=== PATIENT | male | born 1970 | race Caucasian/White ===

== ENCOUNTER 2024-06-07 15:26 | Inpatient (IN) ==
--- NOTE | 2024-06-07 16:02 | Emergency Department Note ---
Impression & Plan Alcoholic hepatitis with ascites, Jaundice, Alcohol use disorder, severe, dependence, Hyponatremia, Transaminitis, Elevated serum creatinine ED Provider Note NAME: RADHA WEEKS AGE: 53 SEX: M : 1970 ARRIVES VIA: Walk-In INFORMANT: Patient ED PROVIDER(S): Ramakrishna Sahu DO CHIEF COMPLAINT: Weakness, shortness of breath, jaundice HPI: Patient is a 53-year-old male who presents to the ER brought in for weakness, shortness of breath, and sleepiness. Symptoms started over a month ago. Patient notes that he has been gradually turning yellow. Family believes that this is actually has been present for the past 2 weeks. He admits to shortness of breath with exertion. Swelling of the legs which has been present for the past month. Admits to increased swelling in the abdomen which has been present for the past month. Denies any dysuria, urgency, or frequency. Admits to drinking a box of wine per day. Last drink was 1 PM today. No focal weakness or numbness in the arms legs. ADDITIONAL HISTORY OBTAINED: Girlfriend is present at bedside and notes that he has become more jaundiced over the past month. Sisters present bedside notes that he is been an alcoholic for the past several decades. Chronic Medical/Social Conditions Affecting Care: Per HPI PAST MEDICAL HISTORY:See Below PAST SURGICAL HISTORY:See Below FAMILY HISTORY:See Below SOCIAL HISTORY:See Below HOME MEDICATIONS:See Below ALLERGIES:See Below VITALS:See Below PHYSICAL EXAMINATION: GENERAL: Sitting up in bed, alert, jaundice of the face abdomen and legs EYE EXAM: normal conjunctiva. OROPHARYNX: mucous membranes are moist LUNGS: Clear to auscultation. Normal chest wall mechanics HEART: no murmurs, S1 normal and S2 normal ABDOMEN: abdomen soft, non-tender, normo-active bowel sounds, distended BACK: Back is symmetrical on inspection and there is no deformity, no midline tenderness, no CVA tenderness. SKIN: no rashes and no bruising UPPER EXTREMITIES: upper extremities are grossly normal. LOWER EXTREMITIES: Pitting edema NEURO EXAM: Normal sensorium, cranial nerves II-XII grossly intact, normal speech, no gross weakness of arms, no gross weakness of legs. MEDICAL DECISION MAKING: Patient is a 53-year-old male with a past medical history of alcohol abuse who presents to the ER for the above-stated complaint. IV was established and blood work was obtained. Labs showed a leukocytosis of 14,000 and mild anemia at 11. INR at 1.3. Hyponatremia at 114. CO2 slightly low at 19. Creatinine at 2.8. Transaminitis with AST of 212. ALT 64. Discussed with the kapok machine operator Dr. Griffin at 5:45 PM who recommended admission to the hospital service and close monitoring. No need for ICU admission at this time. T. bili at 40. Ammonia unable to calculate. Troponin mildly elevated at 40. Albumin at 3.3. Unable to calculate a lipase. UA shows epithelial cells. Urine sodium was ordered. Alcohol elevated at 170. CT abdomen pelvis shows pleural effusions and ascites as well as cirrhosis. Case was discussed with kapok machine operator Dr. Griffin who recommended admission to the hospitalist. Discussed with Dr. Lin who accept the patient to his service. Urine and serum osmole's are still pending upon admission. Patient was monitored closely. Consults/Care Managements Discussions: Per [facility] Triage Nursing notes reviewed. Limited review of prior medical records performed Vital Signs: reviewed and remarkable for no significant abnormalities Differential diagnosis: Infection, dehydration, metabolic abnormality, hypo/hyperglycemia, electrolyte disturbance, anemia, hypoxia, cardiac sources, intracerebral event, toxicologic, neurologic, as well as other pathologies. ER treatment provided: See below Diagnostics interpreted by me include EKG and cardiac monitoring as listed below: -Cardiac Monitoring: An order was placed for continuous cardiac monitoring. The monitor shows a rate of 90 with sinus rhythm. -ECG: Sinus rhythm rate 88 Normal axis No PVCs QTc 450 -Laboratory studies:Interpreted by me as stated above in MDM and shown below. Imaging studies: Xrays: As interpreted by me: Portable AP portable view of the chest shows no focal Lutrate CTs show: CT of the abdomen pelvis as described above Procedures:none Critical Care: I have personally spent 35 minutes of critical care time in the direct management of this patient. This includes bedside care, interpretation of diagnostic studies, and testing, discussion with consultants, patient, and family members, and other required patient management activities. This 35 minutes is in excess of all separately billable procedures. Past Med/Surg History Problem List (Updated 06/07/24 @ 18:47 by Willy Lo DO) Elevated serum creatinine Transaminitis Hyponatremia Alcohol use disorder, severe, dependence Jaundice Alcoholic hepatitis with ascites Social History Smoking Status: Never smoker Preferred Language: Namibian Feels Safe at Home: Yes Allergies Allergies Allergy/AdvReac Type Severity Reaction Status Date / Time No Known Allergies Allergy Verified 06/07/24 18:16 Home Meds Home Medications Medication Instructions Recorded Confirmed cholecalciferol (vitamin D3) 25 0 mcg PO DAILY 06/07/24 06/07/24 mcg (1,000 unit) capsule (Vitamin D3) cyanocobalamin (vitamin B-12) 0 mcg PO DAILY 06/07/24 06/07/24 1,000 mcg tablet (Vitamin B-12) empagliflozin 10 mg tablet 10 mg PO DAILY 06/07/24 06/07/24 (Jardiance) folic acid 400 mcg tablet 400 mcg PO DAILY 06/07/24 06/07/24 loratadine 10 mg tablet 10 mg PO DAILY 06/07/24 06/07/24 losartan 100 mg tablet 100 mg PO DAILY 06/07/24 06/07/24 omeprazole 40 mg capsule,delayed 40 mg PO DAILY 06/07/24 06/07/24 release Results & Data (ED) Vital Signs Vital Signs - 24 hr 06/07/24 15:32 06/07/24 15:53 06/07/24 15:53 Temperature 36.1 C L Temperature Source Temporal Artery Scan Pulse Rate 96 H Pulse Rate [Apical] 89 Respiratory Rate 12 15 Respiratory Effort / Characteristics Non-Labored Spontaneous Non-Labored Spontaneous Respiratory Depth Normal Normal Respiratory Pattern Regular Blood Pressure 118/72 Blood Pressure [Right Arm] 133/75 Blood Pressure Mean 87 Blood Pressure Mean [Right Arm] 94 Pulse Oximetry 98 97 99 Oxygen Delivery Method Room Air Room Air Room Air Sepsis Recent Fever Within 48 Hours No Sepsis New/Unexplained Change in Mental Status No Sepsis Action Taken by Nursing No Action Required 06/07/24 16:05 06/07/24 17:28 06/07/24 17:41 Temperature Temperature Source Pulse Rate 90 Pulse Rate [Apical] 87 Respiratory Rate 24 Respiratory Effort / Characteristics Non-Labored Respiratory Depth Normal Respiratory Pattern Blood Pressure Blood Pressure [Right Arm] 122/73 Blood Pressure Mean Blood Pressure Mean [Right Arm] 89 Pulse Oximetry 99 99 Oxygen Delivery Method Room Air Sepsis Recent Fever Within 48 Hours Sepsis New/Unexplained Change in Mental Status Sepsis Action Taken by Nursing Laboratory Data 06/07/24 15:49 06/07/24 15:49 Lab Results 06/07/24 06/07/2406/07/25 Range/Units 15:40 15:49 16:45 WBC 14.03 H (4.8-10.8) K/ul RBC 3.17 L (4.70-6.10) M/uL Hgb 11.0 L (14.0-18.0) g/dl Hct 29.8 L (42.0-52.0) % MCV 94.0 (80.0-100.0) fL MCH 34.7 H (25.0-34.0) pg MCHC 36.9 H (32.0-36.0) g/dL RDW Std Deviation 59.0 H (36.4-46.3) fL RDW Coeff of Rosalia 17.1 H (11.5-14.5) % Plt Count 167 (130-400) K/uL MPV 11.0 (9.4-12.4) fL Immature Gran % (Auto) 1.1 % Neut % (Auto) 86.7 % Lymph % (Auto) 3.5 % [place] % (Auto) 7.8 % Eos % (Auto) 0.3 % Baso % (Auto) 0.6 % Neut # (Auto) 12.17 H (1.40-6.50) K/uL Lymph # (Auto) 0.49 L (1.20-3.40) K/uL [place] # (Auto) 1.09 H (0.11-0.59) K/uL Eos # (Auto) 0.04 (0.00-0.50) K/uL Baso # (Auto) 0.08 (0.00-0.20) K/uL Immature Gran # (Auto) 0.16 (0.01-0.20) K/uL PT 13.5 H (9.0-12.0) Seconds INR 1.3 H (0.9-1.1) Sodium 114 L* (136-145) mmol/L Potassium 4.9 (3.5-5.1) mmol/L Chloride 84 L (98-107) mmol/L Carbon Dioxide 19 L (21-32) mmol/L Anion Gap 11 (3-11) BUN TNP Creatinine 2.82 H (0.6-1.4) mg/dl Est Cr Clr Drug Dosing 36.6 ml/min eGFR 26.10 BUN/Creatinine Ratio TNP Glucose 133 H (70-99(Fasting)) mg/dl POC Glucose 136 H (70-99) mg/dl Calcium 8.5 L (8.6-10.3) mg/dl Total Bilirubin 40.8 H (0.2-1.0) mg/dl AST 212 H (13-39) U/L ALT 64 H (7-52) U/L Alkaline Phosphatase TNP Ammonia TNP Troponin I High Sens 40.7 H (0-20) pg/ml Total Protein 6.4 (6.0-8.3) gm/dl Albumin 3.3 L (3.4-5.0) gm/dl Globulin 3.1 (2.5-4.0) gm/dl Albumin/Globulin Ratio 1.1 (0.9-2) Lipase TNP Urine Color See Comment Urine Appearance Clear (Clear) Urine pH Not Reportable Ur Specific [place] 1.018 (1.000-1.030) Urine Protein Not Reportable Urine Glucose (UA) Not Reportable Urine Ketones Not Reportable Urine Blood Not Reportable Urine Nitrite Not Reportable Urine Bilirubin Not Reportable Urine Urobilinogen Not Reportable Ur Leukocyte Esterase Not Reportable Urine RBC 3-5 H (0-2) /hpf Urine WBC 0-5 (0-5) /hpf Ur Epithelial Cells 3-5 H (0-2) /hpf Urine Bacteria None Seen (None Seen) Urine Osmolality Ethyl Alcohol mg/dL 171.4 H (<10.0) mg/dl 06/07/24 Range/Units Unknown WBC (4.8-10.8) K/ul RBC (4.70-6.10) M/uL Hgb (14.0-18.0) g/dl Hct (42.0-52.0) % MCV (80.0-100.0) fL MCH (25.0-34.0) pg MCHC (32.0-36.0) g/dL RDW Std Deviation (36.4-46.3) fL RDW Coeff of Rosalia (11.5-14.5) % Plt Count (130-400) K/uL MPV (9.4-12.4) fL Immature Gran % (Auto) % Neut % (Auto) % Lymph % (Auto) % [place] % (Auto) % Eos % (Auto) % Baso % (Auto) % Neut # (Auto) (1.40-6.50) K/uL Lymph # (Auto) (1.20-3.40) K/uL [place] # (Auto) (0.11-0.59) K/uL Eos # (Auto) (0.00-0.50) K/uL Baso # (Auto) (0.00-0.20) K/uL Immature Gran # (Auto) (0.01-0.20) K/uL PT (9.0-12.0) Seconds INR (0.9-1.1) Sodium (136-145) mmol/L Potassium (3.5-5.1) mmol/L Chloride (98-107) mmol/L Carbon Dioxide (21-32) mmol/L Anion Gap (3-11) BUN Creatinine (0.6-1.4) mg/dl Est Cr Clr Drug Dosing ml/min eGFR BUN/Creatinine Ratio Glucose (70-99(Fasting)) mg/dl POC Glucose (70-99) mg/dl Calcium (8.6-10.3) mg/dl Total Bilirubin (0.2-1.0) mg/dl AST (13-39) U/L ALT (7-52) U/L Alkaline Phosphatase Ammonia Troponin I High Sens (0-20) pg/ml Total Protein (6.0-8.3) gm/dl Albumin (3.4-5.0) gm/dl Globulin (2.5-4.0) gm/dl Albumin/Globulin Ratio (0.9-2) Lipase Urine Color Urine Appearance (Clear) Urine pH Ur Specific [place] (1.000-1.030) Urine Protein Urine Glucose (UA) Urine Ketones Urine Blood Urine Nitrite Urine Bilirubin Urine Urobilinogen Ur Leukocyte Esterase Urine RBC (0-2) /hpf Urine WBC (0-5) /hpf Ur Epithelial Cells (0-2) /hpf Urine Bacteria (None Seen) Urine Osmolality Cancelled Ethyl Alcohol mg/dL (<10.0) mg/dl Administered Medications Discontinued Medications Sodium Chloride (Nss) 1,000 mls @ 999 mls/hr IV .Q1H1M ONE Stop: 06/07/24 18:16 Last Admin: 06/07/24 18:08 Dose: 999 mls/hr Documented By: MIGEL Thiamine HCl 100 mg/ Syringe 10 mls @ 2 mls/min IV NOW STA Stop: 06/07/24 17:20 Last Admin: 06/07/24 18:38 Dose: 2 mls/min Documented By: MIGEL Folic Acid 1 mg/ Syringe 10 mls @ 5 mls/min IV NOW STA Stop: 06/07/24 17:17 Last Admin: 06/07/24 18:38 Dose: 5 mls/min Documented By: MIGEL Imaging Data Radiologist's Impression: Chest X-Ray 06/07/24 15:59 EXAM: XR chest 1V portable CLINICAL HISTORY: sob TECHNIQUE: An X-ray image of the chest is obtained in 1 AP projection. COMPARISON: No prior studies are available for comparison. FINDINGS: Pulmonary Parenchyma: No evidence of consolidation, collapse, or focal opacities. No pulmonary nodules are identified. No evidence of pleural effusion or pleural thickening. Heart and Mediastinum: Heart size and shape are normal. No mediastinal widening or masses. No hilar or mediastinal lymphadenopathy. Bony Thorax: Bony thorax appears intact without fractures or deformities. Osteodegenerative changes of visulaized shoulder joint Soft Tissues: Soft tissues overlying the chest wall are unremarkable. IMPRESSION: No acute cardiopulmonary findings. Electronically signed by Onur [place] 06-07-2024 5:34 PM Abdomen/Pelvis CT 06/07/24 17:14 EXAMINATION: CT of the abdomen and pelvis performed without contrast TECHNIQUE: Helical CT images from the lung bases through the symphysis pubis were obtained without contrast. Coronal and sagittal reformatted images were generated at a workstation for further assessment. Dose reduction techniques were achieved by using automatic exposure control and/or adjustment of mA and/or kV according to patient size and/or use of iterative reconstruction technique. COMPARISON: None HISTORY: Abdominal pain FINDINGS: Lower chest: There are moderate pleural effusions. Bibasilar atelectasis. Liver: A low-density focus measuring approximately 15 mm is seen at the dome of the liver on axial image 17. The liver appears enlarged and is markedly fatty infiltrated, measuring 24.2 cm craniocaudal. Gallbladder: A single small gallstone is seen. No evidence of acute cholecystitis. Spleen: Enlarged measuring 15.6 cm craniocaudal. Pancreas: No suspicious pancreatic lesions. The pancreatic duct is not dilated. Adrenal glands: No adrenal nodules. Kidneys: No hydronephrosis or obstructing renal stones. Bladder / Pelvic organs: Unremarkable. Bowel: No bowel obstruction. No abnormal bowel wall thickening. The appendix is unremarkable. Lymph nodes: No retroperitoneal, mesenteric, or pelvic lymphadenopathy. Peritoneum / Retroperitoneum: Moderate ascites. Vessels: No infrarenal aortic aneurysm. Bones and soft tissues: No suspicious lesion in the bones. Severe degenerative changes noted about the superior portions of the hips. IMPRESSION: Hepatomegaly and hepatic steatosis noted. Steatosis is severe, and the possibility of steatohepatitis is considered. Splenomegaly and moderate ascites as well as pleural effusions may be due to portal hypertension in the setting of intrinsic liver disease, such as cirrhosis or fibrosis. There is an ill-defined low-density lesion in the liver measuring 15 mm, which is indeterminate. Recommend follow-up MRI. Electronically signed by Noel Ortiz 06-07-2024 6:19 PM Discharge Plan Visit Data Chief Complaint: Confusion Stated Complaint: JAUNDICE, CONFUSION, UNABALANCED, VIS CHANGES ED Provider: Ramakrishna Sahu Discharge Problem: Alcoholic hepatitis with ascites, Jaundice, Alcohol use disorder, severe, dependence, Hyponatremia, Transaminitis, Elevated serum creatinine Forms Stand Alone Forms: My [facility] Jaco Solarsi Prescriptions Prescriptions: No Action cyanocobalamin (vitamin B-12) [Vitamin B-12] 1,000 mcg Tablet 0 mcg PO DAILY Rx Instructions: PT AND FAMILY UNSURE OF STRENGTH folic acid 400 mcg tablet 400 mcg PO DAILY omeprazole 40 mg capsule,delayed release(DR/EC) 40 mg PO DAILY losartan 100 mg tablet 100 mg PO DAILY loratadine 10 mg Tablet 10 mg PO DAILY cholecalciferol (vitamin D3) [Vitamin D3] 25 mcg (1,000 unit) Capsule 0 mcg PO DAILY Rx Instructions: PT AND FAMILY UNSURE OF STRENGTH Jardiance 10 mg tablet 10 mg PO DAILY Referrals Referrals: PCP,NO [Physician] -
[2024-06-07 16:12] LABS: Hematocrit (blood only) 29.8 % (42.0-52.0); Mean Corpuscular Hemoglobin 34.7 pg (25.0-34.0); Mean Corpuscular Hgb Conc 36.9 g/dL (32.0-36.0); Red Blood Count 3.17 M/uL (4.70-6.10); White Blood Count 14.03 K/ul (4.8-10.8)
[2024-06-07 16:13] LABS: Basophils # (auto) 0.08 K/uL (0.00-0.20); Basophils % (auto) 0.6 %; Eosinophils # (auto) 0.04 K/uL (0.00-0.50); Eosinophils % (auto) 0.3 %; Immature Granulocytes # (auto) 0.16 K/uL (0.01-0.20); Immature Granulocytes % (auto) 1.1 %; Lymphocytes # (auto) 0.49 K/uL (1.20-3.40); Lymphocytes % (auto) 3.5 %; Monocytes # (auto) 1.09 K/uL (0.11-0.59); Monocytes % (auto) 7.8 %; Neutrophils # (auto) 12.17 K/uL (1.40-6.50); Neutrophils % (auto) 86.7 %; Platelet Count 167 K/uL (130-400); RDW Coefficient of Variation 17.1 % (11.5-14.5)
[2024-06-07 16:43] LABS: INR 1.3 (0.9-1.1); Prothrombin Time 13.5 Seconds (9.0-12.0)
[2024-06-07 17:11] LABS: Appearance Urine Clear (Clear); Specific Gravity Urine 1.018 (1.000-1.030)
[2024-06-07 17:13] LABS: Sodium 114 mmol/L (136-145)
[2024-06-07 17:14] LABS: Alanine Aminotransferase 64 U/L (7-52); Albumin Globulin Ratio 1.1 (0.9-2); Albumin Level 3.3 gm/dl (3.4-5.0); Anion Gap 11 (3-11); Aspartate Aminotransferase 212 U/L (13-39); Bilirubin,Total 40.8 mg/dl (0.2-1.0); Calcium 8.5 mg/dl (8.6-10.3); Carbon Dioxide 19 mmol/L (21-32); Chloride 84 mmol/L (98-107); Creatinine Clr Calc Pharmacy 36.6 ml/min; Globulin 3.1 gm/dl (2.5-4.0); Glucose 133 mg/dl (70-99(Fasting)); Potassium 4.9 mmol/L (3.5-5.1); Total Protein 6.4 gm/dl (6.0-8.3); Troponin I High Sensitivity 40.7 pg/ml (0-20)
[2024-06-07 17:22] LABS: Bacteria Urine None Seen (None Seen); WBC Urine 0-5 /hpf (0-5)
--- NOTE | 2024-06-07 17:35 | XRay Report ---
EXAM: XR chest 1V portable CLINICAL HISTORY: sob TECHNIQUE: An X-ray image of the chest is obtained in 1 AP projection. COMPARISON: No prior studies are available for comparison. FINDINGS: Pulmonary Parenchyma: No evidence of consolidation, collapse, or focal opacities. No pulmonary nodules are identified. No evidence of pleural effusion or pleural thickening. Heart and Mediastinum: Heart size and shape are normal. No mediastinal widening or masses. No hilar or mediastinal lymphadenopathy. Bony Thorax: Bony thorax appears intact without fractures or deformities. Osteodegenerative changes of visulaized shoulder joint Soft Tissues: Soft tissues overlying the chest wall are unremarkable. IMPRESSION: No acute cardiopulmonary findings. Electronically signed by Onur [place] 06-07-2024 5:34 PM
[2024-06-07] MEDS: SODIUM CHLORIDE 0.9% 1,000 ML IV ONE (18:08)
[2024-06-07] MEDS ORDERED: Ativan IV Alcohol Withdrawal--Active Protocol IV PRN (18:14)
[2024-06-07] MEDS ORDERED: LORazepam 2 MG/1 ML VIAL IV PRN (18:14)
--- NOTE | 2024-06-07 18:19 | CT Scan Report ---
EXAMINATION: CT of the abdomen and pelvis performed without contrast TECHNIQUE: Helical CT images from the lung bases through the symphysis pubis were obtained without contrast. Coronal and sagittal reformatted images were generated at a workstation for further assessment. Dose reduction techniques were achieved by using automatic exposure control and/or adjustment of mA and/or kV according to patient size and/or use of iterative reconstruction technique. COMPARISON: None HISTORY: Abdominal pain FINDINGS: Lower chest: There are moderate pleural effusions. Bibasilar atelectasis. Liver: A low-density focus measuring approximately 15 mm is seen at the dome of the liver on axial image 17. The liver appears enlarged and is markedly fatty infiltrated, measuring 24.2 cm craniocaudal. Gallbladder: A single small gallstone is seen. No evidence of acute cholecystitis. Spleen: Enlarged measuring 15.6 cm craniocaudal. Pancreas: No suspicious pancreatic lesions. The pancreatic duct is not dilated. Adrenal glands: No adrenal nodules. Kidneys: No hydronephrosis or obstructing renal stones. Bladder / Pelvic organs: Unremarkable. Bowel: No bowel obstruction. No abnormal bowel wall thickening. The appendix is unremarkable. Lymph nodes: No retroperitoneal, mesenteric, or pelvic lymphadenopathy. Peritoneum / Retroperitoneum: Moderate ascites. Vessels: No infrarenal aortic aneurysm. Bones and soft tissues: No suspicious lesion in the bones. Severe degenerative changes noted about the superior portions of the hips. IMPRESSION: Hepatomegaly and hepatic steatosis noted. Steatosis is severe, and the possibility of steatohepatitis is considered. Splenomegaly and moderate ascites as well as pleural effusions may be due to portal hypertension in the setting of intrinsic liver disease, such as cirrhosis or fibrosis. There is an ill-defined low-density lesion in the liver measuring 15 mm, which is indeterminate. Recommend follow-up MRI. Electronically signed by Noel Ortiz 06-07-2024 6:19 PM
--- NOTE | 2024-06-07 18:19 | History & Physical Report ---
Date of Service June 07, 2024 Assessment & Plan (1) Alcoholic hepatitis with ascites: (2) Jaundice: (3) Alcohol use disorder, severe, dependence: (4) Hyponatremia: (5) Transaminitis: (6) Elevated serum creatinine: (7) Elevated troponin: Plan 53 yo male PMHx T2DM, HTN, GERD admitted for progressive jaundice. #Alcoholic Hepatitis/Jaundice/EtOH Use Disorder Meld 36 AWSS protocol with IV lorazepam If patient experiences severe w/d would recommend ICU status with phenobarbital Significant Ascites and Edema - CT demonstrates liver lesion, f/u MRI ordered as recommended Daily thiamine and folate Ammonia pending - if elevated start lactulose Coags with mild elevation #Hyponatremia In setting of poor solute intake, beer-potomania Q6h 3% saline infusions Monitor chemistries Salt tab BID Aim for 0.5 mmol/hr #Troponin elevation Likely 2/2 metabolic demand Will check echo #Leukocytosis No febrile illness Daily CBC History of Present Illness Primary Care Provider: Jeny Marte MD 53 yo male PMHx T2DM, HTN, GERD admitted for progressive jaundice. Admits to drinking a box of wine (equivalant to 4 bottles) daily for at least several years. Over the last week or two he noticed that his skin was beginning to yellow. States that he has been feeling sluggish without appetite. His partner noticed over the last week his b/l LE have been edematous. Currently without withdraw symptoms. ED Course: Labs performed and significant for: mild leukocytosis, PT/INR elevation, hyponatremia, hypochloremia, elevated creatinine, hyperbilirubinemia, transaminitis, mild troponin elevation, EtOH level 171.4 CT AP: Hepatomegaly and hepatic steatosis noted. Steatosis is severe, and the possibility of steatohepatitis is considered. Splenomegaly and moderate ascites as well as pleural effusions may be due to portal hypertension in the setting of intrinsic liver disease, such as cirrhosis or fibrosis. Received 1L NSS, 100mg thiamine, 1mg folate Allergies Allergy/AdvReac Type Severity Reaction Status Date / Time No Known Allergies Allergy Verified 06/07/24 18:16 Home Medications Medication Instructions Recorded Confirmed Type cholecalciferol (vitamin D3) 25 0 mcg PO DAILY 06/07/24 06/07/24 History mcg (1,000 unit) capsule (Vitamin D3) cyanocobalamin (vitamin B-12) 0 mcg PO DAILY 06/07/24 06/07/24 History 1,000 mcg tablet (Vitamin B-12) empagliflozin 10 mg tablet 10 mg PO DAILY 06/07/24 06/07/24 History (Jardiance) folic acid 400 mcg tablet 400 mcg PO DAILY 06/07/24 06/07/24 History loratadine 10 mg tablet 10 mg PO DAILY 06/07/24 06/07/24 History losartan 100 mg tablet 100 mg PO DAILY 06/07/24 06/07/24 History omeprazole 40 mg capsule,delayed 40 mg PO DAILY 06/07/24 06/07/24 History release Past Med/Surg History Problem List (Updated 06/07/24 @ 19:20 by Willy Lo, DO) Elevated troponin Elevated serum creatinine Transaminitis Hyponatremia Alcohol use disorder, severe, dependence Jaundice Alcoholic hepatitis with ascites Social History Smoking Status: Never smoker Preferred Language: B[place]udian Feels Safe at Home: Yes Review of Systems Review of Systems: reviewed, per HPI Physical Exam Physical Exam: Constitutional: ill appearing, NAD HEENT: +scleral icterus CV: regular rhythm, no murmur appreciated, extremities well-perfused, 2+ pitting edema Resp: CTABL, no wheezes/rales/rhonchi appreciated, no increased work of breathing GI: Distended MSK: no gross deformities appreciated Skin: +jaundice Neuro: alert, oriented, no focal neurologic deficit appreciated Results & Data Results & Data Vital Signs (Past 12 Hours) Vital Signs Temp Pulse Pulse Resp BP BP Pulse Ox 06/07/24 17:41 90 06/07/24 17:28 87 24 122/73 99 06/07/24 16:05 99 06/07/24 15:53 99 06/07/24 15:53 89 15 133/75 97 06/07/24 15:32 36.1 C L 96 H 12 118/72 98 O2 Del Method 06/07/24 17:41 06/07/24 17:28 Room Air 06/07/24 16:05 06/07/24 15:53 Room Air 06/07/24 15:53 Room Air 06/07/24 15:32 Room Air Supervising Physician Co-Signing Physician Notes Attending attestation Pt seen and examined in concert with Dr. Lo. In agreement with the documented findings as noted in the resident documentation with any exceptions or additions as noted here. Longstanding etOH use w/ multiple litre of wine per day x 10 + years without significant healthcare encounter preceing 2 months ago with new onset DMII started on empagliflozin and losartan for HTN. Feeling diffusely off, but mostly concern from family re: jaundice. On examination, S1/S2 nl RRR no MCG. CTAB. Abd distended, nontender abdomen BS+ve. 2+ pitting edema to the knee. Diffuse jaundice. Acute alcoholic hepatitis with jaundice, concern for cirrhosis - GI consult - trend CMP, CMP, PT/INR. Check hepatitis labs. Alcohol with concern for acute withdrawal - etOH 171.4 on presentation - thiamine, folate, ativan with AWSS, low threshold for ICU evaluation Hyponatremia - 114 - trend sodium q6 hr, start with 100ml IV bolus hypertonic saline. Add salt tabs. JARAD in the setting of above - caution with hydration in the setting of fluid overload and hypernatremia Leukocytosis without febrile illness - continue to monitor in AM. DMII - hold jardiance, losartan 2/2 JARAD Else see resident documentation as noted. Resident Activity Tracking Resident Involvement: Resident Care Provided Care Provided: Adult Hospital Medicine
[2024-06-07] MEDS: FOLIC ACID 1 MG in SYRINGE 9.8 ML IV STA (18:38)
[2024-06-07] MEDS: THIAMINE HCL 100 MG in SYRINGE 9 ML IV STA (18:38)
[2024-06-07] MEDS ORDERED: STAT IV/IM STA (18:56)
[2024-06-07 19:04] LABS: Bilirubin,Total 37.3 mg/dl (0.2-1.0)
[2024-06-07] MEDS: SODIUM CHLORIDE 3 % 100 ML IV ONE (19:10)
[2024-06-07 20:00] LABS: Bilirubin Direct 21.3 mg/dl (0-0.2)
[2024-06-07] MEDS ORDERED: MAGNESIUM HYDROXIDE SUSP 30 ML UDC PO PRN (20:28)
[2024-06-07] MEDS ORDERED: POLYETHYLENE (MIRALAX) 17 GM PACK PO PRN (20:28)
[2024-06-07] MEDS ORDERED: ALUMINUM/MAGNESIUM SUSP 30 ML UDC PO PRN (20:28)
[2024-06-07] MEDS ORDERED: ONDANSETRON INJ 2 MG/ML 2 ML VIAL IV PRN (20:28)
[2024-06-07 20:40] LABS: Anion Gap 10 (3-11); Calcium 7.9 mg/dl (8.6-10.3); Carbon Dioxide 18 mmol/L (21-32); Chloride 87 mmol/L (98-107); Creatinine Clr Calc Pharmacy 40.2 ml/min; Glucose 106 mg/dl (70-99(Fasting)); Potassium 4.8 mmol/L (3.5-5.1); Sodium 115 mmol/L (136-145)
[2024-06-07] MEDS: LACTULOSE SYRUP 20 GM/30 ML UDC PO ONE (20:44)
[2024-06-07] MEDS: LORazepam 2 MG/1 ML VIAL IV PRN (20:54)
[2024-06-07] MEDS ORDERED: SODIUM CHLORIDE 1 GM TABLET PO SCH (21:00)
[2024-06-08] MEDS: PANTOprazole 40 MG/10 ML SYR IV SCH (00:10)
[2024-06-08 00:42] LABS: Hemoglobin 10.1 g/dl (14.0-18.0)
[2024-06-08 01:09] LABS: Anion Gap 10 (3-11); Calcium 7.8 mg/dl (8.6-10.3); Carbon Dioxide 17 mmol/L (21-32); Chloride 88 mmol/L (98-107); Creatinine Clr Calc Pharmacy 45.8 ml/min; Glucose 112 mg/dl (70-99(Fasting)); Potassium 4.7 mmol/L (3.5-5.1); Sodium 115 mmol/L (136-145)
[2024-06-08] MEDS ORDERED: STAT IV/IM STA (01:11)
[2024-06-08] MEDS: SODIUM CHLORIDE 3 % 100 ML IV ONE (01:37)
[2024-06-08 04:38] LABS: Base Excess VBG -8.6 mEq/L; HCO3 VBG 16 mmol/L; Oxygen Saturation VBG 79.1 %; PCO2 VBG 28 mmHg (38-50); PO2 VBG 46 mmHg; pH VBG 7.35 (7.36-7.41)
[2024-06-08 05:02] LABS: Calcium 7.9 mg/dl (8.6-10.3); Carbon Dioxide 17 mmol/L (21-32); Chloride 88 mmol/L (98-107); Glucose 104 mg/dl (70-99(Fasting)); Potassium 4.7 mmol/L (3.5-5.1); Sodium 116 mmol/L (136-145)
[2024-06-08 05:03] LABS: Anion Gap 11 (3-11); Creatinine Clr Calc Pharmacy 52.1 ml/min; Total Protein 5.6 gm/dl (6.0-8.3)
[2024-06-08 05:26] LABS: INR 1.3 (0.9-1.1)
[2024-06-08 05:54] LABS: Alanine Aminotransferase 57 U/L (7-52); Albumin Globulin Ratio 1.2 (0.9-2); Aspartate Aminotransferase 183 U/L (13-39); Bilirubin,Total 37.9 mg/dl (0.2-1.0); Globulin 2.6 gm/dl (2.5-4.0)
[2024-06-08 06:22] LABS: Hematocrit (blood only) 26.2 % (42.0-52.0); Mean Corpuscular Hemoglobin 33.3 pg (25.0-34.0); Mean Corpuscular Hgb Conc 35.3 g/dL (32.0-36.0); Mean Corpuscular Volume 92.3 fL (80.0-100.0); Mean Platelet Volume 10.7 fL (9.4-12.4); Platelet Count 144 K/uL (130-400); RDW Coefficient of Variation 16.9 % (11.5-14.5); Red Blood Count 2.84 M/uL (4.70-6.10); White Blood Count 11.21 K/ul (4.8-10.8)
[2024-06-08 06:36] LABS: Basophils # (auto) 0.07 K/uL (0.00-0.20); Basophils % (auto) 0.6 %; Eosinophils % (auto) 0.9 %; Immature Granulocytes # (auto) 0.15 K/uL (0.01-0.20); Immature Granulocytes % (auto) 1.3 %; Lymphocytes # (auto) 0.54 K/uL (1.20-3.40); Lymphocytes % (auto) 4.8 %; Monocytes # (auto) 0.93 K/uL (0.11-0.59); Monocytes % (auto) 8.3 %; Neutrophils # (auto) 9.42 K/uL (1.40-6.50); Neutrophils % (auto) 84.1 %; Polychromasia 2+; Target Cells 1+
[2024-06-08 08:38] LABS: Anion Gap 10 (3-11); Calcium 7.8 mg/dl (8.6-10.3); Carbon Dioxide 17 mmol/L (21-32); Chloride 89 mmol/L (98-107); Creatinine Clr Calc Pharmacy 54.3 ml/min; Glucose 108 mg/dl (70-99(Fasting)); Potassium 4.6 mmol/L (3.5-5.1); Sodium 116 mmol/L (136-145)
[2024-06-08] MEDS: FOLIC ACID 1 MG in SYRINGE 9.8 ML IV SCH (08:45)
[2024-06-08] MEDS: THIAMINE HCL 200 MG in SODIUM CHLORIDE 0.9% 50 ML IV SCH (08:46)
[2024-06-08] MEDS: LACTULOSE SYRUP 20 GM/30 ML UDC PO SCH (08:48)
[2024-06-08] MEDS: CYANOCOBALAMIN (B-12) 500 MCG TABLET PO SCH (08:48)
[2024-06-08] MEDS: CHOLECALCIFEROL 25 MCG (1000 UNITS) TAB PO SCH (08:48)
[2024-06-08] MEDS: MULTIVITAMIN TAB PO SCH (08:48)
[2024-06-08] MEDS ORDERED: LOSARTAN POTASSIUM 50 MG TAB PO SCH ×2 (09:00)
[2024-06-08] MEDS ORDERED: PANTOprazole 40 MG TAB PO SCH (09:00)
--- NOTE | 2024-06-08 09:05 | Electrocardiogram Report ---
Test Reason : Blood Pressure : */* mmHG Vent. Rate : 88 BPM Atrial Rate : 88 BPM P-R Int : 168 ms QRS Dur : 102 ms QT Int : 372 ms P-R-T Axes : 114 -5 24 degrees QTcB Int : 450 ms Normal sinus rhythm Poor R wave progression, consider anterior SD vs. lead placement vs. LVH Abnormal ECG No previous ECGs available Confirmed by Earl Atwood ([id number]) on 06/08/2024 9:04:23 AM Referred By: Confirmed By: Earl Atwood
[2024-06-08] MEDS: LORATADINE 10 MG TAB PO SCH (09:32)
[2024-06-08 09:46] LABS: Hep B Surface Ag with confirm Negative (Negative)
[2024-06-08 09:50] LABS: Hep C Ab Rflx HepCQuant RNA Negative (Negative)
[2024-06-08 09:54] LABS: Hepatitis B Surface Ab Quant < 3.00 mIU/mL (>or=10mIU/mL Immune); Hepatitis B Surface Antibody Non-Immune
--- NOTE | 2024-06-08 10:15 | Gastrointestinal Consultation ---
Date of Consultation June 08, 2024 Assessment & Plan (1) Jaundice: Gentleman with obvious alcoholic hepatitis with jaundice and ascites. The main issue now is to treat problems as they occur. I suspect he will withdraw while he is here. I had a long discussion with him about his drinking and the fact that if he continues drinking he has a terminal disease. I would get a diagnostic paracentesis at some point. Would carefully diurese with his renal function and his sodium level. Would check and alpha-fetoprotein on him for this hepatic lesion. Use of steroids has always been controversial in alcoholic hepatitis. I have tended to not use them over the years but will leave that decision up to the primary team. He has heme (+) stools but that is likely just due to his drinking. He does need colonoscopy but that is the least of his issues now. History of Present Illness Reason for Consultation: alcoholic hepatitis Attending Physician: Ramakrishna Motley DO History of Present Illness 53 year old man admitted with jaundice and alcoholic hepatitis. His sister made him come in "immediately" yesterday because of his jaundice although he says physically he wasn't having much issue. He admits to drinking "four boxes of wine" per day "for a long time". He has been on omeprazole for 15 years but does not complain of any stomach problems other than the swelling in his abdomen now. He has never seen a GI doc for anything in the past and has never had screening colonoscopy. He currently thinks he might be starting to withdraw but otherwise he doesn't complain about much to me. Allergies Allergy/AdvReac Type Severity Reaction Status Date / Time No Known Allergies Allergy Verified 06/07/24 18:16 Home Medications Medication Instructions Recorded Confirmed Type cholecalciferol (vitamin D3) 25 0 mcg PO DAILY 06/07/24 06/07/24 History mcg (1,000 unit) capsule (Vitamin D3) cyanocobalamin (vitamin B-12) 0 mcg PO DAILY 06/07/24 06/07/24 History 1,000 mcg tablet (Vitamin B-12) empagliflozin 10 mg tablet 10 mg PO DAILY 06/07/24 06/07/24 History (Jardiance) folic acid 400 mcg tablet 400 mcg PO DAILY 06/07/24 06/07/24 History loratadine 10 mg tablet 10 mg PO DAILY 06/07/24 06/07/24 History losartan 100 mg tablet 100 mg PO DAILY 06/07/24 06/07/24 History omeprazole 40 mg capsule,delayed 40 mg PO DAILY 06/07/24 06/07/24 History release Patient History Social History (Updated 06/08/24 @ 10:14 by Dannielle Chew Jr, MD) Smoking Status: Never smoker Do You Dip or Chew Tobacco: No; Hx Alcohol Use: Yes Hx Substance Use: No Preferred Language: Uzbek Communication Ability: Effective 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 Beliefs That Will Affect Care: None Current Living Situation: Significant Other Current Living Situation Comment: with girlfriend Feels Safe at Home: Yes Assistive Devices: Glasses Review of Systems Review of Systems: All systems reviewed & are unremarkable except as noted in HPI & below Physical Exam Physical Exam: Markedly icteric, ill-appearing man in no over distress Constitutional: WD/WN, vitals as above Eyes: sclerae not anicteric Neck: trachea midline, no thyromegaly Respiratory: normal respiratory effort, lungs clear to auscultation Cardiovascular: RRR, no murmur, no edema Gastrointestinal (Abdomen): Inspection/Auscultation: + abdomen distended Percussion/Palpation: + ascites and + abdomen firm Results & Data Vital Signs (Past 12 Hours) Vital Signs Temp Pulse Pulse Resp BP BP Pulse Ox 06/08/24 07:22 36.3 C L 111 H 20 146/81 H 94 06/08/24 04:14 36.5 C 100 H 18 148/55 H 97 06/07/24 22:52 96 H 06/07/24 22:45 36.6 C 96 H 18 117/70 97 06/07/24 22:31 98 H 17 131/70 97 O2 Del Method 06/08/24 07:22 Room Air 06/08/24 04:14 Room Air 06/07/24 22:52 06/07/24 22:45 Room Air 06/07/24 22:31 Room Air Laboratory Results 06/08/24 06/08/24 06/08/24 Range/Units 07:37 04:24 04:00 WBC 11.21 H (4.8-10.8) K/ul RBC 2.84 L (4.70-6.10) M/uL Hgb 9.0 L (14.0-18.0) g/dl Hct 26.2 L (42.0-52.0) % MCV 92.3 (80.0-100.0) fL MCH 33.3 (25.0-34.0) pg MCHC 35.3 (32.0-36.0) g/dL RDW Std Deviation 57.0 H (36.4-46.3) fL RDW Coeff of Rosalia 16.9 H (11.5-14.5) % Plt Count 144 (130-400) K/uL MPV 10.7 (9.4-12.4) fL Immature Gran % (Auto) 1.3 % Neut % (Auto) 84.1 % Lymph % (Auto) 4.8 % Bates % (Auto) 8.3 % Eos % (Auto) 0.9 % Baso % (Auto) 0.6 % Neut # (Auto) 9.42 H (1.40-6.50) K/uL Lymph # (Auto) 0.54 L (1.20-3.40) K/uL Bates # (Auto) 0.93 H (0.11-0.59) K/uL Eos # (Auto) 0.10 (0.00-0.50) K/uL Baso # (Auto) 0.07 (0.00-0.20) K/uL Immature Gran # (Auto) 0.15 (0.01-0.20) K/uL Polychromasia 2+ Target Cells 1+ PT 14.0 H (9.0-12.0) Seconds INR 1.3 H (0.9-1.1) VBG pH 7.35 L (7.36-7.41) VBG pCO2 28 L (38-50) mmHg VBG pO2 46 mmHg VBG HCO3 16 mmol/L VBG O2 Saturation 79.1 % VBG Base Excess -8.6 mEq/L Sodium 116 L* 116 L* (136-145) mmol/L Potassium 4.6 4.7 (3.5-5.1) mmol/L Chloride 89 L 88 L (98-107) mmol/L Carbon Dioxide 17 L 17 L (21-32) mmol/L Anion Gap 10 11 (3-11) BUN TNP TNP Creatinine 2.32 H 2.42 H D (0.6-1.4) mg/dl Est Cr Clr Drug Dosing 54.3 52.1 ml/min eGFR 32.99 31.36 BUN/Creatinine Ratio TNP TNP Glucose 108 H 104 H (70-99(Fasting)) mg/dl POC Glucose (70-99) mg/dl Calcium 7.8 L 7.9 L (8.6-10.3) mg/dl Total Bilirubin 37.9 H (0.2-1.0) mg/dl Direct Bilirubin (0-0.2) mg/dl AST 183 H (13-39) U/L ALT 57 H (7-52) U/L Alkaline Phosphatase TNP Ammonia Troponin I High Sens (0-20) pg/ml Total Protein 5.6 L (6.0-8.3) gm/dl Albumin 3.0 L (3.4-5.0) gm/dl Globulin 2.6 (2.5-4.0) gm/dl Albumin/Globulin Ratio 1.2 (0.9-2) Lipase Urine Color Urine Appearance (Clear) Urine pH Ur Specific [place] (1.000-1.030) Urine Protein Urine Glucose (UA) Urine Ketones Urine Blood Urine Nitrite Urine Bilirubin Urine Urobilinogen Ur Leukocyte Esterase Urine RBC (0-2) /hpf Urine WBC (0-5) /hpf Ur Epithelial Cells (0-2) /hpf Urine Bacteria (None Seen) Urine Osmolality Ur Random Sodium mmol/L Stool Occult Bld Scrn Positive A (Negative) Ethyl Alcohol mg/dL (<10.0) mg/dl Hepatitis A Ab Total Pending Hep Bs Antigen Negative (Negative) Hep Bs Antibody Non-Immune Hep Bs Antibody, Quant < 3.00 (>or=10mIU/mL Immune) mIU/mL Hep B Core IgM Ab Pending Hepatitis C Antibody Negative (Negative) Miscellaneous Test Miscellaneous Test 2 Ref Lab Test Result 06/08/24 06/08/24 06/07/24 Range/Units 00:24 00:06 Unknown WBC (4.8-10.8) K/ul RBC (4.70-6.10) M/uL Hgb 10.1 L (14.0-18.0) g/dl Hct 27.0 L (42.0-52.0) % MCV (80.0-100.0) fL MCH (25.0-34.0) pg MCHC (32.0-36.0) g/dL RDW Std Deviation (36.4-46.3) fL RDW Coeff of Rosalia (11.5-14.5) % Plt Count (130-400) K/uL MPV (9.4-12.4) fL Immature Gran % (Auto) % Neut % (Auto) % Lymph % (Auto) % Bates % (Auto) % Eos % (Auto) % Baso % (Auto) % Neut # (Auto) (1.40-6.50) K/uL Lymph # (Auto) (1.20-3.40) K/uL Bates # (Auto) (0.11-0.59) K/uL Eos # (Auto) (0.00-0.50) K/uL Baso # (Auto) (0.00-0.20) K/uL Immature Gran # (Auto) (0.01-0.20) K/uL Polychromasia Target Cells PT (9.0-12.0) Seconds INR (0.9-1.1) VBG pH (7.36-7.41) VBG pCO2 (38-50) mmHg VBG pO2 mmHg VBG HCO3 mmol/L VBG O2 Saturation % VBG Base Excess mEq/L Sodium 115 L* (136-145) mmol/L Potassium 4.7 (3.5-5.1) mmol/L Chloride 88 L (98-107) mmol/L Carbon Dioxide 17 L (21-32) mmol/L Anion Gap 10 (3-11) BUN TNP Creatinine 2.75 H (0.6-1.4) mg/dl Est Cr Clr Drug Dosing 45.8 ml/min eGFR 26.90 BUN/Creatinine Ratio TNP Glucose 112 H (70-99(Fasting)) mg/dl POC Glucose (70-99) mg/dl Calcium 7.8 L (8.6-10.3) mg/dl Total Bilirubin (0.2-1.0) mg/dl Direct Bilirubin (0-0.2) mg/dl AST (13-39) U/L ALT (7-52) U/L Alkaline Phosphatase Ammonia Troponin I High Sens (0-20) pg/ml Total Protein (6.0-8.3) gm/dl Albumin (3.4-5.0) gm/dl Globulin (2.5-4.0) gm/dl Albumin/Globulin Ratio (0.9-2) Lipase Urine Color Urine Appearance (Clear) Urine pH Ur Specific [place] (1.000-1.030) Urine Protein Urine Glucose (UA) Urine Ketones Urine Blood Urine Nitrite Urine Bilirubin Urine Urobilinogen Ur Leukocyte Esterase Urine RBC (0-2) /hpf Urine WBC (0-5) /hpf Ur Epithelial Cells (0-2) /hpf Urine Bacteria (None Seen) Urine Osmolality Cancelled Ur Random Sodium < 10 mmol/L Stool Occult Bld Scrn (Negative) Ethyl Alcohol mg/dL (<10.0) mg/dl Hepatitis A Ab Total Hep Bs Antigen (Negative) Hep Bs Antibody Hep Bs Antibody, Quant (>or=10mIU/mL Immune) mIU/mL Hep B Core IgM Ab Hepatitis C Antibody (Negative) Miscellaneous Test Miscellaneous Test 2 Ref Lab Test Result 06/07/24 06/07/24 06/07/24 Range/Units 20:01 18:00 18:00 WBC (4.8-10.8) K/ul RBC (4.70-6.10) M/uL Hgb (14.0-18.0) g/dl Hct (42.0-52.0) % MCV (80.0-100.0) fL MCH (25.0-34.0) pg MCHC (32.0-36.0) g/dL RDW Std Deviation (36.4-46.3) fL RDW Coeff of Rosalia (11.5-14.5) % Plt Count (130-400) K/uL MPV (9.4-12.4) fL Immature Gran % (Auto) % Neut % (Auto) % Lymph % (Auto) % Bates % (Auto) % Eos % (Auto) % Baso % (Auto) % Neut # (Auto) (1.40-6.50) K/uL Lymph # (Auto) (1.20-3.40) K/uL Bates # (Auto) (0.11-0.59) K/uL Eos # (Auto) (0.00-0.50) K/uL Baso # (Auto) (0.00-0.20) K/uL Immature Gran # (Auto) (0.01-0.20) K/uL Polychromasia Target Cells PT (9.0-12.0) Seconds INR (0.9-1.1) VBG pH (7.36-7.41) VBG pCO2 (38-50) mmHg VBG pO2 mmHg VBG HCO3 mmol/L VBG O2 Saturation % VBG Base Excess mEq/L Sodium 115 L* (136-145) mmol/L Potassium 4.8 (3.5-5.1) mmol/L Chloride 87 L (98-107) mmol/L Carbon Dioxide 18 L (21-32) mmol/L Anion Gap 10 (3-11) BUN TNP Creatinine 2.57 H (0.6-1.4) mg/dl Est Cr Clr Drug Dosing 40.2 ml/min eGFR 29.17 BUN/Creatinine Ratio TNP Glucose 106 H (70-99(Fasting)) mg/dl POC Glucose (70-99) mg/dl Calcium 7.9 L (8.6-10.3) mg/dl Total Bilirubin (0.2-1.0) mg/dl Direct Bilirubin (0-0.2) mg/dl AST (13-39) U/L ALT (7-52) U/L Alkaline Phosphatase Ammonia Cancelled Troponin I High Sens (0-20) pg/ml Total Protein (6.0-8.3) gm/dl Albumin (3.4-5.0) gm/dl Globulin (2.5-4.0) gm/dl Albumin/Globulin Ratio (0.9-2) Lipase Urine Color Urine Appearance (Clear) Urine pH Ur Specific [place] (1.000-1.030) Urine Protein Urine Glucose (UA) Urine Ketones Urine Blood Urine Nitrite Urine Bilirubin Urine Urobilinogen Ur Leukocyte Esterase Urine RBC (0-2) /hpf Urine WBC (0-5) /hpf Ur Epithelial Cells (0-2) /hpf Urine Bacteria (None Seen) Urine Osmolality Ur Random Sodium mmol/L Stool Occult Bld Scrn (Negative) Ethyl Alcohol mg/dL (<10.0) mg/dl Hepatitis A Ab Total Hep Bs Antigen (Negative) Hep Bs Antibody Hep Bs Antibody, Quant (>or=10mIU/mL Immune) mIU/mL Hep B Core IgM Ab Hepatitis C Antibody (Negative) Miscellaneous Test Miscellaneous Test 2 Ref Lab Test Result Pending Pending 0406/07/24 06/07/24 Range/Units 18:00 18:00 16:45 WBC (4.8-10.8) K/ul RBC (4.70-6.10) M/uL Hgb (14.0-18.0) g/dl Hct (42.0-52.0) % MCV (80.0-100.0) fL MCH (25.0-34.0) pg MCHC (32.0-36.0) g/dL RDW Std Deviation (36.4-46.3) fL RDW Coeff of Rosalia (11.5-14.5) % Plt Count (130-400) K/uL MPV (9.4-12.4) fL Immature Gran % (Auto) % Neut % (Auto) % Lymph % (Auto) % Bates % (Auto) % Eos % (Auto) % Baso % (Auto) % Neut # (Auto) (1.40-6.50) K/uL Lymph # (Auto) (1.20-3.40) K/uL Bates # (Auto) (0.11-0.59) K/uL Eos # (Auto) (0.00-0.50) K/uL Baso # (Auto) (0.00-0.20) K/uL Immature Gran # (Auto) (0.01-0.20) K/uL Polychromasia Target Cells PT (9.0-12.0) Seconds INR (0.9-1.1) VBG pH (7.36-7.41) VBG pCO2 (38-50) mmHg VBG pO2 mmHg VBG HCO3 mmol/L VBG O2 Saturation % VBG Base Excess mEq/L Sodium (136-145) mmol/L Potassium (3.5-5.1) mmol/L Chloride (98-107) mmol/L Carbon Dioxide (21-32) mmol/L Anion Gap (3-11) BUN Creatinine (0.6-1.4) mg/dl Est Cr Clr Drug Dosing ml/min eGFR BUN/Creatinine Ratio Glucose (70-99(Fasting)) mg/dl POC Glucose (70-99) mg/dl Calcium (8.6-10.3) mg/dl Total Bilirubin 37.3 H (0.2-1.0) mg/dl Direct Bilirubin 21.3 H (0-0.2) mg/dl AST (13-39) U/L ALT (7-52) U/L Alkaline Phosphatase Ammonia Troponin I High Sens (0-20) pg/ml Total Protein (6.0-8.3) gm/dl Albumin (3.4-5.0) gm/dl Globulin (2.5-4.0) gm/dl Albumin/Globulin Ratio (0.9-2) Lipase Urine Color See Comment Urine Appearance Clear (Clear) Urine pH Not Reportable Ur Specific [place] 1.018 (1.000-1.030) Urine Protein Not Reportable Urine Glucose (UA) Not Reportable Urine Ketones Not Reportable Urine Blood Not Reportable Urine Nitrite Not Reportable Urine Bilirubin Not Reportable Urine Urobilinogen Not Reportable Ur Leukocyte Esterase Not Reportable Urine RBC 3-5 H (0-2) /hpf Urine WBC 0-5 (0-5) /hpf Ur Epithelial Cells 3-5 H (0-2) /hpf Urine Bacteria None Seen (None Seen) Urine Osmolality Ur Random Sodium mmol/L Stool Occult Bld Scrn (Negative) Ethyl Alcohol mg/dL (<10.0) mg/dl Hepatitis A Ab Total Hep Bs Antigen (Negative) Hep Bs Antibody Hep Bs Antibody, Quant (>or=10mIU/mL Immune) mIU/mL Hep B Core IgM Ab Hepatitis C Antibody (Negative) Miscellaneous Test Miscellaneous Test 2 Ref Lab Test Result Pending Pending 06/07/24 06/07/24 Range/Units 15:49 15:40 WBC 14.03 H (4.8-10.8) K/ul RBC 3.17 L (4.70-6.10) M/uL Hgb 11.0 L (14.0-18.0) g/dl Hct 29.8 L (42.0-52.0) % MCV 94.0 (80.0-100.0) fL MCH 34.7 H (25.0-34.0) pg MCHC 36.9 H (32.0-36.0) g/dL RDW Std Deviation 59.0 H (36.4-46.3) fL RDW Coeff of Rosalia 17.1 H (11.5-14.5) % Plt Count 167 (130-400) K/uL MPV 11.0 (9.4-12.4) fL Immature Gran % (Auto) 1.1 % Neut % (Auto) 86.7 % Lymph % (Auto) 3.5 % Bates % (Auto) 7.8 % Eos % (Auto) 0.3 % Baso % (Auto) 0.6 % Neut # (Auto) 12.17 H (1.40-6.50) K/uL Lymph # (Auto) 0.49 L (1.20-3.40) K/uL Bates # (Auto) 1.09 H (0.11-0.59) K/uL Eos # (Auto) 0.04 (0.00-0.50) K/uL Baso # (Auto) 0.08 (0.00-0.20) K/uL Immature Gran # (Auto) 0.16 (0.01-0.20) K/uL Polychromasia Target Cells PT 13.5 H (9.0-12.0) Seconds INR 1.3 H (0.9-1.1) VBG pH (7.36-7.41) VBG pCO2 (38-50) mmHg VBG pO2 mmHg VBG HCO3 mmol/L VBG O2 Saturation % VBG Base Excess mEq/L Sodium 114 L* (136-145) mmol/L Potassium 4.9 (3.5-5.1) mmol/L Chloride 84 L (98-107) mmol/L Carbon Dioxide 19 L (21-32) mmol/L Anion Gap 11 (3-11) BUN TNP Creatinine 2.82 H (0.6-1.4) mg/dl Est Cr Clr Drug Dosing 36.6 ml/min eGFR 26.10 BUN/Creatinine Ratio TNP Glucose 133 H (70-99(Fasting)) mg/dl POC Glucose 136 H (70-99) mg/dl Calcium 8.5 L (8.6-10.3) mg/dl Total Bilirubin 40.8 H (0.2-1.0) mg/dl Direct Bilirubin (0-0.2) mg/dl AST 212 H (13-39) U/L ALT 64 H (7-52) U/L Alkaline Phosphatase TNP Ammonia TNP Troponin I High Sens 40.7 H (0-20) pg/ml Total Protein 6.4 (6.0-8.3) gm/dl Albumin 3.3 L (3.4-5.0) gm/dl Globulin 3.1 (2.5-4.0) gm/dl Albumin/Globulin Ratio 1.1 (0.9-2) Lipase TNP Urine Color Urine Appearance (Clear) Urine pH Ur Specific [place] (1.000-1.030) Urine Protein Urine Glucose (UA) Urine Ketones Urine Blood Urine Nitrite Urine Bilirubin Urine Urobilinogen Ur Leukocyte Esterase Urine RBC (0-2) /hpf Urine WBC (0-5) /hpf Ur Epithelial Cells (0-2) /hpf Urine Bacteria (None Seen) Urine Osmolality Ur Random Sodium mmol/L Stool Occult Bld Scrn (Negative) Ethyl Alcohol mg/dL 171.4 H (<10.0) mg/dl Hepatitis A Ab Total Hep Bs Antigen (Negative) Hep Bs Antibody Hep Bs Antibody, Quant (>or=10mIU/mL Immune) mIU/mL Hep B Core IgM Ab Hepatitis C Antibody (Negative) Miscellaneous Test Pending Miscellaneous Test 2 Pending Ref Lab Test Result Diagnostic Findings Chest X-Ray 06/07/24 15:59 EXAM: XR chest 1V portable CLINICAL HISTORY: sob TECHNIQUE: An X-ray image of the chest is obtained in 1 AP projection. COMPARISON: No prior studies are available for comparison. FINDINGS: Pulmonary Parenchyma: No evidence of consolidation, collapse, or focal opacities. No pulmonary nodules are identified. No evidence of pleural effusion or pleural thickening. Heart and Mediastinum: Heart size and shape are normal. No mediastinal widening or masses. No hilar or mediastinal lymphadenopathy. Bony Thorax: Bony thorax appears intact without fractures or deformities. Osteodegenerative changes of visulaized shoulder joint Soft Tissues: Soft tissues overlying the chest wall are unremarkable. IMPRESSION: No acute cardiopulmonary findings. Electronically signed by Onur [place] 06-07-2024 5:34 PM Abdomen/Pelvis CT 06/07/24 17:14 EXAMINATION: CT of the abdomen and pelvis performed without contrast TECHNIQUE: Helical CT images from the lung bases through the symphysis pubis were obtained without contrast. Coronal and sagittal reformatted images were generated at a workstation for further assessment. Dose reduction techniques were achieved by using automatic exposure control and/or adjustment of mA and/or kV according to patient size and/or use of iterative reconstruction technique. COMPARISON: None HISTORY: Abdominal pain FINDINGS: Lower chest: There are moderate pleural effusions. Bibasilar atelectasis. Liver: A low-density focus measuring approximately 15 mm is seen at the dome of the liver on axial image 17. The liver appears enlarged and is markedly fatty infiltrated, measuring 24.2 cm craniocaudal. Gallbladder: A single small gallstone is seen. No evidence of acute cholecystitis. Spleen: Enlarged measuring 15.6 cm craniocaudal. Pancreas: No suspicious pancreatic lesions. The pancreatic duct is not dilated. Adrenal glands: No adrenal nodules. Kidneys: No hydronephrosis or obstructing renal stones. Bladder / Pelvic organs: Unremarkable. Bowel: No bowel obstruction. No abnormal bowel wall thickening. The appendix is unremarkable. Lymph nodes: No retroperitoneal, mesenteric, or pelvic lymphadenopathy. Peritoneum / Retroperitoneum: Moderate ascites. Vessels: No infrarenal aortic aneurysm. Bones and soft tissues: No suspicious lesion in the bones. Severe degenerative changes noted about the superior portions of the hips. IMPRESSION: Hepatomegaly and hepatic steatosis noted. Steatosis is severe, and the possibility of steatohepatitis is considered. Splenomegaly and moderate ascites as well as pleural effusions may be due to portal hypertension in the setting of intrinsic liver disease, such as cirrhosis or fibrosis. There is an ill-defined low-density lesion in the liver measuring 15 mm, which is indeterminate. Recommend follow-up MRI. Electronically signed by Noel Ortiz 06-07-2024 6:19 PM
[2024-06-08] MEDS: SPIRONOLACTONE 100 MG TAB PO SCH (11:14)
[2024-06-08 13:20] LABS: Anion Gap 10 (3-11); Calcium 8.4 mg/dl (8.6-10.3); Carbon Dioxide 18 mmol/L (21-32); Chloride 89 mmol/L (98-107); Glucose 120 mg/dl (70-99(Fasting)); Potassium 4.7 mmol/L (3.5-5.1); Sodium 117 mmol/L (136-145)
[2024-06-08 14:11] LABS: Basophils # (auto) 0.06 K/uL (0.00-0.20); Basophils % (auto) 0.5 %; Eosinophils # (auto) 0.03 K/uL (0.00-0.50); Eosinophils % (auto) 0.3 %; Hematocrit (blood only) 26.5 % (42.0-52.0); Immature Granulocytes # (auto) 0.19 K/uL (0.01-0.20); Immature Granulocytes % (auto) 1.6 %; Lymphocytes # (auto) 0.36 K/uL (1.20-3.40); Mean Corpuscular Hemoglobin 34.5 pg (25.0-34.0); Mean Corpuscular Hgb Conc 37.7 g/dL (32.0-36.0); Mean Corpuscular Volume 91.4 fL (80.0-100.0); Mean Platelet Volume 10.7 fL (9.4-12.4); Monocytes # (auto) 1.16 K/uL (0.11-0.59); Monocytes % (auto) 9.8 %; Neutrophils # (auto) 10.06 K/uL (1.40-6.50); Neutrophils % (auto) 84.8 %; Pappenheimer Bodies 1+; Platelet Count 135 K/uL (130-400); Polychromasia 2+; RDW Coefficient of Variation 16.5 % (11.5-14.5); RDW Standard Deviation 54.4 fL (36.4-46.3); Target Cells 1+; White Blood Count 13.15 K/ul (4.8-10.8)
--- NOTE | 2024-06-08 14:41 | Magnetic Resonance Report ---
MR abdomen wo con CLINICAL HISTORY: lesion on CT scan COMPARISON STUDY: CT scan yesterday FINDINGS: There is extensive motion artifact and IV contrast was not utilized. The exam is nondiagnos tic to evaluate for potential focal liver lesion. Liver contour is nodular, there is splenomegaly, and there is mild ascites suggesting cirrhosis and p ortal hypertension. There are also bilateral pleural effusions. Gallbladder is distended. IMPRESSION: Since the patient could not tolerate MRI without significant motion, suggest follow-up C T scan with multiphase pre and postcontrast liver protocol. ACT 112: Negative or not required by law. Electronically signed by: Sav Jain M.D. 06/08/2024 2:39 PM
[2024-06-08 16:59] LABS: Anion Gap 10 (3-11); Calcium 8.3 mg/dl (8.6-10.3); Carbon Dioxide 17 mmol/L (21-32); Chloride 90 mmol/L (98-107); Glucose 130 mg/dl (70-99(Fasting)); Potassium 4.7 mmol/L (3.5-5.1); Sodium 117 mmol/L (136-145)
--- NOTE | 2024-06-08 17:59 | Hospitalist Progress Note ---
Date of Service June 08, 2024 Assessment & Plan (1) Alcoholic hepatitis with ascites: (2) Jaundice: (3) Alcohol use disorder, severe, dependence: (4) Hyponatremia: (5) Transaminitis: (6) Elevated serum creatinine: (7) Elevated troponin: Plan 53 yo male PMHx T2DM, HTN, GERD admitted for progressive jaundice. #Acute Alcoholic Hepatitis - MELD Score: 38 - Significant Ascites and Edema -> spironolactone to diurese - CT demonstrates liver lesion, patient could not tolerate MRI, obtain AFP level, otherwise obtain paracentesis w/ cytology - continue daily thiamine and folate - Ammonia pending, continue lactulose - Coags with mild elevation #Alcohol Withdrawal/EtOH Use Disorder - AWSS protocol with IV lorazepam - If patient experiences severe w/d would recommend ICU status with phenobarbital or chlordiazepoxide #Hyponatremia - In setting of poor solute intake, beer-potomania - asymptomatic, but Na of 117, that is slowly correcting - Salt tab BID - Monitor chemistries #Troponin elevation - troponin of 40.7 - Likely 2/2 metabolic demand - echo showed normal cardiac function, LV EF of 60-65% #Anemia - positive stool occult blood - Hgb 11 -> 9g/dL - repeat CBC to check Hgb - consider colonoscopy once acute issues resolve #Leukocytosis No febrile illness Daily CBC Admission and Anticipated Discharge Date Admission Date: June 07, 2024 Supervising Physician Co-Signing Physician Notes I personally examined the patient and verified all brown points of history and exam, discussed case, and agree with decision making with Dr Lo and Yasmine Umana MS4 Feeling okay. Abdomen distended. Shaky, but does not appear to be any worse than this morning. Feels like the alcohol was just a habit he picked up in college and never stopped. Denies drinking to self medicate for anxiety or depression. Vitals noted, in general he is awake and alert pleasant fatigued but appears to be in no distress. Mildly tremulous, not diaphoretic. Heart rate mildly up. No confusion. Markedly jaundiced. Acute alcoholic hepatitis with jaundice, concern for cirrhosis - Follow labs. Bilirubin quite concerning, fortunately INR is only mildly elevatedhopefully a lot of this is due to acute alcoholic hepatitis and liver swelling with intrahepatic cholestasis, but obviously major concern on acute liver decompensation. Continue to monitor closely in the hospital. Agree with GI that the benefit of corticosteroids despite his Madrey score is questionable at best, and given that there is not a clear benefit, the risk of steroids worsening mental state given that he is already in a degree of alcohol withdrawal, as well as making his glycemic control more difficult seems to outweigh the benefit. Continue to follow closely. Alcohol Abuse with acute withdrawal - continue thiamine and folate. Fortunately withdrawal still seems fairly mildat this point continue with symptom triggered therapy. Hyponatremia - Fluid overload, polydipsia with poor solute intake, probably a degree of unfortunate ADH mediated due to poor forward flow with a lot of his fluid being sequestered on the venous side of circulation. Mental status intact and not seizing, sodium slowly improving. Follow with p.o. intake and salt tabs, follow as we gently adjust diuretics. Can use additional hypertonic saline if needed, but would move slowly to avoid overcorrection. question of liver lesioncytology on paracentesis fluid, if this is nondiagnostic, can consider biopsy of the area in question if reachable. JARAD in the setting of above - Diuretics with caution given risk of hepatorenal syndrome. Follow closely Leukocytosis without febrile illness - likely stress response from the acute alcoholic hepatitis. Continue to follow DMII - hold jardiance, losartan 2/2 JARAD, glucose control is acceptable blood in stool - no overt s/s GI hemorrhage - agree w GI outpt colo at this point unless situation changes; follow clinically/follow Hgb Else see resident documentation as noted. DVT proph - start heparin SQ (follow blood in stool - but with largely swollen abdomen and reduced venous return due to intraabdominal pressure, risk of VTE seems to outweigh risk of amplifying what seems to be nominal bleeding at this time) Subjective Patient appears ill, but mentions feeling fine. Patient mentions feeling tr emulous and jittery. He denies hallucinations. He reports little to no appetite. Review of Systems Review of Systems: All systems reviewed & are unremarkable except as noted in HPI & below Physical Exam Physical Exam: Constitutional: ill appearing, tremulous, NAD HEENT: +scleral icterus CV: regular rhythm, tachycardc, no murmur appreciated, extremities well- perfused, 2+ pitting edema bilaterally Resp: CTABL, no wheezes/rales/rhonchi appreciated, no increased work of breathing GI: Distended, no tenderness to palpation MSK: no gross deformities appreciated Skin: +jaundice Neuro: alert, oriented, no focal neurologic deficit appreciated Results & Data Results & Data Vital Signs (Past 12 Hours) Vital Signs Temp Pulse Pulse Resp BP BP Pulse Ox 06/08/24 07:22 36.3 C L 111 H 20 146/81 H 94 06/08/24 04:14 36.5 C 100 H 18 148/55 H 97 06/07/24 22:52 96 H 06/07/24 22:45 36.6 C 96 H 18 117/70 97 06/07/24 22:31 98 H 17 131/70 97 06/07/24 21:30 95 H 18 116/63 97 O2 Del Method 06/08/24 07:22 Room Air 06/08/24 04:14 Room Air 06/07/24 22:52 06/07/24 22:45 Room Air 06/07/24 22:31 Room Air 06/07/24 21:30 Room Air
--- NOTE | 2024-06-08 18:35 | Billing Data ---
Date of Service June 08, 2024 Coding Level of Care Code 52839 SUB INP/OBS CARE MIN
[2024-06-08] MEDS: HEPARIN SOD 5,000 UNIT/0.5 ML VIAL SQ SCH (20:49)
[2024-06-08] MEDS: SODIUM CHLORIDE 1 GM TABLET PO SCH (20:50)
[2024-06-08 20:55] LABS: Anion Gap 8 (3-11); Calcium 8.3 mg/dl (8.6-10.3); Carbon Dioxide 19 mmol/L (21-32); Chloride 91 mmol/L (98-107); Creatinine Clr Calc Pharmacy 64.3 ml/min; Glucose 118 mg/dl (70-99(Fasting)); Potassium 4.6 mmol/L (3.5-5.1); Sodium 118 mmol/L (136-145)
[2024-06-08] MEDS: LORazepam 2 MG/1 ML VIAL IV PRN (21:00)
[2024-06-09 06:56] LABS: Base Excess VBG -5.5 mEq/L; HCO3 VBG 18 mmol/L; Oxygen Saturation VBG 94.4 %; PCO2 VBG 27 mmHg (38-50); PO2 VBG 63 mmHg; pH VBG 7.42 (7.36-7.41)
[2024-06-09 07:04] LABS: Basophils # (auto) 0.08 K/uL (0.00-0.20); Basophils % (auto) 0.7 %; Eosinophils # (auto) 0.09 K/uL (0.00-0.50); Eosinophils % (auto) 0.8 %; Hematocrit (blood only) 24.1 % (42.0-52.0); Immature Granulocytes % (auto) 1.8 %; Lymphocytes # (auto) 0.48 K/uL (1.20-3.40); Lymphocytes % (auto) 4.3 %; Mean Corpuscular Hemoglobin 34.9 pg (25.0-34.0); Mean Corpuscular Hgb Conc 37.3 g/dL (32.0-36.0); Mean Corpuscular Volume 93.4 fL (80.0-100.0); Mean Platelet Volume 10.7 fL (9.4-12.4); Monocytes # (auto) 1.09 K/uL (0.11-0.59); Monocytes % (auto) 9.7 %; Neutrophils # (auto) 9.31 K/uL (1.40-6.50); Neutrophils % (auto) 82.7 %; Platelet Count 145 K/uL (130-400); RDW Coefficient of Variation 17.2 % (11.5-14.5); RDW Standard Deviation 58.3 fL (36.4-46.3); Red Blood Count 2.58 M/uL (4.70-6.10); White Blood Count 11.25 K/ul (4.8-10.8)
[2024-06-09 07:29] LABS: INR 1.4 (0.9-1.1); Prothrombin Time 14.7 Seconds (9.0-12.0)
[2024-06-09 08:06] LABS: Alanine Aminotransferase 55 U/L (7-52); Albumin Globulin Ratio 1.2 (0.9-2); Albumin Level 2.8 gm/dl (3.4-5.0); Anion Gap 7 (3-11); Aspartate Aminotransferase 160 U/L (13-39); Blood Urea Nitrogen 49 mg/dl (6-23); Carbon Dioxide 20 mmol/L (21-32); Chloride 92 mmol/L (98-107); Creatinine Clr Calc Pharmacy 70.1 ml/min; Globulin 2.4 gm/dl (2.5-4.0); Glucose 129 mg/dl (70-99(Fasting)); Potassium 4.7 mmol/L (3.5-5.1); Sodium 119 mmol/L (136-145); Total Protein 5.2 gm/dl (6.0-8.3)
[2024-06-09 08:07] LABS: BUN Creatinine Ratio 27.7 (10-20)
--- NOTE | 2024-06-09 11:35 | Hospitalist Progress Note ---
Date of Service June 09, 2024 Assessment & Plan (1) Alcoholic hepatitis with ascites: (2) Jaundice: (3) Alcohol use disorder, severe, dependence: (4) Hyponatremia: (5) Transaminitis: (6) Elevated serum creatinine: (7) Elevated troponin: Plan 53 yo male PMHx T2DM, HTN, GERD admitted for progressive jaundice. #Alcohol Withdrawal/EtOH Use Disorder - AWSS protocol with IV lorazepam - If patient experiences severe w/d would recommend ICU status with phenobarbital or chlordiazepoxide - reassess withdrawal symptoms once Ativan wears off - Ammonia pending, continue lactulose - consider NG tube to ensure adequate lactulose intake - continue daily thiamine and folate - VBG pH 7.42, VBG CO2 27 L #Acute Alcoholic Hepatitis - MELD Score: 38 - INR 1.4 - significant ascites and edema -> spironolactone to diurese - monitor renal function, Cr 1.77, BUN/Cr 27.7 - paracentesis to reduce abdominal pressure #Hyponatremia - In setting of poor solute intake, beer-potomania - asymptomatic, but Na of 119, that is slowly correcting - Salt tab BID - Monitor chemistries #Hepatic Mass - CT demonstrates liver lesion, patient could not tolerate MRI - paracentesis w/ cytology - AFP level - otherwise, liver biopsy of the mass #Anemia - positive stool occult blood - Hgb 11 -> 9g/dL - repeat CBC to check Hgb - presence of bright red rectal bleeding - consider colonoscopy once acute issues resolve #Troponin elevation - troponin of 40.7 - Likely 2/2 metabolic demand - echo showed normal cardiac function, LV EF of 60-65% Admission and Anticipated Discharge Date Admission Date: June 07, 2024 Supervising Physician Co-Signing Physician Notes I personally examined the patient and verified all brown points of history and exam, discussed case, and agree with decision making with Dr Lo and Yasmine Umana MS4 harder to wake up today - signout from overnight - was having more withdrawal through the night, had some hallucinations, required more ativan. after physical and prolonged verbal stim finally awakens, able to say he's in the hospital and that he came in on [place] (was Easter) and denies complaints, but quickly falls off to sleep again Vitals noted, asleep and awakens after both physical and the prolonged verbal stim - then still easily confused/falls off to sleep again. when i walked past his room ~9a he was mildly tremulous even asleep, when physically in his room (~11a) not tremulous. no focal neuro deficits. markedly jaundiced. abd distended. Acute alcoholic hepatitis with jaundice, concern for cirrhosis - continue to follow labs. Bilirubin quite concerning, fortunately INR is only mildly elevatedhopefully a lot of this is due to acute alcoholic hepatitis and liver swelling with intrahepatic cholestasis, but obviously major concern on acute liver decompensation. Continue to monitor closely in the hospital. Agree with GI that the benefit of corticosteroids despite his Madrey score is questionable at best, and given that there is not a clear benefit, the risk of steroids worsening mental state given that he is already in a degree of alcohol withdrawal, as well as making his glycemic control more difficult seems to outweigh the benefit. Continue to follow closely.Essentially no major changes in this problem today. Altered mental statusmost likely due to alcohol withdrawal and/or side effect of Ativan; at the same time hard to rule out elements of hepatic encephalopathy given how dysfunctional his liver is, and while I doubt pathology such as SBP, it certainly on the differential. Continue to follow with serial exams, follow benzodiazepine requirementsif it continues to seem that his sedation is disproportionate to the benzodiazepines, will increase lactulose (and perhaps give via NG tube if he is not able to take p.o.); and no significant leukocytosis, I do not see a compelling need for empiric antibiotic coverageespecially given that he will be having a paracentesis later today. Obviously should he have a fever or his white count rise, or if his peritoneal fluid suggests peritonitis then we will start antibiotics. Highly doubt it relates to his hyponatremia given that his mental status was better yesterday in spite of a lower sodium. Alcohol Abuse with acute withdrawal - continue thiamine and folate. Fortunately withdrawal still seems fairly mildat this point continue with symptom triggered therapy. Hyponatremia - Fluid overload, polydipsia with poor solute intake, probably a degree of unfortunate ADH mediated due to poor forward flow with a lot of his fluid being sequestered on the venous side of circulation. Mental status was intact yesterday, and had no seizures, suggesting the low sodium was relatively asymptomatic, sodium still slowly improving. Follow with p.o. intake and salt tabs, follow as we gently adjust diuretics. Can use additional hypertonic saline if needed, but would move slowly to avoid overcorrection. PO intake as day progresses, as well as rate of change through today, will both dictate next steps - but for now his current slow rate of ongoing correciton is preferred. question of liver lesioncytology on paracentesis fluid, if this is n ondiagnostic, can consider biopsy of the area in question if reachable. JARAD in the setting of above - Diuretics with caution given risk of hepatorenal syndrome. Follow closely - improved Leukocytosis without febrile illness - likely stress response from the acute alcoholic hepatitis. was mild yesterday and upper limits of normal today; see above - right now no compelling reason for empiric abx but low threshold to start SBP coverage - at this point given overall no septic physiology will wait on paracentesis later today DMII - hold jardiance, losartan 2/2 JARAD, glucose control is acceptable blood in stool - no overt s/s GI hemorrhage - agree w GI outpt colo at this point unless situation changes; follow clinically/follow Hgb; slightly increased today - will hold SQ heparin tonight Else see resident documentation as noted. DVT proph - heparin SQ (follow blood in stool - but with largely swollen abdomen and reduced venous return due to intraabdominal pressure, risk of VTE reasonably high - givne slight increase in bleed today will hold PM dose - but will continue to weigh risk/benefit [id number]) seen in f/u ~4p - more responsive but still quite disoriented, less tremulous para fluid noted - given AMS and high WBC starting empiric abx for potential peritonitis - gómez given worsening ARF. % neutrophils pending - and if these are exceedingly low can consider d/c abx - but with worsening clinical picture, his margin of error is low. with poor PO intake and Cr rising some - despite possibility that it may hasten accumulation of ascites - need to maintain perfusion - starting IV fluids; because of concern on working towards hepatorenal - giving albumin f/u BMP from ~5p noted - starting octreotide and midodrine given ongoing rise in creatinine (not large rise, but moving up slowly and BP remains lower end) Subjective Patient is resting comfortably in bed, and wakes up momentarily. He is aware he is in the hospital and mentions he's been here since [place]. Nurse mentions patient is calm when given dose of Ativan, but is otherwise tremulous, jittery, and hallucinating despite denying this. Nurse also notes bright red blood from rectum and possible hemorrhoids when changing sheets. Review of Systems Review of Systems: Unobtainable due to cognitive status (+ rectal bleeding) Physical Exam Constitutional: + ill appearing and + lethargic Eyes: reactive pupils +scleral icterus Respiratory: normal respiratory effort Gastrointestinal (Abdomen): Inspection/Auscultation: + abdomen distended and + abdominal edema Skin: + jaundice Neurologic: Motor/Sensory: + tremor Results & Data Results & Data Vital Signs (Past 12 Hours) Vital Signs Temp Pulse Resp BP Pulse Ox O2 Del Method 06/09/24 07:00 36.6 C 97 H 16 109/68 93 Room Air 06/09/24 02:39 36.6 C 105 H 18 151/78 H 98 Room Air 06/08/24 22:45 36.6 C 103 H 18 122/80 96 Room Air
--- NOTE | 2024-06-09 12:26 | Billing Data ---
Date of Service June 09, 2024 Coding Level of Care Code 64588 SUB INP/OBS CARE
[2024-06-09 13:13] LABS: Anion Gap 7 (3-11); Carbon Dioxide 19 mmol/L (21-32); Chloride 93 mmol/L (98-107); Creatinine Clr Calc Pharmacy 55.9 ml/min; Glucose 131 mg/dl (70-99(Fasting)); Sodium 119 mmol/L (136-145)
[2024-06-09 13:51] LABS: Hepatitis A Antibody Total REACTIVE (NON-REACTIVE); Hepatitis B Core Antibody IgM NON-REACTIVE (NON-REACTIVE)
--- NOTE | 2024-06-09 15:03 | XRay Report ---
K[place] HISTORY: Coresafe placement COMPARISON STUDY: 06/07/2024 FINDINGS: Feeding tube tip is at the distal aspect of the stomach. IMPRESSION: Feeding tube tip is in the distal stomach. ACT 112: Negative or not required by law. The above report was generated using voice recognition software. It may contain grammatical, syntax o r spelling errors. Electronically signed by: Sav Jain M.D. 06/09/2024 3:02 PM
[2024-06-09 15:12] LABS: Reference Quest Test 1 REPORT; Reference Quest Test 2 REPORT
--- NOTE | 2024-06-09 15:18 | Ultrasound Report ---
ULTRASOUND GUIDED PARACENTESIS CLINICAL HISTORY: Ascites, liver lesion, acute EtOH hepatitis COMPARISON STUDY: None PROCEDURE: The risks, benefits, and alternatives to the procedure were discussed with the patient inc luding the risk of bleeding, infection and injury to adjacent structures. The patient agreed to the procedure and informed written consent was obtained. Following real-time ultrasound localization, the skin was prepped and draped. Following local anesthesia with Xylocaine, the sheath paracentesis need le was inserted and approximately 1.5 liters of straw-colored fluid was removed by vacuum suction. The patient tolerated the procedure well and no immediate complications were evident. IMPRESSION: Ultrasound-guided paracentesis with removal of 1.5 liters of ascites. ACT 112: Negative or not required by law. Electronically signed by: Sav Jain M.D. 06/09/2024 3:17 PM
[2024-06-09 15:59] LABS: Albumin Peritoneal Fluid < 1.5 gm/dl; Total Protein Peritoneal Fluid < 3.0 gm/dl
[2024-06-09 16:47] LABS: Appearance Peritoneal Fluid Slightly Hazy; Color Peritoneal Fluid Yellow; RBC Peritoneal Fluid Auto < 2000 /uL; WBC Peritoneal Fluid Auto 983 /ul (0-300)
[2024-06-09] MEDS: LACTATED RINGER'S 1,000 ML IV SCH (16:55)
[2024-06-09] MEDS: LACTULOSE SYRUP 30 GM/45 ML UDP PO SCH ×2 (16:56→22:02)
[2024-06-09] MEDS: ALBUMIN 25% 25 GM/100 ML VIAL IV ONE (16:56)
[2024-06-09 17:12] LABS: Hemoglobin 8.9 g/dl (14.0-18.0); Mean Corpuscular Hemoglobin 35.2 pg (25.0-34.0); Mean Corpuscular Hgb Conc 37.1 g/dL (32.0-36.0); Mean Corpuscular Volume 94.9 fL (80.0-100.0); Mean Platelet Volume 10.9 fL (9.4-12.4); Nucleated RBC # (auto) 0.03 K/uL (0.00-0.12); Nucleated RBC % (auto) 0.3 %; Platelet Count 163 K/uL (130-400); RDW Coefficient of Variation 17.7 % (11.5-14.5); RDW Standard Deviation 60.1 fL (36.4-46.3); Red Blood Count 2.53 M/uL (4.70-6.10); White Blood Count 11.32 K/ul (4.8-10.8)
[2024-06-09 17:29] LABS: Anion Gap 8 (3-11); Carbon Dioxide 17 mmol/L (21-32); Chloride 94 mmol/L (98-107); Potassium 5.2 mmol/L (3.5-5.1); Sodium 119 mmol/L (136-145)
[2024-06-09 17:38] LABS: Creatinine Clr Calc Pharmacy 51.5 ml/min; Glucose 137 mg/dl (70-99(Fasting))
[2024-06-09] MEDS ORDERED: STAT IV/IM STA (19:21)
--- NOTE | 2024-06-09 19:26 | Billing Data ---
Date of Service June 09, 2024 Coding Level of Care Code 80769 CRITICAL CARE
[2024-06-09] MEDS: cefTRIAXone SODIUM 2,000 MG/50 ML BAG IV SCH (19:48)
[2024-06-09] MEDS: ALBUMIN 25% 12.5 GM/50 ML VIAL IV SCH (19:53)
[2024-06-09] MEDS: OCTREOTIDE ACETATE 500 MCG in SODIUM CHLORIDE 0.9% 100 ML IV SCH (20:12)
[2024-06-09] MEDS: MIDODRINE HCL 10 MG TAB PO SCH (22:02)
[2024-06-09 22:53] LABS: Hemoglobin 8.1 g/dl (14.0-18.0)
[2024-06-09 23:10] LABS: Anion Gap 8 (3-11); Calcium 7.9 mg/dl (8.6-10.3); Carbon Dioxide 18 mmol/L (21-32); Chloride 95 mmol/L (98-107); Glucose 128 mg/dl (70-99(Fasting)); Potassium 5.1 mmol/L (3.5-5.1); Sodium 121 mmol/L (136-145)
[2024-06-10 02:23] LABS: Calcium 7.9 mg/dl (8.6-10.3); Creatinine Clr Calc Pharmacy 44.5 ml/min; Potassium 4.9 mmol/L (3.5-5.1)
[2024-06-10 02:47] LABS: BUN Creatinine Ratio 25.8 (10-20)
[2024-06-10 07:09] LABS: Lymphocytes, Fluid 5 %; Mono,Macrophage,Mesothelial 34 %; Neutrophils, Fluid 61 %
[2024-06-10 07:16] LABS: Basophils # (auto) 0.16 K/uL (0.00-0.20); Basophils % (auto) 1.3 %; Eosinophils # (auto) 0.24 K/uL (0.00-0.50); Hematocrit (blood only) 23.1 % (42.0-52.0); Hemoglobin 8.4 g/dl (14.0-18.0); Immature Granulocytes # (auto) 0.52 K/uL (0.01-0.20); Immature Granulocytes % (auto) 4.3 %; Lymphocytes # (auto) 0.95 K/uL (1.20-3.40); Lymphocytes % (auto) 7.8 %; Mean Corpuscular Hgb Conc 36.4 g/dL (32.0-36.0); Mean Corpuscular Volume 96.3 fL (80.0-100.0); Mean Platelet Volume 11.1 fL (9.4-12.4); Monocytes # (auto) 1.52 K/uL (0.11-0.59); Monocytes % (auto) 12.5 %; Neutrophils # (auto) 8.77 K/uL (1.40-6.50); Neutrophils % (auto) 72.1 %; Nucleated RBC # (auto) 0.02 K/uL (0.00-0.12); Nucleated RBC % (auto) 0.2 %; Platelet Count 195 K/uL (130-400); RDW Coefficient of Variation 18.3 % (11.5-14.5); RDW Standard Deviation 63.7 fL (36.4-46.3); White Blood Count 12.16 K/ul (4.8-10.8)
[2024-06-10 07:32] LABS: Alanine Aminotransferase 52 U/L (7-52); Albumin Globulin Ratio 1.3 (0.9-2); Albumin Level 2.9 gm/dl (3.4-5.0); Anion Gap 8 (3-11); Aspartate Aminotransferase 154 U/L (13-39); Carbon Dioxide 19 mmol/L (21-32); Chloride 96 mmol/L (98-107); Creatinine Clr Calc Pharmacy 42.9 ml/min; Globulin 2.3 gm/dl (2.5-4.0); Glucose 123 mg/dl (70-99(Fasting)); Potassium 5.2 mmol/L (3.5-5.1); Sodium 123 mmol/L (136-145); Total Protein 5.2 gm/dl (6.0-8.3)
[2024-06-10 07:35] LABS: Bilirubin,Total 37.5 mg/dl (0.2-1.0)
[2024-06-10 08:09] LABS: Blood Urea Nitrogen 74 mg/dl (6-23)
[2024-06-10 08:10] LABS: BUN Creatinine Ratio 25.7 (10-20)
[2024-06-10 08:27] LABS: INR 1.4 (0.9-1.1); Prothrombin Time 14.7 Seconds (9.0-12.0)
--- NOTE | 2024-06-10 10:37 | Electrocardiogram Report ---
Test Reason : Blood Pressure : */* mmHG Vent. Rate : 102 BPM Atrial Rate : 102 BPM P-R Int : 172 ms QRS Dur : 100 ms QT Int : 352 ms P-R-T Axes : 61 29 70 degrees QTcB Int : 458 ms Sinus tachycardia Otherwise normal ECG When compared with ECG of 07-Jun-2024 15:49, No significant change was found Confirmed by Earl Atwood [id number]) on 06/10/2024 10:36:51 AM Referred By: REFERRED SELF Confirmed By: Earl Atwood
[2024-06-10 10:39] LABS: Anion Gap 8 (3-11); Calcium 8.1 mg/dl (8.6-10.3); Carbon Dioxide 19 mmol/L (21-32); Chloride 96 mmol/L (98-107); Creatinine Clr Calc Pharmacy 44.8 ml/min; Glucose 125 mg/dl (70-99(Fasting)); Potassium 4.8 mmol/L (3.5-5.1); Sodium 123 mmol/L (136-145)
[2024-06-10] MEDS: SODIUM ZIRCONIUM CYCLOSILICATE 10 GM PACKET PO SCH (12:57)
--- NOTE | 2024-06-10 13:58 | Hospitalist Progress Note ---
Date of Service June 10, 2024 Assessment & Plan (1) Spontaneous bacterial peritonitis: (2) Hepatorenal syndrome: (3) Alcoholic hepatitis with ascites: (4) Alcohol use disorder, severe, dependence: (5) Hyponatremia: Plan 53 yo male PMHx T2DM, HTN, GERD and severe alcohol use disorder admitted for progressive jaundice secondary to hyperbilirubinemia and acute alcoholic hepatitis. #Spontaneous Bacterial Peritonitis - meets SIRS criteria (HR, WBC) - WBC paracentesis 983, with 61% (neutrophil count ~600) - continue treating w/ IV ceftriaxone 2000 mg #Hepatorenal Syndrome - Cr of 2.76 - continue treating with midodrine + octreotide - continue IV albumin - continue to hold diuretics #Hepatic Encephalopathy - NG tube in place - continue lactulose - still pending ammonia levels #Hyperkalemia - K+ on admission 4.9 -> 5.2 -> 4.8 on 06/10 - ECG shows no peaked T waves, unchanged from admission ECG - continue to monitor for changes in ECG - begin Lokelma 10gm PO daily #Alcohol Withdrawal/EtOH Use Disorder - ~72 hours post last drink - discontinued IV lorazepam d/t hepatic encephalopathy - continue daily thiamine and folate - VBG pH 7.42, VBG CO2 27 L #Acute Alcoholic Hepatitis - MELD Score: 36 - INR 1.4 - significant ascites and edema - monitor renal function, Cr 2.76 - paracentesis to reduce abdominal pressure #Hyponatremia - In setting of poor solute intake, beer-potomania - asymptomatic, but Na of 123, that is slowly correcting - Salt tab BID - Monitor chemistries #Hepatic Mass - CT demonstrates liver lesion, patient could not tolerate MRI - paracentesis w/ cytology - pending AFP level - otherwise, liver biopsy of the mass #Anemia - positive stool occult blood - Hgb 11 -> 9g/dL -> 8.4 - repeat CBC to check Hgb - presence of bright red rectal bleeding - consider colonoscopy once acute issues resolve #Troponin elevation - troponin of 40.7 - Likely 2/2 metabolic demand - echo showed normal cardiac function, LV EF of 60-65% Admission and Anticipated Discharge Date Admission Date: June 07, 2024 Supervising Physician Co-Signing Physician Notes I personally examined the patient and verified all brown points of history and exam, discussed case, and agree with decision making with Dr Lo and Yasmine Umana MS4 not waking up much today. family present at the bedside, updated to the best of my ability and their satisfaction. Vitals noted, Somnolent. Not tremulous. Markedly jaundiced. Breathing unlabored no accessory muscle use good effort. Acute alcoholic hepatitis with jaundice, concern for cirrhosis - continue to follow labs. Bilirubin quite concerning, fortunately INR is only mildly elevatedat the same time his mentation worsening and rising creatinine/lowering BP yesterday was quite concerning for developing hepatorenal syndrome/fulminant hepatic failure - because of this we started midodrine, octreotide, albumin. Cr has leveled at least for now, BP better. follow closely, adjust as needed, situation quite concerning. Altered mental statusprobably multifactorial - EtOH withdrawal, liver nikolas lure, hepatic encephalopathy --> using lactulose (can't get ammonia level due to icteric blood) - but wanting to avoid titrating to too much diarrhea that could potentially worsen volume status in potentially burdgeoning hepatorenal syndrome. continue to follow mental status, adjust lactulose as needed, supportive care (if doesn't wake up enough in next 1-2 days will need to consider best nutrition choices given his situation) Alcohol Abuse with acute withdrawal - continue thiamine and folate. somnolent and encephalopathic, but no overt withdrawal Hyponatremia - Fluid overload, polydipsia with poor solute intake, probably a degree of unfortunate ADH mediated due to poor forward flow with a lot of his fluid being sequestered on the venous side of circulation. IV fluids w LR to support circulation and gently correct Na has been affecting good, slow, steady progress question of liver lesioncytology on paracentesis fluid, if this is nondiagnostic, can consider biopsy of the area in question if reachable. JARAD in the setting of above - worrisome for developing hepatorenal syndrome - now on octreotide, midodrine, albumin SBP - on ceftriaxone. it's possible that all the findings concerning for hepatorenal are "just" due to septic physiology from this, but ahve to manage as though it's true hepatorenal DMII - hold jardiance, losartan 2/2 JARAD, glucose control is acceptable blood in stool - no overt s/s GI hemorrhage - agree w GI outpt colo at this point unless situation changes; follow clinically/follow Hgb; holding SQ heparin for now Else see resident documentation as noted. DVT proph - heparin SQ as possible/as tolerated (having to hold due to blood in stool) Subjective Patient is resting comfortably in bed, but is arousable and in NAD. When asked how he is doing, he mentions he is doing good. Mother and sister present at bedside. Physical Exam Physical Exam: Constitutional: ill appearing, tremulous, NAD HEENT: +scleral icterus CV: regular rhythm, tachycardic, no murmur appreciated, extremities well-per fused, 2+ pitting edema bilaterally Resp: CTABL, no wheezes/rales/rhonchi appreciated, no increased work of breathing GI: Distended, no tenderness to palpation MSK: no gross deformities appreciated Skin: +jaundice Neuro: limited neuro exam but arousable Results & Data Results & Data Vital Signs (Past 12 Hours) Vital Signs Temp Pulse Resp BP Pulse Ox O2 Del Method 06/10/24 12:56 36.6 C 99 H 18 130/78 98 Room Air 06/10/24 10:40 36.9 C 122 H 22 130/72 96 Room Air 06/10/24 06:59 36.6 C 103 H 19 125/80 96 Room Air 06/10/24 02:41 36.6 C 103 H 20 122/78 96 Room Air
--- NOTE | 2024-06-10 15:41 | Gastroenterology Progress Note ---
Date of Service June 10, 2024 Assessment & Plan (1) Alcoholic hepatitis with ascites: Plan: Slowly recovering. It will take time. There is not much I can offer at this point. Would follow H/H. Will follow from a distance Admission and Anticipated Discharge Date Admission Date: June 07, 2024 Subjective Says he feels okay. A little slow to respond. Paracentesis fluid suggestive of SBP Physical Exam Constitutional: + ill appearing Results & Data Vital Signs (Past 12 Hours) Vital Signs Temp Pulse Resp BP Pulse Ox O2 Del Method 06/10/24 14:50 98 H 18 129/77 97 Room Air 06/10/24 12:56 36.6 C 99 H 18 130/78 98 Room Air 06/10/24 10:40 36.9 C 122 H 22 130/72 96 Room Air 06/10/24 06:59 36.6 C 103 H 19 125/80 96 Room Air
--- NOTE | 2024-06-10 15:54 | Billing Data ---
Date of Service June 10, 2024 Coding Level of Care Code 35322 SUB INP/OBS CARE
[2024-06-10] MEDS: TUBE FEEDING WATER FLUSH NG SCH (18:42)
[2024-06-10 19:03] LABS: Anion Gap 10 (3-11); Calcium 8.2 mg/dl (8.6-10.3); Carbon Dioxide 18 mmol/L (21-32); Chloride 97 mmol/L (98-107); Creatinine Clr Calc Pharmacy 48.1 ml/min; Glucose 136 mg/dl (70-99(Fasting)); Potassium 4.5 mmol/L (3.5-5.1); Sodium 125 mmol/L (136-145)
[2024-06-10] MEDS: PEPTAMEN 1.5 CAL 1,000 ML BAG NG SCH (21:24)
[2024-06-11 00:20] LABS: Calcium 8.2 mg/dl (8.6-10.3); Creatinine Clr Calc Pharmacy 46.6 ml/min; Potassium 4.5 mmol/L (3.5-5.1)
[2024-06-11 00:21] LABS: BUN Creatinine Ratio 28.6 (10-20)
[2024-06-11 04:58] LABS: Basophils # (auto) 0.19 K/uL (0.00-0.20); Basophils % (auto) 1.6 %; Eosinophils % (auto) 2.5 %; Hematocrit (blood only) 22.1 % (42.0-52.0); Hemoglobin 7.9 g/dl (14.0-18.0); Immature Granulocytes # (auto) 0.58 K/uL (0.01-0.20); Immature Granulocytes % (auto) 4.8 %; Lymphocytes # (auto) 0.95 K/uL (1.20-3.40); Lymphocytes % (auto) 7.8 %; Mean Corpuscular Hemoglobin 35.1 pg (25.0-34.0); Mean Corpuscular Hgb Conc 35.7 g/dL (32.0-36.0); Mean Corpuscular Volume 98.2 fL (80.0-100.0); Mean Platelet Volume 10.3 fL (9.4-12.4); Monocytes # (auto) 1.73 K/uL (0.11-0.59); Monocytes % (auto) 14.3 %; Neutrophils # (auto) 8.38 K/uL (1.40-6.50); Nucleated RBC # (auto) 0.02 K/uL (0.00-0.12); Nucleated RBC % (auto) 0.2 %; Platelet Count 198 K/uL (130-400); RDW Coefficient of Variation 18.6 % (11.5-14.5); RDW Standard Deviation 66.1 fL (36.4-46.3); Red Blood Count 2.25 M/uL (4.70-6.10); White Blood Count 12.13 K/ul (4.8-10.8)
[2024-06-11] MEDS ORDERED: SODIUM CHLORIDE 0.9% 100 ML IV PRN (05:16)
[2024-06-11 05:20] LABS: INR 1.5 (0.9-1.1); Prothrombin Time 15.4 Seconds (9.0-12.0)
[2024-06-11 05:35] LABS: Polychromasia 1+; Target Cells 1+
[2024-06-11 05:40] LABS: Calcium 8.1 mg/dl (8.6-10.3); Potassium 4.6 mmol/L (3.5-5.1)
[2024-06-11 06:04] LABS: Alanine Aminotransferase 56 U/L (7-52); Albumin Globulin Ratio 1.4 (0.9-2); Albumin Level 3.1 gm/dl (3.4-5.0); Anion Gap 8 (3-11); Aspartate Aminotransferase 170 U/L (13-39); Bilirubin,Total 39.4 mg/dl (0.2-1.0); Blood Urea Nitrogen 78 mg/dl (6-23); Calcium 8.2 mg/dl (8.6-10.3); Carbon Dioxide 19 mmol/L (21-32); Chloride 100 mmol/L (98-107); Creatinine Clr Calc Pharmacy 46.6 ml/min; Creatinine Clr Calc Pharmacy 47.2 ml/min; Globulin 2.2 gm/dl (2.5-4.0); Glucose 129 mg/dl (70-99(Fasting)); Phosphorus 3.5 mg/dl (2.5-4.9); Potassium 4.6 mmol/L (3.5-5.1); Sodium 127 mmol/L (136-145); Total Protein 5.3 gm/dl (6.0-8.3)
[2024-06-11 07:12] LABS: BUN Creatinine Ratio 30.2 (10-20); Calcium 8.1 mg/dl (8.6-10.3); Creatinine Clr Calc Pharmacy 49.7 ml/min; Potassium 4.4 mmol/L (3.5-5.1)
[2024-06-11] MEDS: PHYTONADIONE 5 MG in DEXTROSE 5% 50 ML IV ONE (08:46)
--- NOTE | 2024-06-11 11:00 | Communication Note ---
Date of Service: June 11, 2024 Hep A study showed positive for antibodies only. No reflex to other studies. This only supports past infection or vaccination. Does not indicate acute i nfection
[2024-06-11 11:26] LABS: BUN Creatinine Ratio 32.1 (10-20); Calcium 8.3 mg/dl (8.6-10.3); Creatinine Clr Calc Pharmacy 52.7 ml/min; Potassium 4.5 mmol/L (3.5-5.1)
--- NOTE | 2024-06-11 11:55 | Hospitalist Progress Note ---
Date of Service June 11, 2024 Assessment & Plan (1) Spontaneous bacterial peritonitis: (2) Hepatorenal syndrome: (3) Alcoholic hepatitis with ascites: (4) Alcohol use disorder, severe, dependence: (5) Hyponatremia: Plan 53 yo male PMHx T2DM, HTN, GERD and severe alcohol use disorder admitted for progressive jaundice secondary to hyperbilirubinemia and acute alcoholic hepatitis. #Spontaneous Bacterial Peritonitis - WBC paracentesis 983, with 61% neutrophils (neutrophil count ~600) - continue treating w/ IV ceftriaxone 2000 mg #Hepatorenal Syndrome - Cr of 2.76 -> 2.48 - continue treating with midodrine + octreotide - continue IV albumin - hold diuretics #Hepatic Encephalopathy - continue lactulose - still pending ammonia levels #Hyperkalemia - K+ on admission 4.9 -> 5.2 -> 4.8 on 06/10, now within normal limites - ECG shows no peaked T waves, unchanged from admission ECG - discontinue monitoring for changes in ECG - discontinue Lokelma 10g PO daily #Alcohol Withdrawal/EtOH Use Disorder - ~96 hours post last drink - discontinued IV lorazepam d/t hepatic encephalopathy - continue daily thiamine and folate #Acute Alcoholic Hepatitis - MELD Score: 36 - INR still rising 1.3 -> 1.5 - significant ascites s/p paracentesis - administer Vit K to assess liver function #Hyponatremia - In setting of poor solute intake, beer-potomania + polydipsia - Na of 127, that is slowly correcting d/t fluid restriction and LR - Monitor chemistries #Anemia - positive stool occult blood - presence of bright red rectal bleeding - Hgb 11 -> 7.9 - keep monitoring H&H - consider colonoscopy once acute issues resolve - obtained blood type/cross match - monitor for hemodynamically instability in setting of rectal bleeding #Nutrition - severe malnutrition prior to admission - tube feeding with Peptamen - monitor for GI malaise, reflux, and return of encephalopathy as we advance diet - monitor his Mg, phosphates d/t potential of refeeding syndrome #Hepatic Mass - CT demonstrates liver lesion, patient could not tolerate MRI - paracentesis w/ cytology - pending AFP level - otherwise, liver biopsy of the mass #Troponin elevation - troponin of 40.7 - Likely 2/2 metabolic demand - echo showed normal cardiac function, LV EF of 60-65% Admission and Anticipated Discharge Date Admission Date: June 07, 2024 Supervising Physician Co-Signing Physician Notes I personally examined the patient and verified all brown points of history and exam, discussed case, and agree with decision making with Dr Lo and Yasmine Umana MS4 Awake and oriented. Roughly aware of his situation. Trying to eat. Very weak, but is out of bed in the chair. Still having dark stools. Vitals noted, Awake and oriented, fatigued and somewhat tremulous although it appears more from weakness than withdrawal. Surprisingly no distress. Markedly jaundiced. Breathing unlabored no accessory muscle use good effort. Able to state that he is in the hospital, and is also able to roughly recall the timeline of how long he has been here. Mother present at the bedside. Acute alcoholic hepatitis with jaundice, concern for cirrhosis - Overall situation was concerning for progression towards hepatorenal syndromenow his situation is stabilizing, blood pressure more stable and creatinine improving. Continue octreotide/albumin/midodrine for at least another day and then probably start to wean as long as he continues to improve. This could either have been because he was getting close to hepatorenal syndrome but has turned his course, or because he was showing septic physiology from SBP that, of course, would essentially be indistinguishable from hepatorenal syndrome in the early going. Altered mental statusprobably multifactorial - EtOH withdrawal, liver failure, hepatic encephalopathy --> using lactulose Mental status improved nicely. Continue to follow closely, continue lactulose, continue supportive care. Alcohol Abuse with acute withdrawal - Withdrawal appears to have largely passed. Continue thiamine and folate. Hyponatremia - Improving. Continue to follow closely, but starting to get close to normal. Was likely polydipsia/poor solute intake as well as a degree of unfortunate ADH mediated from poor forward flow from hepatorenal and/or septic physiology. question of liver lesioncytology on paracentesis fluid, if this is nondiagnostic, can consider biopsy of the area in question if reachable. JARAD in the setting of above - worrisome for developing hepatorenal syndrome - now on octreotide, midodrine, albumin, Fortunately improving SBP - on ceftriaxone. it's possible that all the findings concerning for hepatorenal are "just" due to septic physiology from this, see above DMII - hold jardiance, losartan 2/2 JARAD, glucose control remains acceptable blood in stool - no overt s/s GI hemorrhage - agree w GI outpt colo at this point unless situation changes; follow clinically/follow Hgb; stopped pharmacologic DVT prophylaxis (had 2 doses only, anyway). Hemodynamically stable, blood is on hold in case. Else see resident documentation as noted. DVT proph - heparin SQ as possible/as tolerated (having to hold due to blood in stool) Subjective Patient is alert and awake, and comfortably watching TV in bed. He mentions he feels "not too bad." He is in NAD, and is looking much better than previous days. He mentions his abdomen feels much better, and denies any pain or hallucinations. Per nurses, he is doing better. He had some tremors and diaphoresis upon awakening, but those have subsided. He was also able to take his medications PO, and has attempted to eat jello PO. There is still rectal bleeding. Review of Systems Review of Systems: All systems reviewed & are unremarkable except as noted in HPI & below Physical Exam Eyes: + sclera icterus Respiratory: normal respiratory effort Cardiovascular: Rate/Rhythm: regular rate and regular rhythm 2+ pitting edema bilaterally Gastrointestinal (Abdomen): Inspection/Auscultation: + abdomen distended and normal bowel sounds Neurologic: alert and oriented to person, place and time Results & Data Results & Data Vital Signs (Past 12 Hours) Vital Signs Temp Pulse Pulse Resp BP BP Pulse Ox 06/11/24 07:24 36.7 C 94 H 16 137/71 96 06/11/24 03:03 36.5 C 102 H 18 116/71 96 06/10/24 23:25 36.5 C 96 H 16 113/71 96 06/10/24 21:56 96 H O2 Del Method 06/11/24 07:24 Room Air 06/11/24 03:03 Room Air 06/10/24 23:25 Room Air 06/10/24 21:56
[2024-06-11 12:10] LABS: Hepatitis A Antibody IgM NON-REACTIVE (NON-REACTIVE)
--- NOTE | 2024-06-11 12:54 | Billing Data ---
Date of Service June 11, 2024 Coding Level of Care Code 32931 SUB INP/OBS CARE
[2024-06-11 13:40] LABS: BUN Creatinine Ratio 29.4 (10-20)
[2024-06-11 13:41] LABS: BUN Creatinine Ratio 30.5 (10-20)
[2024-06-11 16:12] LABS: Calcium 8.3 mg/dl (8.6-10.3); Creatinine Clr Calc Pharmacy 50.1 ml/min; Potassium 4.5 mmol/L (3.5-5.1)
[2024-06-11 16:26] LABS: BUN Creatinine Ratio 31.7 (10-20)
[2024-06-11 20:02] LABS: BUN Creatinine Ratio 33.3 (10-20); Calcium 8.2 mg/dl (8.6-10.3); Potassium 4.3 mmol/L (3.5-5.1)
[2024-06-11 23:26] LABS: BUN Creatinine Ratio 29.4 (10-20); Calcium 8.1 mg/dl (8.6-10.3); Creatinine Clr Calc Pharmacy 48.4 ml/min; Potassium 4.4 mmol/L (3.5-5.1)
[2024-06-12] MEDS: PEPTAMEN 1.5 CAL 1,000 ML BAG NG SCH (00:13)
[2024-06-12 02:42] LABS: Hematocrit (blood only) 20.3 % (42.0-52.0); Hemoglobin 7.2 g/dl (14.0-18.0); Mean Corpuscular Hemoglobin 35.3 pg (25.0-34.0); Mean Corpuscular Hgb Conc 35.5 g/dL (32.0-36.0); Mean Corpuscular Volume 99.5 fL (80.0-100.0); Mean Platelet Volume 10.1 fL (9.4-12.4); Nucleated RBC # (auto) 0.03 K/uL (0.00-0.12); Nucleated RBC % (auto) 0.2 %; Platelet Count 194 K/uL (130-400); RDW Coefficient of Variation 18.9 % (11.5-14.5); RDW Standard Deviation 67.9 fL (36.4-46.3); Red Blood Count 2.04 M/uL (4.70-6.10); White Blood Count 12.78 K/ul (4.8-10.8)
[2024-06-12 03:08] LABS: Alanine Aminotransferase 56 U/L (7-52); Albumin Globulin Ratio 1.3 (0.9-2); Albumin Level 3.1 gm/dl (3.4-5.0); Anion Gap 7 (3-11); Aspartate Aminotransferase 161 U/L (13-39); Bilirubin,Total 38.1 mg/dl (0.2-1.0); Blood Urea Nitrogen 80 mg/dl (6-23); Calcium 8.2 mg/dl (8.6-10.3); Carbon Dioxide 21 mmol/L (21-32); Chloride 100 mmol/L (98-107); Creatinine Clr Calc Pharmacy 48.9 ml/min; Globulin 2.3 gm/dl (2.5-4.0); Glucose 138 mg/dl (70-99(Fasting)); Phosphorus 3.7 mg/dl (2.5-4.9); Potassium 4.4 mmol/L (3.5-5.1); Sodium 128 mmol/L (136-145); Total Protein 5.4 gm/dl (6.0-8.3)
[2024-06-12 03:09] LABS: BUN Creatinine Ratio 31.7 (10-20); INR 1.4 (0.9-1.1); Prothrombin Time 14.8 Seconds (9.0-12.0)
[2024-06-12 03:38] LABS: Basophils # (auto) 0.19 K/uL (0.00-0.20); Basophils % (auto) 1.5 %; Eosinophils # (auto) 0.42 K/uL (0.00-0.50); Eosinophils % (auto) 3.3 %; Immature Granulocytes # (auto) 0.75 K/uL (0.01-0.20); Immature Granulocytes % (auto) 5.9 %; Lymphocytes # (auto) 1.09 K/uL (1.20-3.40); Lymphocytes % (auto) 8.5 %; Monocytes # (auto) 2.03 K/uL (0.11-0.59); Monocytes % (auto) 15.9 %; Neutrophils % (auto) 64.9 %; Polychromasia 1+; Target Cells 1+
[2024-06-12 08:47] LABS: Hemoglobin 7.2 g/dl (14.0-18.0)
--- NOTE | 2024-06-12 10:09 | XRay Report ---
XR chest 1V portable CLINICAL HISTORY: tube placement COMPARISON STUDY: 06/07/2024 FINDINGS: Inspiration is very shallow which can accentuate the cardiac silhouette and pulmonary vascu lar markings. No consolidation, pleural effusion, or pneumothorax seen. There is partially visualized tubing coiled at the neck. IMPRESSION: 1. Partially visualized tubing coiled at the neck. 2. Mild CHF versus artifact from shallow inspiration. ACT 112: Negative or not required by law. Electronically signed by: Sav Jain M.D. 06/12/2024 10:08 AM
--- NOTE | 2024-06-12 11:03 | XRay Report ---
XR chest 1V portable CLINICAL HISTORY: sob COMPARISON STUDY: 06/12/2024 FINDINGS: Feeding tube is seen passing through the distal stomach with the tip off the field of view inferiorly. Heart size and pulmonary vasculature are normal. No effusion, consolidation, or pneumotho rax. IMPRESSION: Feeding tube is seen as far as the distal stomach with the tip off the field of view inf eriorly. ACT 112: Negative or not required by law. Electronically signed by: Sav Jain M.D. 06/12/2024 11:02 AM
--- NOTE | 2024-06-12 12:44 | Gastroenterology Progress Note ---
Date of Service June 12, 2024 Assessment & Plan (1) Alcoholic hepatitis with ascites: Plan: With falling hemoglobin but question of whether there is melena or not. Will follow over the weekend and decide about EGD on Saturday Admission and Anticipated Discharge Date Admission Date: June 07, 2024 Subjective Stopped in to see patient because hemoglobin continues to fall. Chart says stools are tarry, he says they are normal in color. Overall he feels well. Physical Exam Constitutional: WD/WN, vitals as above Results & Data Vital Signs (Past 12 Hours) Vital Signs Temp Pulse Resp BP Pulse Ox O2 Del Method 06/12/24 10:24 37.0 C 79 18 114/71 97 Room Air 06/12/24 07:06 36.8 C 83 20 106/64 97 Room Air 06/12/24 03:36 36.7 C 86 18 111/67 96 Room Air
[2024-06-12 13:12] LABS: Hematocrit (blood only) 19.5 % (42.0-52.0); Hemoglobin 6.8 g/dl (14.0-18.0)
[2024-06-12] MEDS ORDERED: SODIUM CHLORIDE 0.9% 100 ML IV PRN (13:17)
--- NOTE | 2024-06-12 14:26 | Hospitalist Progress Note ---
Date of Service June 12, 2024 Assessment & Plan (1) Spontaneous bacterial peritonitis: (2) Hepatorenal syndrome: (3) Alcoholic hepatitis with ascites: (4) Alcohol use disorder, severe, dependence: (5) Hyponatremia: Plan 53 yo male PMHx T2DM, HTN, GERD and severe alcohol use disorder admitted for progressive jaundice secondary to hyperbilirubinemia and acute alcoholic hepatitis. #Anemia - positive stool occult blood - presence of bright red rectal bleeding for 1.5 months - Hgb 11 -> 6.8 - Hct 29.8 -> 19.5% - keep monitoring H&H Q6H - transfuse pRBC - consider colonoscopy once acute issues resolve - considering EGD as per GI - monitor for hemodynamically instability in setting of rectal bleeding #Spontaneous Bacterial Peritonitis - WBC paracentesis 983, with 61% neutrophils (neutrophil count ~600) - continue treating w/ IV ceftriaxone 2000 mg, will probably need total antibiotic therapy for 5-7 days - prophylactic Abx needed to prevent recurrence #Hepatorenal Syndrome - Cr of 2.76 -> 2.52 - continue treating with midodrine + octreotide - continue IV albumin - hold diuretics #Hepatic Encephalopathy - continue lactulose - still pending ammonia levels #Hyperkalemia - K+ on admission 4.9 -> 5.2 -> 4.8 on 06/10, now within normal limites - ECG shows no peaked T waves, unchanged from admission ECG - discontinue monitoring for changes in ECG - discontinue Lokelma 10g PO daily #Alcohol Withdrawal/EtOH Use Disorder - >96 hours post last drink - pt not experiencing anymore acute withdrawal symptoms - continue daily PO thiamine and folate #Acute Alcoholic Hepatitis - MELD Score: 36 - INR 1.3 -> 1.5 -> 1.4 - significant ascites s/p paracentesis - PT + INR trending slightly downwards post administration of Vit K #Hyponatremia - In setting of poor solute intake, beer-potomania - Na of 128, slowly correcting d/t fluid restriction and LR - Monitor chemistries #Nutrition - severe malnutrition prior to admission - continue tube feeding with Peptamen - monitor for GI malaise, reflux, and return of encephalopathy as we advance diet #Hepatic Mass - CT demonstrates liver lesion, patient could not tolerate MRI - paracentesis w/ cytology - pending AFP level - otherwise, liver biopsy of the mass #Troponin elevation - troponin of 40.7 - Likely 2/2 metabolic demand - echo showed normal cardiac function, LV EF of 60-65% Admission and Anticipated Discharge Date Admission Date: June 07, 2024 Supervising Physician Co-Signing Physician Notes I personally examined the patient and verified all brown points of history and exam, discussed case, and agree with decision making with Dr Dickinson and Yasmine Umana MS4 Still weak, but awake and alert. Abreast of situation. Relating to his family that he will quit drinking. Still very weak. Cannot really get up and around on his own. Still black and bloody stools per nursing, he notes he is not able to see them himself. Vitals noted, Awake and oriented, fatigued but no distress. Markedly jaundiced. Breathing unlabored no accessory muscle use good effort. HEENT normocephalic atraumatic mucous membranes moist marked scleral icterus. Breathing unlabored no accessory muscle use good effort. Abdomen moderately distended. Skin without rashes or icterus diffuse extreme pallor. No focal neurodeficits. Acute alcoholic hepatitis with jaundice, concern for cirrhosis - Overall situation was concerning for progression towards hepatorenal syndromenow his situation is stabilizing, blood pressure more stable and creatinine improving. Continue octreotide/albumin/midodrine At least into tomorrowblood pressure and heart rate of been stable, slight creatinine bump nonspecificcould be that this is his current baseline range until his body heals, could be due to anemia, but because of the small possibility it could still be ongoing hepatorenal physiology I will continue treatment at least into tomorrowdepending on his overall clinical status, heart rate/blood pressure/creatinine tomorrow, may consider starting to take down at least one of the 3, but again depending on his clinical status. This could either have been because he was getting close to hepatorenal syndrome but has turned his course, or because he was showing septic physiology from SBP that, of course, would essentially be indistinguishable from hepatorenal syndrome in the early going. Altered mental statusprobably multifactorial - EtOH withdrawal, liver failur e, hepatic encephalopathy --> using lactulose Mental status improved nicely and has stayed that way. Continue lactulosetitrate as needed. Alcohol Abuse with acute withdrawal - Withdrawal appears to have largely passed. Continue thiamine and folate. Hyponatremia - Improving. Continue to follow closely, but starting to get close to normal. Was likely polydipsia/poor solute intake as well as a degree of unfortunate ADH mediated from poor forward flow from hepatorenal and/or septic physiology. No longer in need to check you for our basic metabolic panels question of liver lesioncytology on paracentesis fluid, if this is nondiagnostic, can consider biopsy of the area in question if reachable. JARAD in the setting of above - worrisome for developing hepatorenal syndrome - now on octreotide, midodrine, albumin, kidney numbers have stabilized. Slight worsening todaybut not clear if this is just a new baseline (i.e. the hepatorenal insult led to a degree of ATN and it may take time to heal or may be a new normal; versus ongoing hepatorenal physiologyseems the least likely given that his heart rate and blood pressure are reassuring; versus poor perfusion from anemiafollow basic metabolic panel SBP - on ceftriaxone. it's possible that all the findings concerning for hepatorenal are "just" due to septic physiology from this, see above DMII - hold jardiance, losartan 2/2 JARAD, glucose control remains acceptable blood in stool with acute blood loss anemiasuspect a lot of it is oozing of blood loss along with reduced production/sluggish hematopoiesis from maln utrition. Hemodynamically stable, as above, it is possible that the anemia is impacting his creatinine although there are many other factors that could be impacting it as well. Transfused today. Continue to follow. Appreciate GI vigilance. DVT proph - heparin SQ as possible/as tolerated (having to hold due to blood in stool, has not had for days) otherwise as above Subjective Patient is alert and awake, and sitting comfortably in bed. He mentions he feels well, wasn't able to sleep well last night. When asked about the rectal bleeding, he mentions that has been there for 1.5 months, with no associated pain and attributes it to hemorrhoids. He denies any hematemesis. Review of Systems Review of Systems: All systems reviewed & are unremarkable except as noted in HPI & below Physical Exam Physical Exam: Constitutional: NAD HEENT: +scleral icterus CV: regular rhythm, tachycardic, no murmur appreciated, extremities well- perfused, 2+ pitting edema bilaterally Resp: CTABL, no wheezes/rales/rhonchi appreciated, no increased work of breathing GI: Distended, no tenderness to palpation MSK: no gross deformities appreciated Skin: +jaundice Neuro: alert, oriented to person, place, time Results & Data Results & Data Vital Signs (Past 12 Hours) Vital Signs Temp Pulse Pulse Resp BP Pulse Ox O2 Del Method 06/12/24 07:06 36.8 C 83 20 106/64 97 Room Air 06/12/24 03:36 36.7 C 86 18 111/67 96 Room Air 06/11/24 23:59 36.8 C 86 19 117/70 97 Room Air 06/11/24 21:48 86
--- NOTE | 2024-06-12 15:36 | Billing Data ---
Date of Service June 12, 2024 Coding Level of Care Code 23166 SUB INP/OBS CARE
[2024-06-12 18:58] LABS: Hematocrit (blood only) 20.8 % (42.0-52.0); Hemoglobin 7.3 g/dl (14.0-18.0)
[2024-06-12 18:59] LABS: Calcium 7.8 mg/dl (8.6-10.3); Creatinine Clr Calc Pharmacy 46.9 ml/min; Potassium 4.4 mmol/L (3.5-5.1)
[2024-06-12 19:01] LABS: BUN Creatinine Ratio 29.8 (10-20)
[2024-06-12] MEDS: PANTOprazole 40 MG TAB PO SCH (20:24)
[2024-06-13 01:15] LABS: Hematocrit (blood only) 20.5 % (42.0-52.0); Hemoglobin 7.3 g/dl (14.0-18.0)
--- NOTE | 2024-06-13 07:26 | Hospitalist Progress Note ---
Date of Service June 13, 2024 Assessment & Plan (1) Hepatorenal syndrome: (2) Elevated troponin: (3) Spontaneous bacterial peritonitis: (4) Elevated serum creatinine: (5) Transaminitis: (6) Hyponatremia: (7) Alcohol use disorder, severe, dependence: (8) Jaundice: (9) Alcoholic hepatitis with ascites: Plan 53 yo male PMHx T2DM, HTN, GERD and severe alcohol use disorder admitted for progressive jaundice secondary to hyperbilirubinemia and acute alcoholic hepatitis. #Anemia -Positive stool occult blood, presence of bright red rectal bleeding for 1.5 months -Received 1u PRBCs on 06/12, Hgb 6.8 this morning. Will order additional 1u PRBCs -Repeat H&H q6h overnight. Transfuse for Hgb <7 -GI consulted for considering of EGD and colonoscopy, appreciate recommendations -monitor for hemodynamically instability in setting of rectal bleeding #Spontaneous Bacterial Peritonitis -WBC paracentesis 983, with 61% neutrophils (neutrophil count ~600) -Continue treating w/ IV ceftriaxone 2000 mg, currently on day 5 of treatment, anticipate stopping after 7 days of treatment -Prophylactic Abx needed to prevent recurrence #Hepatorenal Syndrome -Cr of 2.78 on 06/13 -Continue treating with midodrine and octreotide -IV albumin TID concluded on 06/12, will monitor at present and if Cr is >2.95 tomorrow would consider restarting albumin -Consider removing midodrine, octreotide in a step-hurt manner if patient continues to remain stable off of IV albumin for >24 hrs - #Hepatic Encephalopathy -Continue lactulose -Ammonia levels unable to be obtained due to degree of icterus #Hyperkalemia (resolved) -K+ on admission (peaked at 5.2), now within normal limits #Alcohol Withdrawal/EtOH Use Disorder ->96 hours post last drink -pt not experiencing anymore acute withdrawal symptoms -continue daily PO thiamine and folate #Acute Alcoholic Hepatitis -MELD Score: 36, INR 1.5 on 06/13 -Significant ascites s/p paracentesis #Hyponatremia -In setting of poor solute intake, beer-potomania -Na of 123 on 06/13, improved compared to admission -Will recheck metabolic panel q12h to ensure Na does not continue to downtrend #Severe Malnutrition -Severe malnutrition prior to admission -Started on tube feeding with Peptamen via NG, however NG tube removed overnight on 06/12 -Encouraged PO intake, if not getting adequate intake we may need to re-insert NG tube for nutrition #Hepatic Mass -CT demonstrates liver lesion, patient could not tolerate MRI -paracentesis w/ cytology -AFP level: 4, no elevation -otherwise, liver biopsy of the mass #Troponin elevation (resolved) -Troponin of 40.7 on admission, likely 2/2 metabolic demand -Echo showed normal cardiac function, LV EF of 60-65% Diet: Carb conscious/DM 2 VTE Prophylaxis: Contraindicated due to anemia Code Status: Full Code Admission and Anticipated Discharge Date Admission Date: June 07, 2024 Supervising Physician Co-Signing Physician Notes I personally examined the patient and verified all brown points of history and exam, discussed case, and agree with decision making with Dr Prince feeling better eating better got out of bed on his own Vitals noted, Awake and oriented, fatigued but no distress. Markedly jaundiced. Breathing unlabored no accessory muscle use good effort. HEENT normocephalic atraumatic mucous membranes moist marked scleral icterus. Breathing unlabored no accessory muscle use good effort. Abdomen moderately distended. Skin without rashes or icterus diffuse extreme pallor. No focal neurodeficits. Acute alcoholic hepatitis with jaundice, concern for cirrhosis - Overall situation was concerning for progression towards hepatorenal syndromenow his situation is stabilizing, blood pressure more stable and creatinine improving. albumin stopped, probably stop octreotide tomorrow depending on progress, slight creatinine bump nonspecificcould be that this is his current baseline range until his body heals, could be due to anemia, but because of the small possibility it could still be ongoing hepatorenal physiology but seems less likely now. suspect that some of his JARAD is ATN physiology as well. This could either have been because he was getting close to hepatorenal syndrome but has turned his course, or because he was showing septic physiology from SBP that, of course, would essentially be indistinguishable from hepatorenal syndrome in the early going. Altered mental statusprobably multifactorial - EtOH withdrawal, liver failure, hepatic encephalopathy --> using lactulose Mental status improved nicely and has stayed that way. Continue lactulosetitrate as needed. improved overall Alcohol Abuse with acute withdrawal - Withdrawal appears to have largely passed. Continue thiamine and folate. Hyponatremia - Improving. Continue to follow. Was likely polydipsia/poor solute intake as well as a degree of unfortunate ADH mediated from poor forward flow from hepatorenal and/or septic physiology. No longer in need to check you for our basic metabolic panels question of liver lesionAFP and cytology reassuring JARAD in the setting of above - worrisome for developing hepatorenal syndrome - now on octreotide, midodrine, albumin, kidney numbers have stabilized. follow - but suspect some related to anemia some from ATN from prior septic and hepatorenal physiology SBP - on ceftriaxone. it's possible that all the findings concerning for hepatorenal are "just" due to septic physiology from this, see above DMII - hold jardiance, losartan 2/2 JARAD, glucose control remains acceptable blood in stool with acute blood loss anemiasuspect a lot of it is oozing of blood loss along with reduced production/sluggish hematopoiesis from malnutrition. Hemodynamically stable, as above, it is possible that the anemia is impacting his creatinine although there are many other factors that could be impacting it as well. but requiring transfusion again today. Continue to follow. Appreciate GI vigilance. DVT proph - pharmacologic contraindicated due to bleeding. mechanical of dubious benefit. ambulation is increasing follow PO intake - he had NG removed - discussed if po intake still poor may need to replace - but improving otherwise as above Subjective Patient was seen and examined at bedside. Overnight, NG tube was removed. Patient has been tolerating PO liquids and some food without issue, also taking his lactulose. Alert and oriented, feeling well but a bit tired. Review of Systems Review of Systems: As per above Physical Exam Constitutional: WD/WN, vitals as above Eyes: Scleral icterus ENMT: Ears: no external ear abnormality Nose: no external nose abnormality moist mucous membranes Respiratory: normal respiratory effort, lungs clear to auscultation Cardiovascular: Rate/Rhythm: regular rate and regular rhythm +1 nonpitting edema of bilateral lower e xtremities Gastrointestinal (Abdomen): Percussion/Palpation: abdomen soft; no guarding Abdominal distension Musculoskeletal: Moves all limbs independently Skin: + jaundice; no rashes Psychiatric: A+Ox3, euthymic affect Results & Data Results & Data Vital Signs (Past 12 Hours) Vital Signs Temp Pulse Pulse Resp BP Pulse Ox O2 Del Method 06/13/24 04:03 36.7 C 82 17 114/65 97 Room Air 06/12/24 23:55 36.5 C 86 18 112/68 98 Room Air 06/12/24 23:14 80 06/12/24 19:51 36.6 C 77 17 114/67 98 Room Air Resident Activity Tracking Resident Involvement: Resident Care Provided Care Provided: Adult Hospital Medicine
[2024-06-13 07:53] LABS: Hematocrit (blood only) 18.9 % (42.0-52.0); Hemoglobin 6.8 g/dl (14.0-18.0); Mean Corpuscular Hemoglobin 35.4 pg (25.0-34.0); Mean Corpuscular Volume 98.4 fL (80.0-100.0); Mean Platelet Volume 10.4 fL (9.4-12.4); Platelet Count 192 K/uL (130-400); RDW Coefficient of Variation 20.2 % (11.5-14.5); RDW Standard Deviation 70.6 fL (36.4-46.3); Red Blood Count 1.92 M/uL (4.70-6.10); White Blood Count 14.15 K/ul (4.8-10.8)
[2024-06-13 08:08] LABS: INR 1.5 (0.9-1.1); Prothrombin Time 15.3 Seconds (9.0-12.0)
[2024-06-13 08:15] LABS: Anisocytosis Present; Basophils # (auto) 0.16 K/uL (0.00-0.20); Basophils % (auto) 1.1 %; Echinocytes 1+; Eosinophils # (auto) 0.23 K/uL (0.00-0.50); Eosinophils % (auto) 1.6 %; Immature Granulocytes # (auto) 0.94 K/uL (0.01-0.20); Immature Granulocytes % (auto) 6.6 %; Lymphocytes # (auto) 1.07 K/uL (1.20-3.40); Lymphocytes % (auto) 7.6 %; Monocytes # (auto) 2.66 K/uL (0.11-0.59); Monocytes % (auto) 18.8 %; Neutrophils # (auto) 9.09 K/uL (1.40-6.50); Neutrophils % (auto) 64.3 %
[2024-06-13] MEDS: FOLIC ACID 1 MG TAB PO SCH (08:20)
[2024-06-13] MEDS: THIAMINE HCL 100 MG TAB PO SCH (08:22)
[2024-06-13 09:18] LABS: Alanine Aminotransferase 56 U/L (7-52); Albumin Globulin Ratio 1.5 (0.9-2); Albumin Level 2.9 gm/dl (3.4-5.0); Anion Gap 7 (3-11); Aspartate Aminotransferase 151 U/L (13-39); Bilirubin,Total 34.5 mg/dl (0.2-1.0); Blood Urea Nitrogen 86 mg/dl (6-23); Calcium 7.7 mg/dl (8.6-10.3); Carbon Dioxide 19 mmol/L (21-32); Chloride 97 mmol/L (98-107); Creatinine Clr Calc Pharmacy 44.6 ml/min; Globulin 1.9 gm/dl (2.5-4.0); Glucose 134 mg/dl (70-99(Fasting)); Magnesium 2.8 mg/dl (1.7-2.4); Phosphorus 4.1 mg/dl (2.5-4.9); Potassium 4.5 mmol/L (3.5-5.1); Sodium 123 mmol/L (136-145); Total Protein 4.8 gm/dl (6.0-8.3)
[2024-06-13 09:25] LABS: BUN Creatinine Ratio 30.9 (10-20)
[2024-06-13] MEDS ORDERED: SODIUM CHLORIDE 0.9% 100 ML IV PRN (09:34)
--- NOTE | 2024-06-13 14:42 | Billing Data ---
Date of Service June 13, 2024 Coding Level of Care Code 39704 SUB INP/OBS CARE
[2024-06-13 16:20] LABS: Hematocrit (blood only) 22.4 % (42.0-52.0); Hemoglobin 7.8 g/dl (14.0-18.0)
[2024-06-13 17:04] LABS: Potassium 4.7 mmol/L (3.5-5.1)
[2024-06-13 17:14] LABS: BUN Creatinine Ratio 27.9 (10-20)
[2024-06-14 06:34] LABS: Hematocrit (blood only) 18.7 % (42.0-52.0); Hemoglobin 6.6 g/dl (14.0-18.0); Mean Corpuscular Hemoglobin 35.3 pg (25.0-34.0); Mean Corpuscular Hgb Conc 35.3 g/dL (32.0-36.0); Mean Platelet Volume 10.6 fL (9.4-12.4); Platelet Count 225 K/uL (130-400); RDW Coefficient of Variation 19.9 % (11.5-14.5); RDW Standard Deviation 71.3 fL (36.4-46.3); Red Blood Count 1.87 M/uL (4.70-6.10); White Blood Count 16.32 K/ul (4.8-10.8)
[2024-06-14 06:53] LABS: INR 1.4 (0.9-1.1); Prothrombin Time 15.2 Seconds (9.0-12.0)
[2024-06-14] MEDS ORDERED: SODIUM CHLORIDE 0.9% 100 ML IV PRN ×2 (06:59→07:09)
[2024-06-14 07:22] LABS: Alanine Aminotransferase 62 U/L (7-52); Albumin Globulin Ratio 1.4 (0.9-2); Albumin Level 2.8 gm/dl (3.4-5.0); Anion Gap 8 (3-11); Aspartate Aminotransferase 147 U/L (13-39); Bilirubin,Total 34.6 mg/dl (0.2-1.0); Blood Urea Nitrogen 100 mg/dl (6-23); Calcium 7.6 mg/dl (8.6-10.3); Carbon Dioxide 18 mmol/L (21-32); Chloride 98 mmol/L (98-107); Creatinine Clr Calc Pharmacy 33.6 ml/min; Glucose 132 mg/dl (70-99(Fasting)); Magnesium 2.9 mg/dl (1.7-2.4); Phosphorus 5.1 mg/dl (2.5-4.9); Potassium 4.7 mmol/L (3.5-5.1); Sodium 124 mmol/L (136-145); Total Protein 4.8 gm/dl (6.0-8.3)
--- NOTE | 2024-06-14 07:22 | Hospitalist Progress Note ---
Date of Service June 14, 2024 Assessment & Plan (1) Hepatorenal syndrome: (2) Elevated troponin: (3) Spontaneous bacterial peritonitis: (4) Elevated serum creatinine: (5) Transaminitis: (6) Hyponatremia: (7) Alcohol use disorder, severe, dependence: (8) Jaundice: (9) Alcoholic hepatitis with ascites: Plan 53 yo male PMHx T2DM, HTN, GERD and severe alcohol use disorder admitted for progressive jaundice secondary to hyperbilirubinemia and acute alcoholic hepatitis. #Anemia -Positive stool occult blood, presence of bright red rectal bleeding for 1.5 months -Received 2 units of PRBCS in the past two days, Hgb 6.6 this morning. Will order additional 1u PRBCs -Repeat H&H q6h after conclusion of transfusion. Transfuse for Hgb <7 -GI consulted, planning for EGD on 06/15. NPO at midnight -monitor for hemodynamically instability in setting of rectal bleeding #Spontaneous Bacterial Peritonitis -WBC paracentesis 983, with 61% neutrophils (neutrophil count ~600) -Continue treating w/ IV ceftriaxone 2000 mg, currently on day 6 of treatment, anticipate stopping after 7 days of treatment -Prophylactic Abx needed to prevent recurrence #Hepatorenal Syndrome -Cr of 3.70 on 06/14 -Continue treating with midodrine and octreotide -IV albumin TID concluded on 06/12, resumed IV albumin and IVF on 06/14 due to creatinine bump from 2.78 to 3.70 #Hepatic Encephalopathy -Continue lactulose -Ammonia levels unable to be obtained due to degree of icterus #Hyperkalemia (resolved) -K+ on admission (peaked at 5.2), now within normal limits #Alcohol Withdrawal/EtOH Use Disorder ->96 hours post last drink -pt not experiencing anymore acute withdrawal symptoms -continue daily PO thiamine and folate #Acute Alcoholic Hepatitis -MELD Score: 36, INR 1.4 on 06/14 -Significant ascites s/p paracentesis #Hyponatremia -In setting of poor solute intake, beer-potomania -Na of 124 on 06/14, improved compared to admission -Continue to monitor metabolic panels #Severe Malnutrition -Severe malnutrition prior to admission -Started on tube feeding with Peptamen via NG, however NG tube removed overnight on 06/12 -Encouraged PO intake, if not getting adequate intake we may need to re-insert NG tube for nutrition #Hepatic Mass -CT demonstrates liver lesion, patient could not tolerate MRI -paracentesis w/ cytology -AFP level: 4, no elevation -otherwise, liver biopsy of the mass #Troponin elevation (resolved) -Troponin of 40.7 on admission, likely 2/2 metabolic demand -Echo showed normal cardiac function, LV EF of 60-65% Diet: Carb conscious/DM 2, NPO at midnight VTE Prophylaxis: Contraindicated due to anemia Code Status: Full Code Admission and Anticipated Discharge Date Admission Date: June 07, 2024 Supervising Physician Co-Signing Physician Notes I personally examined the patient and verified all brown points of history and exam, discussed case, and agree with decision making with Dr Prince feeling ok eating >50% mostly just feels tired. still weak but able to get oob. doesn't notice any bleeding Vitals noted, Awake and oriented, fatigued but no distress. Markedly jaundiced. Breathing unlabored no accessory muscle use good effort. HEENT normocephalic atraumatic mucous membranes moist marked scleral icterus. Breathing unlabored no accessory muscle use good effort. Abdomen moderately distended. Skin without rashes or icterus diffuse extreme pallor. No focal neurodeficits. Acute alcoholic hepatitis with jaundice, concern for cirrhosis - bili improving, INR overall stable. still quite guarded prognosis. Cr rising - resumed albumin (never had stopped midodrine/octreotide - and will continue all 3 for now) - hard to r/o recurrence of hepatorenal but also (see below w JARAD) suspicious that the renal function is multifactorial w septic physiology and prerenal/ATN at play as well. Altered mental statusprobably multifactorial - EtOH withdrawal, liver failure, hepatic encephalopathy --> using lactulose Mental status improved nicely and has stayed that way. Continue lactulosetitrate as needed. improved overall and mentation has stayed good for days worsening leukocytosis- -known SBP. no other s/s new infection. no fever. suspect demargination. CRP reassuring for context; procal, with hindsight, likely was going to be spuriously elevated due to Cr. continue ceftriaxone, vigilance for other infections (none now) trend CRP as well Alcohol Abuse with acute withdrawal - Withdrawal appears to have largely passed. Continue thiamine and folate. Hyponatremia - continue to follow. worse - likely fluid shifting from blood/IVF fluids, ascites, ARF. Was likely polydipsia/poor solute intake as well as a degree of unfortunate ADH mediated from poor forward flow from hepatorenal and/or septic physiology. with worse - resume q4hr bmp, giving small (500) bolus NSS for fluid resus and salt load - but for now will continue maintenance fluid w LR so as to mimimize risk of overcorrection question of liver lesionAFP and cytology reassuring JARAD/ARF in the setting of above - worrisome for developing hepatorenal syndrome but also with worse Cr but improving bili/mentation - more suspicious the worsening ARF is multifactorial - with anemia now being the most recent prerenal culprit superimposed on multiple other previous prerenal culprits (hepatorenal, SBP/septic physiology, malnutrition) - high risk for ATN - continue to maintain perfusion, avoid nephrotoxins, follow BMP, fluid bolus/maintenance fluids/blood. repeat UA, urine Na as well as check FeNa. doubt obstructive but check renal US for completeness SBP - on ceftriaxone. it's possible that all the findings concerning for hepatorenal are "just" due to septic physiology from this, see above DMII - hold jardiance, losartan 2/2 JARAD, glucose control remains acceptable blood in stool with acute blood loss anemiasuspect a lot of it is oozing of blood loss along with reduced production/sluggish hematopoiesis from malnutrition. Hemodynamically stable, as above, it is possible that the anemia is impacting his creatinine although there are many other factors that could be impacting it as well. requiring transfusion yet again today. Continue to follow. Appreciate GI vigilance/endoscopy tomorrow. DVT proph - pharmacologic contraindicated due to bleeding. mechanical of dubious benefit. ambulation is increasing follow PO intake - he had NG removed - discussed if po intake still poor may need to replace - but seems to be reasonable otherwise as above Subjective Patient was seen and examined at bedside. No acute events reported overnight. Patient states that he slept better last night. Has been trying to eat and drink more- had a Boost drink this morning, half of his eggs and some blueberries. Denies dizziness/lightheadedness. Review of Systems Review of Systems: As per above Physical Exam Constitutional: WD/WN, vitals as above ENMT: Ears: no external ear abnormality Nose: no external nose abnormality Respiratory: normal respiratory effort, lungs clear to auscultation Cardiovascular: Rate/Rhythm: regular rate and regular rhythm Gastrointestinal (Abdomen): Percussion/Palpation: no guarding Abdomen distended, ascites presented Musculoskeletal: Moves all limbs independently Skin: + jaundice; no rashes Bilateral lower extremities with mild edema Psychiatric: A+Ox3, euthymic affect Results & Data Results & Data Vital Signs (Past 12 Hours) Vital Signs Temp Pulse Pulse Resp BP BP Pulse Ox 06/14/24 07:07 36.6 C 77 18 105/63 99 06/14/24 02:58 36.5 C 77 18 110/69 98 06/14/24 00:13 76 06/13/24 23:25 36.6 C 76 17 101/63 97 06/13/24 19:52 36.6 C 71 18 103/64 92 O2 Del Method 06/14/24 07:07 Room Air 06/14/24 02:58 Room Air 06/14/24 00:13 06/13/24 23:25 Room Air 06/13/24 19:52 Room Air Resident Activity Tracking Resident Involvement: Resident Care Provided Care Provided: Adult Hospital Medicine
[2024-06-14 07:29] LABS: Anisocytosis Present; Basophils # (auto) 0.15 K/uL (0.00-0.20); Basophils % (auto) 0.9 %; Eosinophils # (auto) 0.29 K/uL (0.00-0.50); Eosinophils % (auto) 1.8 %; Immature Granulocytes # (auto) 1.29 K/uL (0.01-0.20); Immature Granulocytes % (auto) 7.9 %; Monocytes # (auto) 3.21 K/uL (0.11-0.59); Monocytes % (auto) 19.7 %; Neutrophils # (auto) 10.08 K/uL (1.40-6.50); Neutrophils % (auto) 61.7 %
[2024-06-14] MEDS: PHYTONADIONE 5 MG in DEXTROSE 5% 50 ML IV ONE (09:10)
[2024-06-14] MEDS: LACTATED RINGER'S 1,000 ML IV SCH (09:10)
[2024-06-14] MEDS: ALBUMIN 25% 12.5 GM/50 ML VIAL IV SCH (09:19)
--- NOTE | 2024-06-14 09:21 | Gastroenterology Progress Note ---
Date of Service June 14, 2024 Assessment & Plan (1) Anemia: Plan: Plan for EGD tomorrow. Ascites seems to be reaccumulating. Might consider repeat paracentesis next week sometime Admission and Anticipated Discharge Date Admission Date: June 07, 2024 Subjective About the same. H/H are trickling down. Stools reported to be brown now. Plan for EGD in am Physical Exam Physical Exam: Markedly icteric Constitutional: + ill appearing Gastrointestinal (Abdomen): Inspection/Auscultation: + abdomen distended Percussion/Palpation: + ascites Results & Data Vital Signs (Past 12 Hours) Vital Signs Temp Pulse Pulse Resp BP BP Pulse Ox 06/14/24 07:07 36.6 C 77 18 105/63 99 06/14/24 02:58 36.5 C 77 18 110/69 98 06/14/24 00:13 76 06/13/24 23:25 36.6 C 76 17 101/63 97 O2 Del Method 06/14/24 07:07 Room Air 06/14/24 02:58 Room Air 06/14/24 00:13 06/13/24 23:25 Room Air
[2024-06-14] MEDS: FAMOTIDINE 20MG IV PUSH 20 MG/5 ML SYR IV ONE (09:34)
[2024-06-14 15:07] LABS: Hematocrit (blood only) 23.1 % (42.0-52.0); Mean Corpuscular Hgb Conc 34.6 g/dL (32.0-36.0); Mean Corpuscular Volume 98.3 fL (80.0-100.0); Mean Platelet Volume 10.3 fL (9.4-12.4); Platelet Count 235 K/uL (130-400); RDW Coefficient of Variation 20.2 % (11.5-14.5); RDW Standard Deviation 70.1 fL (36.4-46.3); Red Blood Count 2.35 M/uL (4.70-6.10); White Blood Count 18.84 K/ul (4.8-10.8)
[2024-06-14 15:28] LABS: Calcium 7.9 mg/dl (8.6-10.3); Creatinine Clr Calc Pharmacy 31.9 ml/min; Potassium 4.5 mmol/L (3.5-5.1)
[2024-06-14 15:30] LABS: BUN Creatinine Ratio 26.2 (10-20)
[2024-06-14 15:56] LABS: Anisocytosis Present; Basophils % (auto) 1.1 %; Eosinophils # (auto) 0.39 K/uL (0.00-0.50); Eosinophils % (auto) 2.1 %; Immature Granulocytes # (auto) 1.46 K/uL (0.01-0.20); Immature Granulocytes % (auto) 7.7 %; Lymphocytes # (auto) 1.42 K/uL (1.20-3.40); Lymphocytes % (auto) 7.5 %; Monocytes # (auto) 3.62 K/uL (0.11-0.59); Monocytes % (auto) 19.2 %; Neutrophils # (auto) 11.75 K/uL (1.40-6.50); Neutrophils % (auto) 62.4 %; Polychromasia 1+
--- NOTE | 2024-06-14 16:39 | Billing Data ---
Date of Service June 14, 2024 Coding Level of Care Code 52578 SUB INP/OBS CARE
[2024-06-14] MEDS: SODIUM CHLORIDE 0.9% 500 ML IV ONE (17:17)
[2024-06-14 17:35] LABS: Creatinine Clr Calc Pharmacy 32.8 ml/min; Potassium 4.4 mmol/L (3.5-5.1)
[2024-06-14 17:36] LABS: BUN Creatinine Ratio 27.2 (10-20)
[2024-06-14 18:44] LABS: Appearance Urine Cloudy (Clear); Bacteria Urine Automated None Seen (None Seen); Bilirubin Urine 3+ (Negative); Blood Urine 3+ (Negative); Color Urine Dark Yellow; Epithelial Cell Urine Auto 0-2 /hpf (0-2); Glucose Urine UA Negative (Negative); Hyaline Casts Urine Present /lpf (None Presnt); Ketones Urine Negative (Negative); Leukocyte Esterase Urine 2+ (Negative); Nitrite Urine Positive (Negative); Protein Urine 1+ (Negative); RBC Urine Automated >20 /hpf (0-2); Specific Gravity Urine 1.015 (1.000-1.030); Urobilinogen Urine Negative (Negative); pH Urine 5.5 (4.5-7.5)
[2024-06-14 18:50] LABS: Sodium Random Urine < 10 mmol/L
[2024-06-14 18:58] LABS: Creatinine Urine Random 116.7 mg/dl
[2024-06-14] MEDS: MELATONIN 3 MG TAB PO PRN (21:14)
[2024-06-14 21:54] LABS: Hematocrit (blood only) 21.1 % (42.0-52.0); Hemoglobin 7.5 g/dl (14.0-18.0)
[2024-06-14 21:57] LABS: Calcium 7.6 mg/dl (8.6-10.3); Creatinine Clr Calc Pharmacy 32.2 ml/min; Potassium 4.6 mmol/L (3.5-5.1)
[2024-06-14 21:58] LABS: BUN Creatinine Ratio 26.4 (10-20)
[2024-06-15 02:05] LABS: BUN Creatinine Ratio 26.4 (10-20); Calcium 7.8 mg/dl (8.6-10.3); Creatinine Clr Calc Pharmacy 31.9 ml/min; Potassium 4.4 mmol/L (3.5-5.1)
[2024-06-15 05:12] LABS: Hematocrit (blood only) 20.6 % (42.0-52.0); Hemoglobin 7.5 g/dl (14.0-18.0); Mean Corpuscular Hgb Conc 36.4 g/dL (32.0-36.0); Mean Corpuscular Volume 96.3 fL (80.0-100.0); Mean Platelet Volume 10.6 fL (9.4-12.4); Platelet Count 218 K/uL (130-400); RDW Coefficient of Variation 20.4 % (11.5-14.5); RDW Standard Deviation 69.7 fL (36.4-46.3); Red Blood Count 2.14 M/uL (4.70-6.10)
[2024-06-15 05:28] LABS: Anisocytosis Present; Basophils # (auto) 0.06 K/uL (0.00-0.20); Basophils % (auto) 0.4 %; Echinocytes 1+; Eosinophils # (auto) 0.58 K/uL (0.00-0.50); Eosinophils % (auto) 3.8 %; Immature Granulocytes # (auto) 0.99 K/uL (0.01-0.20); Immature Granulocytes % (auto) 6.4 %; Lymphocytes # (auto) 1.13 K/uL (1.20-3.40); Lymphocytes % (auto) 7.3 %; Monocytes # (auto) 2.67 K/uL (0.11-0.59); Monocytes % (auto) 17.3 %; Neutrophils # (auto) 9.97 K/uL (1.40-6.50); Neutrophils % (auto) 64.8 %; Polychromasia 1+
[2024-06-15 05:37] LABS: INR 1.4 (0.9-1.1); Prothrombin Time 15.1 Seconds (9.0-12.0)
[2024-06-15 05:42] LABS: Alanine Aminotransferase 61 U/L (7-52); Albumin Globulin Ratio 1.7 (0.9-2); Anion Gap 10 (3-11); Aspartate Aminotransferase 134 U/L (13-39); Bilirubin,Total 34.3 mg/dl (0.2-1.0); Blood Urea Nitrogen 102 mg/dl (6-23); C Reactive Protein 7.02 mg/dl (0-0.5); Calcium 7.7 mg/dl (8.6-10.3); Carbon Dioxide 17 mmol/L (21-32); Chloride 97 mmol/L (98-107); Creatinine Clr Calc Pharmacy 32.5 ml/min; Globulin 1.8 gm/dl (2.5-4.0); Glucose 122 mg/dl (70-99(Fasting)); Magnesium 2.8 mg/dl (1.7-2.4); Phosphorus 5.1 mg/dl (2.5-4.9); Potassium 4.4 mmol/L (3.5-5.1); Sodium 124 mmol/L (136-145); Total Protein 4.8 gm/dl (6.0-8.3)
[2024-06-15 05:43] LABS: BUN Creatinine Ratio 26.7 (10-20)
--- NOTE | 2024-06-15 09:03 | Ultrasound Report ---
RENAL ULTRASOUND CLINICAL HISTORY: Acute renal failure. COMPARISON STUDY: CT of the abdomen and pelvis June 07, 2024 MRI of the abdomen June 08, 2024. TECHNIQUE: Sonography of the kidneys and the urinary bladder was performed. FINDINGS: The right kidney measures 15.5 cm in maximal dimension and the left measures 16.3 cm. There is no hydronephrosis. No calculi or solid renal lesions are identified. 4.1 cm anechoic right lower pole renal lesion represents a cyst. Moderate ascites is incidentally noted. The liver is echogenic. Bladder is collapsed, containing a [place]farlane. IMPRESSION: 1. No hydronephrosis. 2. 4.1 cm right lower pole renal cyst. ACT 112: Negative or not required by law. Electronically signed by: Fei Wallace M.D. 06/15/2024 9:01 AM
[2024-06-15] MEDS: LACTULOSE SYRUP 30 GM/45 ML UDP PO SCH (09:34)
--- NOTE | 2024-06-15 11:52 | Anesthesiology Consultation ---
Date of Service June 15, 2024 Assessment & Plan Chart Review Chart Review: Acceptable Risk for Surgery and Patient NOT seen in Pre Admission Testing Consults Requested none History Surgery Operation Date: 06/15/24 17:10 Proposed Procedures p Esophagogastroduodenoscopy Dr. Chew - Dannielle Chew Jr, MD Height/Weight Height: 6 ft 3 in Weight: 135.652 kg Allergies Allergy/AdvReac Type Severity Reaction Status Date / Time No Known Allergies Allergy Verified 06/07/24 18:16 Medications Home Medications Medication Instructions Recorded Confirmed Last Taken cholecalciferol (vitamin D3) 25 0 mcg PO DAILY 06/07/24 06/07/24 06/07/24 mcg (1,000 unit) capsule (Vitamin D3) cyanocobalamin (vitamin B-12) 0 mcg PO DAILY 06/07/24 06/07/24 06/07/24 1,000 mcg tablet (Vitamin B-12) empagliflozin 10 mg tablet 10 mg PO DAILY 06/07/24 06/07/24 06/07/24 (Jardiance) folic acid 400 mcg tablet 400 mcg PO DAILY 06/07/24 06/07/24 06/07/24 loratadine 10 mg tablet 10 mg PO DAILY 06/07/24 06/07/24 06/07/24 losartan 100 mg tablet 100 mg PO DAILY 06/07/24 06/07/24 06/07/24 omeprazole 40 mg capsule,delayed 40 mg PO DAILY 06/07/24 06/07/24 06/07/24 release Active Medications Generic Name Dose Route Start Last Admin Trade Name Freq PRN Reason Stop Dose Admin Cyanocobalamin 500 mcg 06/08/24 09:00 06/15/24 09:35 Cyanocobalamin (B-12) 500 Mcg Tablet PO 07/08/24 08:59 500 mcg DAILY KALA Administration Folic Acid 1 mg 06/13/24 09:00 06/15/24 09:35 Folic Acid 1 Mg Tab PO 07/13/24 08:59 1 mg DAILY KALA Administration Ceftriaxone Sodium 2,000 mg in 50 mls @ 100 mls/hr 06/09/24 17:30 06/14/24 18:07 Rocephin IV 06/19/24 17:29 Infused Q24H KALA Infusion Octreotide Acetate 500 mcg/ 100.5 mls @ 10.05 mls/hr 06/09/24 19:30 06/15/24 08:57 Sodium Chloride IV 07/09/24 19:29 50.25 mcg/hr .Q10H KALA 10.1 mls/hr Administration 50 MCG/HR Albumin Human 12.5 gm in 50 mls @ 50 mls/hr 06/14/24 09:00 06/15/24 10:47 Albumin 25% IV 06/17/24 08:59 Infused TID KALA Infusion Lactulose 30 gm 06/15/24 09:00 06/15/24 09:34 Lactulose Syrup 30 Gm/45 Ml Udp PO 07/15/24 08:59 30 gm DAILY KALA Administration Loratadine 10 mg 06/08/24 09:00 06/15/24 09:35 Loratadine 10 Mg Tab PO 07/08/24 08:59 10 mg DAILY KALA Administration Lorazepam 1 mg 06/07/24 18:14 06/07/24 20:54 Lorazepam 2 Mg/1 Ml Vial IV 07/07/24 18:13 1 mg UD PRN Administration EtOH Withdrawal AWSS Score 6,7 Protocol Melatonin 6 mg 06/07/24 20:28 06/14/24 21:14 Melatonin 3 Mg Tab PO 07/07/24 20:27 6 mg HS PRN Administration Sleep Midodrine 10 mg 06/09/24 21:00 06/15/24 09:35 Midodrine Hcl 10 Mg Tab PO 07/09/24 20:59 10 mg TID KALA Administration Multivitamins 1 tab 06/08/24 09:00 06/15/24 09:35 Multivitamin Tab PO 07/08/24 08:59 1 tab QAM KALA Administration Pantoprazole Sodium 40 mg 06/12/24 21:00 06/15/24 09:35 Pantoprazole 40 Mg Tab PO 07/12/24 20:59 40 mg BID KALA Administration Sodium Chloride 1 gm 06/08/24 21:00 06/15/24 09:35 Sodium Chloride 1 Gm Tablet PO 07/08/24 20:59 1 gm BID KALA Administration Thiamine HCl 200 mg 06/13/24 09:00 06/15/24 09:35 Thiamine Hcl 100 Mg Tab PO 07/13/24 08:59 200 mg DAILY KALA Administration Vitamin D 25 mcg 06/08/24 09:00 06/15/24 09:35 Cholecalciferol 25 Mcg (1000 Units) Tab PO 07/08/24 08:59 25 mcg DAILY KALA Administration NPO Date Last Intake of Fluids: 06/15/24 Time Last Intake of Fluids: 10:00 Last Intake of Fluids Comment: sip w/ medication Date Last Intake of Solids: 06/14/24 Time Last Intake of Solids: 15:00 Social History Smoking Status: Never smoker Do You Dip or Chew Tobacco: No Hx Alcohol Use: Yes Hx Substance Use: No substance use type: does not use Physical Exam Vital Signs Last Vital Signs Temp 36.6 C 06/15/24 11:43 Pulse 75 06/15/24 11:43 Resp 18 06/15/24 11:43 BP 121/73 06/15/24 11:43 Pulse Ox 99 06/15/24 11:43 O2 Del Method Room Air 06/15/24 11:43 Testing Laboratory Results 06/15/24 04:50 06/15/24 04:50 PT 15.1 Seconds (9.0-12.0) H 06/15/24 04:50 INR 1.4 (0.9-1.1) H 06/15/24 04:50 Urine Color Dark Yellow 06/14/24 18:22 Urine Appearance Cloudy (Clear) A 06/14/24 18:22 Urine pH 5.5 (4.5-7.5) 06/14/24 18:22 Ur Specific [place] 1.015 (1.000-1.030) 06/14/24 18:22 Urine Protein 1+ (Negative) H 06/14/24 18:22 Urine Glucose (UA) Negative (Negative) 06/14/24 18:22 Urine Ketones Negative (Negative) 06/14/24 18:22 Urine Nitrite Positive (Negative) A 06/14/24 18:22 Ur Leukocyte Esterase 2+ (Negative) H 06/14/24 18:22 Urine WBC (Auto) 6-10 /hpf (0-5) H 06/14/24 18:22 Urine RBC (Auto) >20 /hpf (0-2) H 06/14/24 18:22 U Hyaline Cast (Auto) 11-20 /lpf (0-2) H 06/14/24 18:22 U Epithel Cells (Auto) 0-2 /hpf (0-2) 06/14/24 18:22 Urine Bacteria (Auto) None Seen (None Seen) 06/14/24 18:22 Urine RBC 3-5 /hpf (0-2) H 06/07/24 16:45 Urine WBC 0-5 /hpf (0-5) 06/07/24 16:45 Ur Epithelial Cells 3-5 /hpf (0-2) H 06/07/24 16:45 Blood Type O Positive 06/14/24 07:32 Antibody Screen NEGATIVE 06/14/24 07:32 06/15/24 06/15/24 06/15/24 11:17 10:12 07:42 POC Glucose 141 H 126 H 84
--- NOTE | 2024-06-15 11:58 | History & Physical Report ---
Date of Service June 15, 2024 Assessment & Plan (1) Anemia: Plan: 53 year old man with anemia. Procedure and risks for eGD discussed. He agrees Admission and Anticipated Discharge Date Admission Date: June 07, 2024 History of Present Illness Chief Complaint: melena Primary Care Provider: Jeny Marte MD 53 year old man admitted with acute alcoholic hepatitis has had persistent melena. He is here for EGD Allergies Allergy/AdvReac Type Severity Reaction Status Date / Time No Known Allergies Allergy Verified 06/07/24 18:16 Home Medications Medication Instructions Recorded Confirmed Type cholecalciferol (vitamin D3) 25 0 mcg PO DAILY 06/07/24 06/07/24 History mcg (1,000 unit) capsule (Vitamin D3) cyanocobalamin (vitamin B-12) 0 mcg PO DAILY 06/07/24 06/07/24 History 1,000 mcg tablet (Vitamin B-12) empagliflozin 10 mg tablet 10 mg PO DAILY 06/07/24 06/07/24 History (Jardiance) folic acid 400 mcg tablet 400 mcg PO DAILY 06/07/24 06/07/24 History loratadine 10 mg tablet 10 mg PO DAILY 06/07/24 06/07/24 History losartan 100 mg tablet 100 mg PO DAILY 06/07/24 06/07/24 History omeprazole 40 mg capsule,delayed 40 mg PO DAILY 06/07/24 06/07/24 History release Past Med/Surg History Problem List (Updated 06/14/24 @ 09:20 by Dannielle Chew Jr, MD) Anemia Hepatorenal syndrome (Acute) Spontaneous bacterial peritonitis (Acute) Elevated troponin Elevated serum creatinine Transaminitis Hyponatremia Alcohol use disorder, severe, dependence Jaundice Alcoholic hepatitis with ascites Social History (Updated 06/08/24 @ 10:14 by Dannielle Chew Jr, MD) Smoking Status: Never smoker Do You Dip or Chew Tobacco: No; Hx Alcohol Use: Yes Hx Substance Use: No Preferred Language: Mohawk Communication Ability: Effective Hand Sprayer Required: No Beliefs That Will Affect Care: None Current Living Situation: Significant Other Current Living Situation Comment: with girlfriend Other Information That Helps Us Care for You: No Feels Safe at Home: Yes Safety Concerns: Feels Safe At This Time Assistive Devices: None Physical Exam Constitutional: WD/WN, vitals as above Respiratory: normal respiratory effort, lungs clear to auscultation Cardiovascular: RRR, no murmur, no edema Gastrointestinal (Abdomen): normal bowel sounds, soft, nontender, no hepatosplenomegaly ASA Classification ASA ASA3 Results & Data Vital Signs (Past 12 Hours) Vital Signs Temp Pulse Pulse Resp BP BP Pulse Ox 06/15/24 11:43 36.6 C 75 18 121/73 99 06/15/24 08:00 36.6 C 77 18 118/73 124/66 96 06/15/24 06:13 76 06/15/24 03:14 36.7 C 71 17 116/69 98 O2 Del Method 06/15/24 11:43 Room Air 06/15/24 08:00 Room Air 06/15/24 06:13 06/15/24 03:14 Room Air
--- NOTE | 2024-06-15 12:23 | Communication Note ---
Date of Service: June 15, 2024 EGD confirms non bleeding esophageal varices. Distal stomach involved with numerous polyps with inflammatory centers. There was no blood in UGI tract at all. I would treat these nodules like ulcers and I do suspect they were the cause of his slow blood loss.
--- NOTE | 2024-06-15 12:23 | GI REPORT ---
[facility] Patient: RADHA WEEKS : 1970 Sex at : Male Age: 53 Years Procedure: Upper GI endoscopy Date: 06/15/2024 Attending Physician: Dannielle Chew MD Referring MD: Ramakrishna Motley Indications: - Melena Medications: - Monitored Anesthesia Care - Propofol per Anesthesia - See the Anesthesia note for documentation of the administered medications Complications: - No immediate complications. Estimated Blood Loss: - Estimated blood loss: None. Procedure: - ASA Grade Assessment: III - A patient with severe systemic disease. - The egd scope was introduced through the mouth and advanced to the second part of the duodenum. - The upper GI endoscopy was accomplished without difficulty. - The patient tolerated the procedure well. Findings: - Grade II varices were found in the middle third of the esophagus and in the lower third of the esophagus. They were medium in size. The distal esophagus did not have any varices. There was no blood and no stigmata of hemorrhage. - Multiple medium mucosal papules (nodules) with no bleeding and no stigmata of recent bleeding were found in the gastric antrum. The nodules were Shaye classification IIa (superficial, elevated). Each nodule had an inflammatory appearing tip to it. There was no bleeding and there was no blood in the stomac. - The exam of the stomach was otherwise normal. - The examined duodenum was normal. Impression: - Grade II esophageal varices. - Multiple mucosal papules (nodules) found in the stomach. - Normal examined duodenum. - No specimens collected. Recommendation: - Return patient to [facility] care. Procedure Code(s): - 83814, Esophagogastroduodenoscopy, flexible, transoral; diagnostic, including collection of specimen(s) by brushing or washing, when performed (separate procedure) Diagnosis Code(s): - K92.1, Melena (includes Hematochezia) - I85.00, Esophageal varices without bleeding CPT(R) - 2023 copyright [employer]. All Rights Reserved. The CPT codes, CCI edits and ICD codes generated are intended as suggestions and were generated based on input data. These codes are preliminary and upon hand cementer review may be revised to meet current compliance and payer requirements. The provider is responsible for the final determination of appropriate codes, and modifiers. Dr. Dannielle Chew MD This document has been electronically signed. Note Initiated:06/15/2024 Note Completed:06/15/2024 12:22 PM [email or web address]\Results\[email or web address]\[id number]
--- NOTE | 2024-06-15 12:30 | Hospitalist Progress Note ---
Date of Service June 15, 2024 Assessment & Plan (1) Hepatorenal syndrome: (2) Elevated troponin: (3) Spontaneous bacterial peritonitis: (4) Elevated serum creatinine: (5) Transaminitis: (6) Hyponatremia: (7) Alcohol use disorder, severe, dependence: (8) Jaundice: (9) Alcoholic hepatitis with ascites: Plan 53 yo male PMHx T2DM, HTN, GERD and severe alcohol use disorder admitted for progressive jaundice secondary to hyperbilirubinemia and acute alcoholic hepatitis. #Anemia -Positive stool occult blood, presence of bright red rectal bleeding for 1.5 months - Has required 3 units of transfusion throughout this hospital stay. Endoscopic workup today. Fortunately today hemodynamics are good and hemoglobin is 7.5 #Spontaneous Bacterial Peritonitis -WBC paracentesis 983, with 61% neutrophils (neutrophil count ~600) - on ceftriaxonewould warrant secondary prophylaxis after treatmentand given the complexity of his situation including the renal failure, for now I think I would favor keeping him on the ceftriaxone rather than switching to an oral quinolone for prophylaxis at least during this acute and dynamic phase of illness -Prophylactic Abx needed to prevent recurrence will be required at discharge #Hepatorenal Syndrome - acute renal failure probably multifactorialurine studies still suggesting a prerenal state which is concerning for hepatorenal physiology. Anemia almost ce rtainly contributing as well. Keeping hemoglobin adequate, continue octreotide albumin and midodrine, fluid boluses from time to time. No acute indications for dialysis, fortunately potassium is okay #Hepatic Encephalopathy -Continue lactulose titrated down to daily to minimize fluid loss with diarrhea -Ammonia levels unable to be obtained due to degree of icterus #Hyperkalemia (resolved) - has resolved #Alcohol Withdrawal/EtOH Use Disorder - alcohol withdrawal resolved -continue daily PO thiamine and folate #Acute Alcoholic Hepatitis -MELD Score: 36, INR 1.4 on 06/14 -Significant ascites s/p paracentesis #Hyponatremia -In setting of poor solute intake, beer-potomania, and fluid overload from cirrhosis/ascites - delicate balance, continue to track #Severe Malnutrition -Severe malnutrition prior to admission -Started on tube feeding with Peptamen via NG, however NG tube removed overnight on 06/12 -Encouraged PO intake, if not getting adequate intake we may need to re-insert NG tube for nutrition #Hepatic Mass -CT demonstrates possible liver lesion, patient could not tolerate MRI -paracentesis w/ cytology -AFP level: 4, no elevation -otherwise, liver biopsy of the mass #Troponin elevation (resolved) -Troponin of 40.7 on admission, likely 2/2 metabolic demand -Echo showed normal cardiac function, LV EF of 60-65% Diet: Carb conscious/DM 2, NPO at midnight VTE Prophylaxis: Contraindicated due to anemia Code Status: Full Code Admission and Anticipated Discharge Date Admission Date: June 07, 2024 Supervising Physician Co-Signing Physician Notes Acute alcoholic hepatitis with jaundice, concern for cirrhosis - bili improving, INR overall stable. still quite guarded prognosis. Cr rising - continue albumin/midodrine/octreotide- also (see below w JARAD) suspicious that the renal function is multifactorial w septic physiology and prerenal/ATN at play as well. Altered mental statusprobably multifactorial - EtOH withdrawal, liver failure, hepatic encephalopathy --> using lactulose Mental status improved nicely and has stayed that way. Continue lactulosetitrate as needed. improved overall and mentation has stayed good for days. can't actually check ammonia due to icteric blood. worsening leukocytosis- -known SBP. no other s/s new infection. no fever. suspect demargination. CRP reassuring for context; procal, with hindsight, likely was going to be spuriously elevated due to Cr. continue ceftriaxone - se above, while he'll warrant chronic SBP proph i would favor keeping ceftriaxone for now, vigilance for other infections (none now) trend CRP as well Alcohol Abuse with acute withdrawal - Withdrawal appears to have largely passed. Continue thiamine and folate. Hyponatremia - continue to follow. worse - likely fluid shifting from blood/IVF fluids, ascites, ARF. Was likely polydipsia/poor solute intake as well as a degree of unfortunate ADH mediated from poor forward flow from hepatorenal and/or septic physiology. follow closely question of liver lesionAFP and cytology reassuring JARAD/ARF in the setting of above - worrisome for developing hepatorenal syndrome but also with worse Cr but improving bili/mentation - more suspicious the worsening ARF is multifactorial - with anemia now being the most recent prerenal culprit superimposed on multiple other previous prerenal culprits (hepatorenal, SBP/septic physiology, malnutrition) - high risk for ATN - urine lytes still most c/w prerenal - d/w pt that more fluid will be needed for renal perfusion, but that more fluid unfortunatley will likely worsen ascites SBP - on ceftriaxone. see above - will continue for now it's possible that all the findings concerning for hepatorenal are "just" due to septic physiology from this, see above DMII - hold jardiance, losartan 2/2 JARAD, glucose control remains acceptable blood in stool with acute blood loss anemiaEGD today. if negative, could just be oozing from hemorrhoids. Hgb finally more stable today after needing 3 units PRBC transfusion over last few days DVT proph - pharmacologic contraindicated due to bleeding. mechanical of dubious benefit. ambulation is increasing follow PO intake - he had NG removed - discussed if po intake still poor may need to replace - but seems to be reasonable (asked nursing to follow this too) otherwise as above Subjective Feels okay. No complaints. Just feels a little bit tired. For EGD later this morning. Review of Systems Review of Systems: All systems reviewed & are unremarkable except as noted in HPI & below Physical Exam Physical Exam: In general he is awake and alert oriented pleasant somewhat fatigued but not a lot different than the last 2 days. Markedly jaundiced but no distress. HEENT normocephalic atraumatic mucous membranes moist notable scleral icterus. Abdomen appears a bit more distended than previous days. Skin with diffuse jaundice. Breathing unlabored no accessory muscle use good effort. Mental status intactsomewhat concrete thinking and somewhat flat affect which has been his norm. Neuro without focal deficits. Results & Data Results & Data Vital Signs (Past 12 Hours) Vital Signs Temp Pulse Pulse Resp BP BP Pulse Ox 06/15/24 11:43 97.9 F 75 18 121/73 99 06/15/24 08:00 97.9 F 77 18 118/73 124/66 96 06/15/24 06:13 76 06/15/24 03:14 98.1 F 71 17 116/69 98 O2 Del Method 06/15/24 11:43 Room Air 06/15/24 08:00 Room Air 06/15/24 06:13 06/15/24 03:14 Room Air PG Care Time/CCT Total # of Minutes Spent Total Time Spent with Patient: Total time spent is greater than 50% in coordination of care (as documented) at patient's floor/unit and/or counseling patient: Coding Level of Care Code 94211 SUB INP/OBS CARE MIN Diagnoses Hepatorenal syndrome K76.7 Elevated troponin R79.89 Spontaneous bacterial peritonitis K65.2 Elevated serum creatinine R79.89 Transaminitis R74.01 Hyponatremia E87.1 Alcohol use disorder, severe, dependence F10.20 Jaundice R17 Alcoholic hepatitis with ascites K70.11
--- NOTE | 2024-06-15 15:00 | Anesthesiology Progress Note ---
Date of Service June 15, 2024 Anesthesia Post Procedure Vital Signs Vital Signs: Temp Pulse Pulse Pulse Resp BP BP 06/15/24 14:57 36.7 C 72 16 115/68 06/15/24 14:04 70 06/15/24 13:34 36.5 C 71 18 115/70 06/15/24 13:21 36.4 C L 75 16 110/66 06/15/24 12:58 75 18 111/64 06/15/24 12:40 78 18 113/61 06/15/24 12:25 80 18 116/61 06/15/24 11:43 36.6 C 75 18 121/73 06/15/24 08:00 36.6 C 77 18 118/73 124/66 06/15/24 06:13 76 06/15/24 03:14 36.7 C 71 17 116/69 06/14/24 23:46 36.4 C L 76 17 128/72 06/14/24 23:25 75 06/14/24 19:53 36.4 C L 68 19 112/71 06/14/24 15:52 36.5 C 72 18 108/69 Pulse Ox O2 Del Method 06/15/24 14:57 98 Room Air 06/15/24 14:04 06/15/24 13:34 98 Room Air 06/15/24 13:21 99 Room Air 06/15/24 12:58 99 Room Air 06/15/24 12:40 99 Room Air 06/15/24 12:25 100 Room Air 06/15/24 11:43 99 Room Air 06/15/24 08:00 96 Room Air 06/15/24 06:13 06/15/24 03:14 98 Room Air 06/14/24 23:46 99 Room Air 06/14/24 23:25 06/14/24 19:53 99 Room Air 06/14/24 15:52 Pain Intensity Lower Back: Pain Intensity: 8 Transfer of Care Handoff Completed per policy Notes Mental Status: alert / awake / arousable Patient Amnestic to Procedure: Yes Nausea / Vomiting: adequately controlled Pain: adequately controlled Airway Patency, RR, SpO2: stable & adequate BP & HR: stable & adequate Hydration State: stable & adequate Anesthetic Complications: no major complications apparent
[2024-06-15 16:28] LABS: Hematocrit (blood only) 22.5 % (42.0-52.0); Hemoglobin 7.9 g/dl (14.0-18.0); Mean Corpuscular Hemoglobin 34.5 pg (25.0-34.0); Mean Corpuscular Hgb Conc 35.1 g/dL (32.0-36.0); Mean Corpuscular Volume 98.3 fL (80.0-100.0); Mean Platelet Volume 10.4 fL (9.4-12.4); Platelet Count 241 K/uL (130-400); RDW Coefficient of Variation 20.4 % (11.5-14.5); RDW Standard Deviation 72.8 fL (36.4-46.3); Red Blood Count 2.29 M/uL (4.70-6.10); White Blood Count 16.32 K/ul (4.8-10.8)
[2024-06-15 16:46] LABS: Basophils # (auto) 0.18 K/uL (0.00-0.20); Basophils % (auto) 1.1 %; Eosinophils # (auto) 0.31 K/uL (0.00-0.50); Eosinophils % (auto) 1.9 %; Immature Granulocytes # (auto) 0.88 K/uL (0.01-0.20); Immature Granulocytes % (auto) 5.4 %; Lymphocytes # (auto) 1.03 K/uL (1.20-3.40); Lymphocytes % (auto) 6.3 %; Monocytes # (auto) 2.28 K/uL (0.11-0.59); Neutrophils # (auto) 11.64 K/uL (1.40-6.50); Neutrophils % (auto) 71.3 %; Polychromasia 2+
[2024-06-15 17:16] LABS: Anion Gap 11 (3-11); Calcium 7.8 mg/dl (8.6-10.3); Carbon Dioxide 16 mmol/L (21-32); Chloride 97 mmol/L (98-107); Potassium 4.7 mmol/L (3.5-5.1); Sodium 124 mmol/L (136-145)
[2024-06-15 17:23] LABS: Blood Urea Nitrogen 101 mg/dl (6-23)
[2024-06-15 17:24] LABS: Creatinine Clr Calc Pharmacy 34.4 ml/min; Glucose 154 mg/dl (70-99(Fasting))
[2024-06-15] MEDS: FAMOTIDINE 20 MG TAB PO SCH (20:53)
[2024-06-16] MEDS: PROPOFOL IV EMULSION 10 MG/ML 20 ML VIAL IV ONE (07:49)
[2024-06-16] MEDS: LIDOCAINE 2% 2 ML VIAL/AMP(20MG/ML) INFIL ONE (07:49)
[2024-06-16] MEDS: SODIUM CHLORIDE 0.9% 500 ML IV ONE (07:49)
[2024-06-16] MEDS: BENZOCAINE/TETRACAIN/BUTAM 50 APPLN/5 GM CAN EXT ONE (07:50)
[2024-06-16 08:14] LABS: Basophils # (auto) 0.17 K/uL (0.00-0.20); Basophils % (auto) 1.2 %; Eosinophils # (auto) 0.29 K/uL (0.00-0.50); Eosinophils % (auto) 2.1 %; Hematocrit (blood only) 21.4 % (42.0-52.0); Hemoglobin 7.6 g/dl (14.0-18.0); Immature Granulocytes # (auto) 0.68 K/uL (0.01-0.20); Immature Granulocytes % (auto) 4.9 %; Lymphocytes # (auto) 0.86 K/uL (1.20-3.40); Lymphocytes % (auto) 6.2 %; Mean Corpuscular Hemoglobin 35.2 pg (25.0-34.0); Mean Corpuscular Hgb Conc 35.5 g/dL (32.0-36.0); Mean Corpuscular Volume 99.1 fL (80.0-100.0); Mean Platelet Volume 10.2 fL (9.4-12.4); Monocytes # (auto) 1.91 K/uL (0.11-0.59); Monocytes % (auto) 13.9 %; Neutrophils # (auto) 9.88 K/uL (1.40-6.50); Neutrophils % (auto) 71.7 %; Platelet Count 208 K/uL (130-400); RDW Coefficient of Variation 20.1 % (11.5-14.5); RDW Standard Deviation 72.1 fL (36.4-46.3); Red Blood Count 2.16 M/uL (4.70-6.10); White Blood Count 13.79 K/ul (4.8-10.8)
[2024-06-16 08:40] LABS: INR 1.4 (0.9-1.1)
[2024-06-16 08:51] LABS: Acanthocytes 1+; Polychromasia 1+; Target Cells 1+
[2024-06-16] MEDS: cephALEXin 500 MG CAP PO SCH (09:06)
[2024-06-16 09:20] LABS: Blood Urea Nitrogen 104 mg/dl (6-23); Magnesium 2.9 mg/dl (1.7-2.4)
[2024-06-16 09:21] LABS: Calcium 7.8 mg/dl (8.6-10.3); Carbon Dioxide 17 mmol/L (21-32); Chloride 99 mmol/L (98-107); Creatinine Clr Calc Pharmacy 35.5 ml/min; Glucose 127 mg/dl (70-99(Fasting)); Potassium 4.3 mmol/L (3.5-5.1); Sodium 125 mmol/L (136-145)
[2024-06-16 09:41] LABS: BUN Creatinine Ratio 28.6 (10-20)
[2024-06-16 09:42] LABS: Alanine Aminotransferase 72 U/L (7-52); Albumin Globulin Ratio 1.6 (0.9-2); Anion Gap 9 (3-11); Aspartate Aminotransferase 158 U/L (13-39); Bilirubin,Total 33.7 mg/dl (0.2-1.0); Globulin 1.9 gm/dl (2.5-4.0); Phosphorus 5.2 mg/dl (2.5-4.9); Total Protein 4.9 gm/dl (6.0-8.3)
[2024-06-16 14:27] LABS: Hematocrit (blood only) 21.9 % (42.0-52.0); Hemoglobin 7.8 g/dl (14.0-18.0)
--- NOTE | 2024-06-16 15:29 | Hospitalist Progress Note ---
Date of Service June 16, 2024 Assessment & Plan (1) Hepatorenal syndrome: Plan: Possible. Serum osmolarity is markedly elevated. IV fluids ordered. Continue daily labs. Monitor urine output. (2) Elevated troponin: Plan: No evidence of acute coronary syndrome. (3) Spontaneous bacterial peritonitis: Plan: Suspected on admission. Treated with intravenous Rocephin. Parenteral antibiotics have been switched to oral cephalexin today, June 16 (4) Elevated serum creatinine: Plan: Consistent with acute renal failure. No obstruction seen on ultrasound. IV fluids ordered. Monitor urine output. Serial labs (5) Transaminitis: Plan: Liver enzymes are elevated due to alcoholic hepatitis present on admission. (6) Hyponatremia: Plan: Sodium is low despite elevated serum osmolarity. Continue sodium replacement therapy. Serial labs (7) Alcohol use disorder, severe, dependence: Plan: Most likely cause of hepatitis. Alcohol cessation recommended. June protocol. (8) Jaundice: Plan: Due to suspected alcohol induced hepatitis. (9) Alcoholic hepatitis with ascites: Plan: Alcohol cessation highly recommended. The patient underwent paracentesis earlier this admission. Appreciate GI consultation and recommendations. 15 mm hepatic lesion seen on imaging will need outpatient follow-up (10) Hyperkalemia: Plan: Present on admission. Now resolved. ARB therapy has been discontinued. Plan The patient continues to have lower GI bleeding and anemia. GI service has been informed. Hopefully colonoscopy can be accomplished this admission. Physical therapy assessment recommends rehab placement at discharge. Occupational Therapy assessment pending Admission and Anticipated Discharge Date Admission Date: June 07, 2024 Subjective Alert and oriented. Unfortunately, he is having intermittent bloody stool possibly of diverticular etiology. Earlier this admission he underwent EGD with evidence of esophageal varices with no active bleeding. Current symptoms indicate either diverticular bleeding or possibly internal hemorrhoidal bleeding. GI service has been notified hopefully for colonoscopy this admission. Hemoglobin and hematocrit will be followed every 6 hours for now. He underwent paracentesis earlier this admission and has been treated with intravenous Rocephin which is now switched to oral Keflex therapy. He has received 3 units packed red blood cells to date. Current hemoglobin 7.6. Renal ultrasound is negative for any evidence of obstruction. Serum osmolarity elevated at 310. Physical therapy assessment recommends rehab placement at discharge. OT evaluation pending. Review of Systems 2 Review of Systems: Constitutionalno fever or chills ENTno blurred vision, no double vision, no epistaxis, no sore throat Respiratoryno cough, no wheezing, no shortness of breath Cardiacno palpitations, no chest pain, no syncope Quinten nausea, vomiting, melena. Intermittent bloody stools GUno urinary retention, no urinary incontinence, no dysuria, no hematuria Musculoskeletalno joint pain, no muscle tenderness Skinanicteric. Scattered ecchymoses on all 4 extremities. Neurono isolated weakness, no paresthesia Psychno depression, no anxiety Physical Exam 2 Physical Exam: General-alert and oriented x3, no fever, no chills HEENT-head atraumatic and normocephalic, pupils equal and reactive to light, scleral icterus noted, extraocular muscles intact Neck-no lymphadenopathy or thyromegaly, trachea midline Chest-clear to auscultation. No rales, wheezing or rhonchi Cardiac-regular rate and rhythm, normal S1 and S2 Abdomen-normal bowel sounds. Mildly distended with ascites. No rebound or guarding. No masses Skin -the patient is jaundiced. Scattered bruising noted on all extremities Extremities-no cyanosis. No significant peripheral edema Neuro-cranial nerves II through XII intact, motor and sensory function within normal limits, strength symmetrical, no focal deficits Psych-normal affect, normal mood Results & Data Results & Data Vital Signs (Past 12 Hours) Vital Signs Temp Pulse Pulse Resp BP BP Pulse Ox 06/16/24 10:37 36.6 C 75 17 113/68 98 06/16/24 10:10 72 06/16/24 07:05 36.4 C L 77 20 110/64 97 O2 Del Method 06/16/24 10:37 Room Air 06/16/24 10:10 06/16/24 07:05 Room Air Laboratory Results 06/16/24 14:07 06/16/24 07:10 PG Care Time/CCT Total # of Minutes Spent Total Time Spent with Patient: Total time spent is greater than 50% in coordination of care (as documented) at patient's floor/unit and/or counseling patient: Coding Level of Care Code 86622 SUB INP/OBS CARE 3/50MIN Diagnoses Hepatorenal syndrome K76.7 Elevated troponin R79.89 Spontaneous bacterial peritonitis K65.2 Elevated serum creatinine R79.89 Transaminitis R74.01 Hyponatremia E87.1 Alcohol use disorder, severe, dependence F10.20 Jaundice R17 Alcoholic hepatitis with ascites K70.11 Hyperkalemia E87.5
--- NOTE | 2024-06-16 15:39 | Gastroenterology Progress Note ---
Date of Service June 16, 2024 Assessment & Plan (1) Anemia: Plan: I had a long discussion with patient and his . I do not think he would do well with prep and anesthesia would not do normal sedation for EGD--only very light. His H/H are stable and his description of the bleeding seems to be hemorrhoidal. After discussion we have decided to revisit things after tomorrows hemoglobin returns. He and his are leaning away from trying colonoscopy unless it is an emergent issue. I do think he needs colonoscopy at some point but possibly as an outpatient after recovery from acute illness Admission and Anticipated Discharge Date Admission Date: June 07, 2024 Subjective Had brown loose stool with some bright red blood today. He says that happens periodically and was happening at home. H/H are stable over the past two days. No more melenic stool Physical Exam 2 Physical Exam: Still markedly icteric Constitutional: + ill appearing Results & Data Vital Signs (Past 12 Hours) Vital Signs Temp Pulse Pulse Resp BP BP Pulse Ox 06/16/24 15:25 36.2 C L 75 18 105/63 97 06/16/24 10:37 36.6 C 75 17 113/68 98 06/16/24 10:10 72 06/16/24 07:05 36.4 C L 77 20 110/64 97 O2 Del Method 06/16/24 15:25 Room Air 06/16/24 10:37 Room Air 06/16/24 10:10 06/16/24 07:05 Room Air
[2024-06-16] MEDS: SODIUM CHLORIDE 0.9% 1,000 ML IV SCH (15:56)
[2024-06-16 20:36] LABS: Hematocrit (blood only) 20.7 % (42.0-52.0); Hemoglobin 7.2 g/dl (14.0-18.0)
[2024-06-17 00:57] LABS: Basophils # (auto) 0.18 K/uL (0.00-0.20); Basophils % (auto) 1.2 %; Eosinophils # (auto) 0.31 K/uL (0.00-0.50); Eosinophils % (auto) 2.1 %; Hematocrit (blood only) 21.7 % (42.0-52.0); Hemoglobin 7.6 g/dl (14.0-18.0); Immature Granulocytes # (auto) 0.64 K/uL (0.01-0.20); Immature Granulocytes % (auto) 4.4 %; Lymphocytes # (auto) 0.89 K/uL (1.20-3.40); Lymphocytes % (auto) 6.2 %; Mean Corpuscular Hemoglobin 34.7 pg (25.0-34.0); Mean Corpuscular Volume 99.1 fL (80.0-100.0); Mean Platelet Volume 10.3 fL (9.4-12.4); Monocytes # (auto) 2.11 K/uL (0.11-0.59); Monocytes % (auto) 14.6 %; Neutrophils # (auto) 10.32 K/uL (1.40-6.50); Neutrophils % (auto) 71.5 %; Platelet Count 232 K/uL (130-400); RDW Coefficient of Variation 19.9 % (11.5-14.5); RDW Standard Deviation 71.7 fL (36.4-46.3); Red Blood Count 2.19 M/uL (4.70-6.10); White Blood Count 14.45 K/ul (4.8-10.8)
[2024-06-17 01:32] LABS: Acanthocytes 1+; Echinocytes 2+; Polychromasia 1+
[2024-06-17 09:38] LABS: Hemoglobin 7.7 g/dl (14.0-18.0)
[2024-06-17 10:06] LABS: Alanine Aminotransferase 81 U/L (7-52); Albumin Globulin Ratio 1.6 (0.9-2); Albumin Level 3.1 gm/dl (3.4-5.0); Anion Gap 10 (3-11); Aspartate Aminotransferase 174 U/L (13-39); Calcium 7.8 mg/dl (8.6-10.3); Carbon Dioxide 17 mmol/L (21-32); Chloride 100 mmol/L (98-107); Creatinine Clr Calc Pharmacy 37.5 ml/min; Globulin 1.9 gm/dl (2.5-4.0); Glucose 139 mg/dl (70-99(Fasting)); Potassium 3.9 mmol/L (3.5-5.1); Sodium 127 mmol/L (136-145)
[2024-06-17 10:19] LABS: Bilirubin,Total 32.2 mg/dl (0.2-1.0)
--- NOTE | 2024-06-17 12:34 | Gastroenterology Progress Note ---
Date of Service June 17, 2024 Assessment & Plan (1) Anemia: Plan: Bleeding seems to have slowed down. Would continue observation. Plan colonoscopy electively in the future unless more urgent matters develop Admission and Anticipated Discharge Date Admission Date: June 07, 2024 Subjective Feeling better. No blood other than staining the bedsheets. H/H are stable Physical Exam Physical Exam: Markedly icteric but looking stronger Constitutional: WD/WN, vitals as above Results & Data Vital Signs (Past 12 Hours) Vital Signs Temp Pulse Pulse Resp BP Pulse Ox O2 Del Method 06/17/24 10:53 36.4 C L 74 17 107/65 99 Room Air 06/17/24 08:00 72 06/17/24 07:28 36.5 C 70 20 116/72 98 Room Air 06/17/24 04:22 36.6 C 81 16 113/79 99 Room Air
--- NOTE | 2024-06-17 14:20 | Hospitalist Progress Note ---
Date of Service June 17, 2024 Assessment & Plan (1) Hepatorenal syndrome: Plan: Possible. Serum osmolarity is markedly elevated. IV fluids continue. Continue daily labs. Monitor urine output. (2) Elevated troponin: Plan: No evidence of acute coronary syndrome. (3) Spontaneous bacterial peritonitis: Plan: Suspected on admission. Treated with intravenous Rocephin. Parenteral antibiotics have been switched to oral cephalexin on June 16 (4) Elevated serum creatinine: Plan: Consistent with acute renal failure. No obstruction seen on ultrasound. IV fluids seem to be helping. Creatinine is now downtrending. Monitor urine output. Serial labs (5) Transaminitis: Plan: Liver enzymes are elevated due to alcoholic hepatitis present on admission. Serial labs (6) Hyponatremia: Plan: Sodium is low despite elevated serum osmolarity but improving with IV fluids. Continue sodium replacement therapy. Serial labs (7) Alcohol use disorder, severe, dependence: Plan: Most likely cause of hepatitis. Alcohol cessation recommended. [facility] protocol. (8) Jaundice: Plan: Due to suspected alcohol induced hepatitis. (9) Alcoholic hepatitis with ascites: Plan: Alcohol cessation highly recommended. The patient underwent paracentesis earlier this admission. Appreciate GI consultation and recommendations. 15 mm hepatic lesion seen on imaging will need outpatient follow-up (10) Hyperkalemia: Plan: Present on admission. Now resolved. ARB therapy has been discontinued. Plan Hopeful discharge to [facility] [place], June 18 Admission and Anticipated Discharge Date Admission Date: June 07, 2024 Subjective Alert and oriented. No distress. Hemoglobin remained stable at 7.7. Creatinine is now trending downward to 3.4. Sodium improved to 127. Jardiance and losartan remain on hold. Physical therapy has recommended rehab placement. Hopefully he can go to [facility] tomorrow, June 18 Review of Systems 2 Review of Systems: Constitutionalno fever or chills ENTno blurred vision, no double vision, no epistaxis, no sore throat Respiratoryno cough, no wheezing, no shortness of breath Cardiacno palpitations, no chest pain, no syncope Quinten nausea, vomiting, melena. Intermittent bloody stools GUno urinary retention, no urinary incontinence, no dysuria, no hematuria Musculoskeletalno joint pain, no muscle tenderness Skinanicteric. Scattered ecchymoses on all 4 extremities. Neurono isolated weakness, no paresthesia Psychno depression, no anxiety Physical Exam 2 Physical Exam: General-alert and oriented x3, no fever, no chills HEENT-head atraumatic and normocephalic, pupils equal and reactive to light, scleral icterus noted, extraocular muscles intact Neck-no lymphadenopathy or thyromegaly, trachea midline Chest-clear to auscultation. No rales, wheezing or rhonchi Cardiac-regular rate and rhythm, normal S1 and S2 Abdomen-normal bowel sounds. Mildly distended with ascites. No rebound or guarding. No masses Skin -the patient is jaundiced. Scattered bruising noted on all extremities Extremities-no cyanosis. No significant peripheral edema Neuro-cranial nerves II through XII intact, motor and sensory function within normal limits, strength symmetrical, no focal deficits Psych-normal affect, normal mood Results & Data Results & Data Vital Signs (Past 12 Hours) Vital Signs Temp Pulse Pulse Resp BP Pulse Ox O2 Del Method 06/17/24 10:53 36.4 C L 74 17 107/65 99 Room Air 06/17/24 08:00 72 06/17/24 07:28 36.5 C 70 20 116/72 98 Room Air 06/17/24 04:22 36.6 C 81 16 113/79 99 Room Air Laboratory Results 06/17/24 09:17 06/17/24 09:17 PG Care Time/CCT Total # of Minutes Spent Total Time Spent with Patient: Total time spent is greater than 50% in coordination of care (as documented) at patient's floor/unit and/or counseling patient: Coding Level of Care Code 08416 SUB INP/OBS CARE 2/35MIN Diagnoses Hepatorenal syndrome K76.7 Elevated troponin R79.89 Spontaneous bacterial peritonitis K65.2 Elevated serum creatinine R79.89 Transaminitis R74.01 Hyponatremia E87.1 Alcohol use disorder, severe, dependence F10.20 Jaundice R17 Alcoholic hepatitis with ascites K70.11 Hyperkalemia E87.5
[2024-06-18 10:02] LABS: Basophils # (auto) 0.23 K/uL (0.00-0.20); Basophils % (auto) 1.5 %; Eosinophils # (auto) 0.23 K/uL (0.00-0.50); Eosinophils % (auto) 1.5 %; Hemoglobin 7.8 g/dl (14.0-18.0); Immature Granulocytes # (auto) 0.39 K/uL (0.01-0.20); Immature Granulocytes % (auto) 2.5 %; Lymphocytes # (auto) 0.78 K/uL (1.20-3.40); Mean Corpuscular Hemoglobin 35.1 pg (25.0-34.0); Mean Corpuscular Hgb Conc 35.5 g/dL (32.0-36.0); Mean Corpuscular Volume 99.1 fL (80.0-100.0); Mean Platelet Volume 10.2 fL (9.4-12.4); Monocytes # (auto) 1.63 K/uL (0.11-0.59); Monocytes % (auto) 10.4 %; Neutrophils # (auto) 12.35 K/uL (1.40-6.50); Neutrophils % (auto) 79.1 %; Platelet Count 243 K/uL (130-400); RDW Coefficient of Variation 19.8 % (11.5-14.5); RDW Standard Deviation 71.6 fL (36.4-46.3); Red Blood Count 2.22 M/uL (4.70-6.10); White Blood Count 15.61 K/ul (4.8-10.8)
[2024-06-18 10:30] LABS: Albumin Globulin Ratio 1.5 (0.9-2); Albumin Level 3.1 gm/dl (3.4-5.0); Bilirubin,Total 29.4 mg/dl (0.2-1.0); Calcium 7.9 mg/dl (8.6-10.3); Globulin 2.1 gm/dl (2.5-4.0); Total Protein 5.2 gm/dl (6.0-8.3)
[2024-06-18 10:31] LABS: BUN Creatinine Ratio 30.9 (10-20)
[2024-06-18 10:42] LABS: Echinocytes 1+
--- NOTE | 2024-06-18 15:15 | Hospitalist Progress Note ---
Date of Service June 18, 2024 Assessment & Plan (1) Hepatorenal syndrome: Plan: Possible. Serum osmolarity was checked and was markedly elevated. He was treated with IV fluids. Continue daily labs. Monitor urine output. (2) Elevated troponin: Plan: No evidence of acute coronary syndrome. (3) Spontaneous bacterial peritonitis: Plan: Suspected on admission. Treated with intravenous Rocephin. Parenteral antibiotics have been switched to oral cephalexin on June 16 (4) Elevated serum creatinine: Plan: Consistent with acute renal failure. No obstruction seen on ultrasound. He was treated with IV fluids. Creatinine is now slowly downtrending. Monitor urine output. Serial labs (5) Transaminitis: Plan: Liver enzymes are elevated due to alcoholic hepatitis present on admission. Serial labs (6) Hyponatremia: Plan: Sodium is low despite elevated serum osmolarity but improved with IV fluids. Continue sodium replacement therapy. Serial labs (7) Alcohol use disorder, severe, dependence: Plan: Most likely cause of hepatitis. Alcohol intake cessation recommended. [facility] protocol. (8) Jaundice: Plan: Due to suspected alcohol induced hepatitis. (9) Alcoholic hepatitis with ascites: Plan: Alcohol cessation highly recommended. The patient underwent paracentesis earlier this admission. Appreciate GI consultation and recommendations. 15 mm hepatic lesion seen on imaging will need outpatient follow-up (10) Hyperkalemia: Plan: Present on admission. Now resolved. ARB therapy has been discontinued. Plan Eventual discharge to [facility] when arrangements are finalized. He is medically stable for discharge Admission and Anticipated Discharge Date Admission Date: June 07, 2024 Subjective Alert and oriented. Fortunately, his hemoglobin remains stable and the rectal bleeding is intermittent and appears to be hemorrhoidal in nature. No indication for further transfusions at this time. Creatinine is trending down slowly, now 3.3. Sodium improved to 128. Awaiting placement at [facility] when final arrangements are made. He is medically stable for discharge. Review of Systems 2 Review of Systems: Constitutionalno fever or chills ENTno blurred vision, no double vision, no epistaxis, no sore throat Respiratoryno cough, no wheezing, no shortness of breath Cardiacno palpitations, no chest pain, no syncope Quinten nausea, vomiting, melena. Intermittent bloody stools GUno urinary retention, no urinary incontinence, no dysuria, no hematuria Musculoskeletalno joint pain, no muscle tenderness Skinjaundiced. Scattered ecchymoses on all 4 extremities. Neurono isolated weakness, no paresthesia Psychno depression, no anxiety Physical Exam 2 Physical Exam: General-alert and oriented x3, no fever, no chills HEENT-head atraumatic and normocephalic, pupils equal and reactive to light, scleral icterus noted, extraocular muscles intact Neck-no lymphadenopathy or thyromegaly, trachea midline Chest-clear to auscultation. No rales, wheezing or rhonchi Cardiac-regular rate and rhythm, normal S1 and S2 Abdomen-normal bowel sounds. Mildly distended with ascites. No rebound or guarding. No masses Skin -the patient is jaundiced. Scattered bruising noted on all extremities Extremities-no cyanosis. No significant peripheral edema Neuro-cranial nerves II through XII intact, motor and sensory function within normal limits, strength symmetrical, no focal deficits Psych-normal affect, normal mood Results & Data Results & Data Vital Signs (Past 12 Hours) Vital Signs Temp Pulse Pulse Resp BP BP Pulse Ox 06/18/24 14:09 76 06/18/24 10:58 36.4 C L 81 20 96/61 L 98 06/18/24 07:52 06/18/24 07:42 36.6 C 78 20 113/66 98 06/18/24 07:14 74 O2 Del Method 06/18/24 14:09 06/18/24 10:58 Room Air 06/18/24 07:52 Room Air 06/18/24 07:42 Room Air 06/18/24 07:14 Laboratory Results 06/18/24 09:47 06/18/24 09:47 PG Care Time/CCT Total # of Minutes Spent Total Time Spent with Patient: Total time spent is greater than 50% in coordination of care (as documented) at patient's floor/unit and/or counseling patient: Coding Level of Care Code 58352 SUB INP/OBS CARE 2/35MIN Diagnoses Hepatorenal syndrome K76.7 Elevated troponin R79.89 Spontaneous bacterial peritonitis K65.2 Elevated serum creatinine R79.89 Transaminitis R74.01 Hyponatremia E87.1 Alcohol use disorder, severe, dependence F10.20 Jaundice R17 Alcoholic hepatitis with ascites K70.11 Hyperkalemia E87.5
[2024-06-19 07:24] LABS: Basophils # (auto) 0.24 K/uL (0.00-0.20); Basophils % (auto) 1.3 %; Eosinophils # (auto) 0.26 K/uL (0.00-0.50); Eosinophils % (auto) 1.4 %; Hematocrit (blood only) 21.7 % (42.0-52.0); Hemoglobin 7.8 g/dl (14.0-18.0); Immature Granulocytes # (auto) 0.44 K/uL (0.01-0.20); Immature Granulocytes % (auto) 2.4 %; Lymphocytes # (auto) 0.97 K/uL (1.20-3.40); Lymphocytes % (auto) 5.3 %; Mean Corpuscular Hemoglobin 35.6 pg (25.0-34.0); Mean Corpuscular Hgb Conc 35.9 g/dL (32.0-36.0); Mean Corpuscular Volume 99.1 fL (80.0-100.0); Mean Platelet Volume 10.2 fL (9.4-12.4); Monocytes # (auto) 1.85 K/uL (0.11-0.59); Neutrophils # (auto) 14.67 K/uL (1.40-6.50); Neutrophils % (auto) 79.6 %; Platelet Count 259 K/uL (130-400); RDW Coefficient of Variation 19.4 % (11.5-14.5); RDW Standard Deviation 70.1 fL (36.4-46.3); Red Blood Count 2.19 M/uL (4.70-6.10); White Blood Count 18.43 K/ul (4.8-10.8)
[2024-06-19 07:56] LABS: Albumin Globulin Ratio 1.4 (0.9-2); Bilirubin,Total 28.2 mg/dl (0.2-1.0); Globulin 2.2 gm/dl (2.5-4.0); Total Protein 5.2 gm/dl (6.0-8.3)
[2024-06-19 08:04] LABS: Echinocytes 1+; Polychromasia 1+; Target Cells 1+
[2024-06-19 08:37] LABS: BUN Creatinine Ratio 31.8 (10-20)
--- NOTE | 2024-06-19 13:49 | Ultrasound Report ---
ULTRASOUND-GUIDED PARACENTESIS CLINICAL HISTORY: Ascites PROCEDURE: Procedure and risks were explained. Informed consent was obtained. A final timeout was com pleted. The abdomen was prepped and draped in sterile fashion. 1% lidocaine was utilized for skin ane sthesia. Utilizing ultrasound guidance, a 5 Khmer safety centesis catheter was advanced into the right lower quadrant pocket of ascites. Ultrasound images were obtained. A total of 3 L of sanguinous ascites flu id was removed with 1 L sent to the lab for analysis. The catheter was removed and Band-Aid applied. The patient tolerated the procedure well. Vital signs will be monitored postprocedure. IMPRESSION: Ultrasound-guided paracentesis as above. Performed, dictated, and signed by Pramod Rick PA-C; to be co-signed by Dr. Fei Wallace. Electronically signed by: Fei Wallace M.D. 06/19/2024 2:34 PM
--- NOTE | 2024-06-19 13:54 | Hospitalist Progress Note ---
Date of Service June 19, 2024 Assessment & Plan (1) Hepatorenal syndrome: Plan: Possible. Serum osmolarity was checked and was markedly elevated. He was treated with IV fluids. Continue daily labs. Monitor urine output. (2) Elevated troponin: Plan: No evidence of acute coronary syndrome. (3) Spontaneous bacterial peritonitis: Plan: Suspected on admission. Treated with intravenous Rocephin. Parenteral antibiotics have been switched to oral cephalexin on June 16 (4) Elevated serum creatinine: Plan: Consistent with acute renal failure. No obstruction seen on ultrasound. He was treated with IV fluids. Creatinine has decreased and has stabilized at 3.3. Monitor urine output. Serial labs (5) Transaminitis: Plan: Liver enzymes are elevated due to alcoholic hepatitis present on admission. Serial labs (6) Hyponatremia: Plan: Sodium is low despite elevated serum osmolarity but improved with IV fluids. Continue sodium replacement therapy. Serial labs (7) Alcohol use disorder, severe, dependence: Plan: Most likely cause of hepatitis. Alcohol intake cessation recommended. [facility] protocol. (8) Jaundice: Plan: Due to suspected alcohol induced hepatitis. (9) Alcoholic hepatitis with ascites: Plan: Alcohol cessation highly recommended. The patient underwent paracentesis earlier this admission and due to reaccumulation of ascitic fluid he will undergo therapeutic paracentesis again today, June 19.. Appreciate GI consultation and recommendations. 15 mm hepatic lesion seen on imaging will need outpatient follow-up (10) Hyperkalemia: Plan: Present on admission. Now resolved. ARB therapy has been discontinued. Plan Hopeful discharge to [facility] tomorrow, June 20 Admission and Anticipated Discharge Date Admission Date: June 07, 2024 Subjective Alert and oriented. Abdomen has become distended again with ascitic fluid. Another therapeutic paracentesis will be done today, June 19. Creatinine remained stable at 3.3. Sodium stable at 129. Hemoglobin stable at 7.9. Hopefully [facility] j[facility] Review of Systems 2 Review of Systems: Constitutionalno fever or chills ENTno blurred vision, no double vision, no epistaxis, no sore throat Respiratoryno cough, no wheezing, no shortness of breath Cardiacno palpitations, no chest pain, no syncope [place]uitnen nausea, vomiting, melena. Intermittent bloody stools have stopped. Abdomen is distended again GUno urinary retention, no urinary incontinence, no dysuria, no hematuria Musculoskeletalno joint pain, no muscle tenderness Skinjaundiced. Scattered ecchymoses on all 4 extremities. Neurono isolated weakness, no paresthesia Psychno depression, no anxiety Physical Exam 2 Physical Exam: General-alert and oriented x3, no fever, no chills HEENT-head atraumatic and normocephalic, pupils equal and reactive to light, scleral icterus noted, extraocular muscles intact Neck-no lymphadenopathy or thyromegaly, trachea midline Chest-clear to auscultation. No rales, wheezing or rhonchi Cardiac-regular rate and rhythm, normal S1 and S2 Abdomen-normal bowel sounds. Distention has increased due to ascites. No rebound or guarding. No masses Skin -the patient is jaundiced. Scattered bruising noted on all extremities Extremities-no cyanosis. No significant peripheral edema Neuro-cranial nerves II through XII intact, motor and sensory function within normal limits, strength symmetrical, no focal deficits Psych-normal affect, normal mood Results & Data Results & Data Vital Signs (Past 12 Hours) Vital Signs Temp Pulse Resp BP Pulse Ox O2 Del Method 06/19/24 10:45 36.7 C 74 16 116/72 99 Room Air 06/19/24 07:00 36.7 C 78 16 110/68 99 Room Air 06/19/24 03:37 36.5 C 78 18 122/72 99 Room Air Laboratory Results 06/19/24 06:49 06/19/24 06:49 PG Care Time/CCT Total # of Minutes Spent Total Time Spent with Patient: Total time spent is greater than 50% in coordination of care (as documented) at patient's floor/unit and/or counseling patient: Coding Level of Care Code 68324 SUB INP/OBS CARE 3/50MIN Diagnoses Hepatorenal syndrome K76.7 Elevated troponin R79.89 Spontaneous bacterial peritonitis K65.2 Elevated serum creatinine R79.89 Transaminitis R74.01 Hyponatremia E87.1 Alcohol use disorder, severe, dependence F10.20 Jaundice R17 Alcoholic hepatitis with ascites K70.11 Hyperkalemia E87.5
[2024-06-20 07:49] VITALS: RESP 16; O2SAT 97
[2024-06-20 07:53] LABS: Hematocrit (blood only) 22.4 % (42.0-52.0); Hemoglobin 7.9 g/dl (14.0-18.0); Mean Corpuscular Hgb Conc 35.3 g/dL (32.0-36.0); Mean Corpuscular Volume 99.1 fL (80.0-100.0); Mean Platelet Volume 10.3 fL (9.4-12.4); Platelet Count 269 K/uL (130-400); RDW Coefficient of Variation 19.5 % (11.5-14.5); RDW Standard Deviation 69.7 fL (36.4-46.3); Red Blood Count 2.26 M/uL (4.70-6.10)
[2024-06-20 08:13] LABS: Alanine Aminotransferase 86 U/L (7-52); Albumin Globulin Ratio 1.4 (0.9-2); Anion Gap 10 (3-11); Aspartate Aminotransferase 143 U/L (13-39); Bilirubin,Total 26.5 mg/dl (0.2-1.0); Calcium 8.1 mg/dl (8.6-10.3); Carbon Dioxide 18 mmol/L (21-32); Chloride 102 mmol/L (98-107); Creatinine Clr Calc Pharmacy 41.9 ml/min; Globulin 2.1 gm/dl (2.5-4.0); Glucose 117 mg/dl (70-99(Fasting)); Sodium 130 mmol/L (136-145); Total Protein 5.1 gm/dl (6.0-8.3)
[2024-06-20 08:16] LABS: Basophils # (auto) 0.06 K/uL (0.00-0.20); Basophils % (auto) 0.3 %; Echinocytes 1+; Eosinophils # (auto) 0.29 K/uL (0.00-0.50); Eosinophils % (auto) 1.5 %; Lymphocytes # (auto) 1.02 K/uL (1.20-3.40); Lymphocytes % (auto) 5.2 %; Monocytes # (auto) 1.92 K/uL (0.11-0.59); Monocytes % (auto) 9.7 %; Neutrophils # (auto) 16.08 K/uL (1.40-6.50); Neutrophils % (auto) 81.3 %; Polychromasia 1+; Target Cells 1+; White Blood Count 19.77 K/ul (4.8-10.8)
[2024-06-20 10:53] VITALS: TEMP 97.7
--- NOTE | 2024-06-20 12:01 | Discharge Summary ---
Discharge Summary Date of Service June 20, 2024 Principal Dx & Hospital Course #1 = Principal Diagnosis (1) Hepatorenal syndrome: Possible. Serum osmolarity was elevated earlier this admission. He was treated with IV fluids. Monitor urine output. (2) Elevated troponin: No evidence of acute coronary syndrome. (3) Spontaneous bacterial peritonitis: Suspected on admission. Treated with intravenous Rocephin. Parenteral antibiotics have been switched to oral cephalexin (4) Elevated serum creatinine: Consistent with acute renal failure. No obstruction seen on ultrasound. He was treated with IV fluids. Creatinine has decreased to 3.0 and hopefully will eventually return to baseline. Monitor urine output. Serial labs (5) Transaminitis: Liver enzymes are elevated due to alcoholic hepatitis present on admission. Serial labs (6) Hyponatremia: Sodium is low despite elevated serum osmolarity but improved with IV fluids. Serial labs (7) Alcohol use disorder, severe, dependence: Most likely cause of hepatitis. Alcohol intake cessation recommended. [facility] protocol. (8) Jaundice: Due to suspected alcohol induced hepatitis. (9) Alcoholic hepatitis with ascites: Alcohol cessation highly recommended. The patient underwent paracentesis twice this admission. Appreciate GI consultation and recommendations. 15 mm hepatic lesion seen on imaging will need outpatient follow-up (10) Hyperkalemia: Present on admission. Now resolved. ARB therapy has been discontinued. Plan discharge to [facility] today, June 20 Admission HPI Per Admitting Provider 53 year old man admitted with acute alcoholic hepatitis has had persistent melena. He is here for EGD Discharge Exam General-alert and oriented x3, no fever, no chills HEENT-head atraumatic and normocephalic, pupils equal and reactive to light, scleral icterus noted, extraocular muscles intact Neck-no lymphadenopathy or thyromegaly, trachea midline Chest-clear to auscultation. No rales, wheezing or rhonchi Cardiac-regular rate and rhythm, normal S1 and S2 Abdomen-normal bowel sounds. Distention has increased due to ascites. No rebound or guarding. No masses Skin -the patient is jaundiced. Scattered bruising noted on all extremities Extremities-no cyanosis. No significant peripheral edema Neuro-cranial nerves II through XII intact, motor and sensory function within normal limits, strength symmetrical, no focal deficits Psych-normal affect, normal mood Discharge Plan Discharge Items Patient Disposition: Transfer Inpatient Rehab Fac Reason For Visit: ETOH USE DISORDER,ETOH HEPATITIS Discharge Diagnosis: Suspected acute alcohol induced hepatitis, jaundice, acute renal failure, hyponatremia, hyperkalemia, lower GI bleeding with suspected internal hemorrhoidal bleeding, acute blood loss anemia Activity: Resume your previous activity Activity Comment: With assistance Non-emergency contact: Primary Care Provider Call non-emergency contact if: your symptoms worsen Follow-up/Referrals: Jeny Marte MD [Primary Care Provider] - Diet: Regular Addtl Attending Provider Instructions: Continue oral Keflex antibiotic for 10 more days. See primary care provider soon as possible after discharge from [facility] Pending Studies at Discharge: No Stand-Alone Forms: My [facility] Skilled Items Patient informed of condition?: Yes DNR: No Discharge Level of Care: Acute rehab Communicable Disease: No Discharge Prognosis: Stable Lines: None Urinary Catheter: No Medications and DC Order Prescriptions: New multivitamin with folic acid [Daily-Irma (with folic acid)] 400 mcg Tablet 1 tab PO QAM Qty: 0 0RF pantoprazole 40 mg Tablet,Delayed Release (Dr/Ec) 40 mg PO BID Qty: 0 0RF midodrine 10 mg Tablet 10 mg PO TID Qty: 0 0RF thiamine HCl (vitamin B1) 100 mg Tablet 200 mg PO DAILY Qty: 0 0RF folic acid 1 mg Tablet 1 mg PO DAILY Qty: 0 0RF lactulose 10 gram/15 mL Solution 30 g PO DAILY Qty: 0 0RF famotidine 20 mg Tablet 20 mg PO BID Qty: 0 0RF cephalexin 500 mg Capsule 500 mg PO QID Qty: 0 0RF Continued cyanocobalamin (vitamin B-12) [Vitamin B-12] 1,000 mcg Tablet 0 mcg PO DAILY Rx Instructions: PT AND FAMILY UNSURE OF STRENGTH folic acid 400 mcg tablet 400 mcg PO DAILY omeprazole 40 mg capsule,delayed release(DR/EC) 40 mg PO DAILY loratadine 10 mg Tablet 10 mg PO DAILY cholecalciferol (vitamin D3) [Vitamin D3] 25 mcg (1,000 unit) Capsule 0 mcg PO DAILY Rx Instructions: PT AND FAMILY UNSURE OF STRENGTH Jardiance 10 mg tablet 10 mg PO DAILY Discontinued losartan 100 mg tablet 100 mg PO DAILY Discharge Orders: Discharge Order (Routine); Ordered 06/20/24 Ordered By: Ney Khan/Other Patient Handouts: High Blood Sugar (Hyperglycemia), Hypoglycemia (Low Blood Sugar), Managing Type 2 Diabetes, How to Check Your Blood Sugar Admission Data Admit Date/Time: 06/07/24 18:14 Attending Provider: Ney Mcpherson Admit Provider: Willy Lo Primary Care Provider: Jeny Marte Other Providers: Noel Cabrera; Dannielle Chew Jr; [facility]; Dominik Roberts at [facility] Stay Data Consultations 06/07/24 18:03 ED Decision to Admit Stat 06/07/24 20:28 Consult Gastroenterology Routine Procedures Performed Operation Date: 06/15/24 17:10 Actual Procedures p Esophagogastroduodenoscopy - Dannielle Chew Jr, MD Diagnostic Imagining Performed 06/07/24 17:14 CT abd pelvis wo con Stat 06/08/24 03:10 MR abdomen wo con Stat 06/09/24 07:30 IR paracentesis abd w/img US Routine 06/15/24 US renal/blad retro comp Routine 06/19/24 11:41 IR paracentesis abd w/img US Urgent Pending Results Patient Have Any Pending Studies at Discharge: No Discharge Instructions Given to Patient (Per Discharging Provider) Continue oral Keflex antibiotic for 10 more days. See primary care provider soon as possible after discharge from [facility] Total Time Total Time Spent Total Time Spent (In Minutes): 50-minute Coding Level of Care Code 21817 INP/OBS DISCH >30 MIN Diagnoses Hepatorenal syndrome K76.7 Elevated troponin R79.89 Spontaneous bacterial peritonitis K65.2 Elevated serum creatinine R79.89 Transaminitis R74.01 Hyponatremia E87.1 Alcohol use disorder, severe, dependence F10.20 Jaundice R17 Alcoholic hepatitis with ascites K70.11 Hyperkalemia E87.5
[2024-06-20 12:04] LABS: Appearance Urine Cloudy (Clear); Bacteria Urine Automated None Seen (None Seen); Bilirubin Urine 3+ (Negative); Blood Urine 3+ (Negative); Color Urine Orange; Glucose Urine UA Negative (Negative); Granular Casts Urine Present /lpf (None Prsent); Ketones Urine Negative (Negative); Leukocyte Esterase Urine 2+ (Negative); Nitrite Urine Negative (Negative); Protein Urine 1+ (Negative); RBC Urine Automated >20 /hpf (0-2); Specific Gravity Urine 1.013 (1.000-1.030); Urobilinogen Urine Negative (Negative); WBC Urine Automated 21-50 /hpf (0-5); pH Urine 5.5 (4.5-7.5)
[2024-06-20] MEDS: cephALEXin 500 MG CAP PO SCH (12:52)
[2024-06-20 13:25] VITALS: BP 111/68; PULSE 75
== END 2024-06-20 14:22 | DRG 432 ==
LOC: SUATTDRO → ED 15:26 → EDINP 18:14 → SUATTDRO 18:14 → 2S 20:28